=== PATIENT | male | born 1945 | race Caucasian/White ===

== ENCOUNTER → 2017-03-11 | Outpatient (CLI) | payer MEDICARE, OTHER ==
--- NOTE | 2017-03-11 15:39 | WOMENS IMAGING REPORT ---
EXAM DESCRIPTION: BONE DENSITY HIP/SPINE COMPLETED DATE/TIME: 03/11/2017 10:58 am REASON FOR STUDY: M81.0 M81.0 AGE-RELATED OSTEOPOROSIS W/O CURRENT PATHOLOGICAL FRAC COMPARISON: None. TECHNIQUE: Dual-Energy X-ray Absorptiometry (DEXA) of the AP Spine and Hip. LIMITATIONS: None. FINDINGS: LUMBAR SPINE: The bone mineral density (BMD) measured from L1-L4 in the AP projection correlates with a T-score of +1.2, which is normal as defined by the World Health Organization. HIP: The bone mineral density (BMD) measured in the left femoral neck at the hip correlates with a T-score of -1.7, which is osteopenic as defined by the World Health Organization. IMPRESSION: 1. LUMBAR SPINE: Normal 2. HIP: Osteopenic COMMENT: The World Health Organization defines low BMD as follows: T-score: Normal: Greater than -1.0 Osteopenia: Between -1.0 and -2.5 Osteoporosis: Less than -2.5 without fractures Established osteoporosis: Less than -2.5 with fractures In general, you may wish to consider: Diagnosis Treatment Follow-up DEXA Normal BMD Prevention 2-3 years Osteopenia Prevention/Therapy 1-2 years Osteoporosis Therapy Yearly TECHNICAL DOCUMENTATION: JOB ID: [id number] [employer]- All Rights Reserved
== END ==
LOC: WI 10:18
PROVIDERS: ATTEND Specialist
DX: M81.0 Age-related osteoporosis without current pathological fracture (principal)
CPT/HCPCS: 77080

== ENCOUNTER → 2017-03-27 | Outpatient (CLI) | payer MEDICARE, OTHER ==
--- NOTE | 2017-03-27 12:20 | RADIOLOGY REPORT (SQ) ---
EXAM DESCRIPTION: HIP LEFT AP/LATERAL COMPLETED DATE/TIME: 03/27/2017 12:02 pm REASON FOR STUDY: STRAIN OF MUSCLE, FASCIA AND TENDON OF LEFT HIP, SEQUELA,PAIN IN LEFT HIP M25.552 PAIN IN LEFT HIP S76.012S STRAIN OF MUSCLE, FASCIA AND TENDON OF LEFT HIP, SE COMPARISON: None. NUMBER OF VIEWS: Two views. TECHNIQUE: AP pelvis and additional frog-leg view of the left hip. LIMITATIONS: None. FINDINGS: MINERALIZATION: Osteopenia. LEFT HIP: No fracture or dislocation. No worrisome bone lesions. Mild moderate degenerative joint s pace narrowing. RIGHT HIP: No fracture or dislocation. No worrisome bone lesions. Mild moderate degenerate joint sp nikki narrowing. PUBIS AND ISCHIUM: No fracture. PELVIS: No fracture. SACRUM: No fracture or dislocation. No worrisome bone lesions. Mild degenerative changes. LOWER LUMBAR SPINE: No fracture or dislocation. No worrisome bone lesions. No significant disc disea se. SOFT TISSUES: Numerous surgical clips noted in the pelvis projecting over the pubic symphysis. OTHER: No other significant finding. IMPRESSION: No acute fracture or dislocation identified. Mild moderate degenerative joint space lian rowing of both hips. TECHNICAL DOCUMENTATION: JOB ID: [id number] [employer]- All Rights Reserved
== END ==
LOC: OD 11:07
PROVIDERS: ATTEND Obstetrics & Gynecology
DX: M25.552 Pain in left hip (principal); S76.012S Strain of muscle, fascia and tendon of left hip, sequela; X58.XXXS Exposure to other specified factors, sequela

== ENCOUNTER 2017-09-25 00:32 | Inpatient (IN) | payer MEDICARE, OTHER ==
[2017-09-25] MEDS ORDERED: ONDANSETRON HCL INJ/PF 4 MG/2 ML SDV IV ONE (01:48)
[2017-09-25] MEDS ORDERED: NORMAL SALINE 1000 ML 1,000 ML IV ONE (01:48)
[2017-09-25 02:52] LABS: ABSOLUTE LYMPHOCYTES (AUTO) 0.6 10^3/uL (0.5-4.7); ABSOLUTE MONOCYTES (AUTO) 0.4 10^3/uL (0.1-1.4); BASOPHILS % (AUTO) 0.3 % (0-2); EOSINOPHILS % (AUTO) 0.2 % (0-6); HEMATOCRIT 26.5 % (37.9-51.0); HEMOGLOBIN 9.2 g/dL (13.5-17.0); MEAN CORPUSCULAR HEMOGLOBIN 37.7 pg (27.0-33.4); MEAN CORPUSCULAR HGB CONC 34.7 g/dL (32.0-36.0); MEAN CORPUSCULAR VOLUME 109 fl (80-97); MONOCYTES % (AUTO) 10.8 % (3-13); PLATELET COUNT 169 10^3/uL (150-450); RED BLOOD COUNT 2.44 10^6/uL (4.35-5.55); RED CELL DISTRIBUTION WIDTH 15.5 % (11.5-14.0); SEGMENTED NEUTROPHILS % (AUTO) 74.7 % (42-78); TOTAL CELLS COUNTED % (AUTO) 100 %
[2017-09-25 02:59] LABS: ALANINE AMINOTRANSFERASE 46 U/L (21-72); ALBUMIN 3.9 g/dL (3.5-5.0); ALKALINE PHOSPHATASE 71 U/L (38-126); ANION GAP 14 (5-19); ASPARTATE AMINO TRANSFERASE 36 U/L (17-59); BILIRUBIN,DIRECT 0.4 mg/dL (0.0-0.4); BILIRUBIN,TOTAL 0.5 mg/dL (0.2-1.3); BLOOD UREA NITROGEN 25 mg/dL (7-20); CARBON DIOXIDE 17 mmol/L (22-30); CHLORIDE 109 mmol/L (98-107); GLUCOSE 137 mg/dL (75-110); POTASSIUM 3.9 mmol/L (3.6-5.0); SODIUM 139.6 mmol/L (137-145); TOTAL PROTEIN 7.5 g/dL (6.3-8.2)
--- NOTE | 2017-09-25 03:27 | ER Document Report ---
ED General - General Chief Complaint: Diarrhea Stated Complaint: DIARRHEA Time Seen by Provider: 09/25/17 01:48 Notes: Patient is a 72-year-old male who presents with complaint of diarrhea and feeling very weak. He says over last 2-3 days he has felt very weak and started having watery stools. He says he has been drinking liquids but has not been eating food because he has not had much appetite. Blood in the stool. No fevers. No vomiting. No chest pain. No shortness of breath. He says he does have history of ulcerative colitis. He says he was diagnosed just a few years ago at [facility]. Is currently medication for that and says his medications have not recently changed. He takes Entivo for his ulcerative colitis. He denies ever needing any type of surgery for ulcerative colitis. He does have history of prostate cancer. He is not currently in any form of chemotherapy. TRAVEL OUTSIDE OF THE [place] IN LAST 30 DAYS: No - Related Data Allergies/Adverse Reactions: Penicillins Allergy (Severe, Verified 09/25/17 00:33) facial swelling, redness Past Medical History - Social History Smoking Status: Never Smoker Chew tobacco use (# tins/day): No Frequency of alcohol use: Rare Drug Abuse: None Family History: Reviewed & Not Pertinent Patient has suicidal ideation: No Patient has homicidal ideation: No - Past Medical History Cardiac Medical History: Reports: Hx Heart Attack - 2010, Hx Hypercholesterolemia, Hx Hypertension Denies: Hx Coronary Artery Disease Pulmonary Medical History: Denies: Hx Asthma, Hx Bronchitis, Hx COPD, Hx Pneumonia Neurological Medical History: Denies: Hx Cerebrovascular Accident, Hx Seizures Renal/ Medical History: Denies: Hx Peritoneal Dialysis GI Medical History: Reports: Hx Ulcerative Colitis Musculoskeltal Medical History: Denies Hx Arthritis Infectious Medical History: Past Surgical History: Reports: Hx Cardiac Surgery - StentComment Only: Hx Open Heart Surgery - Cath 05/15/22 - 3 stents - Immunizations Hx Diphtheria, Pertussis, Tetanus Vaccination: Yes Hx Pneumococcal Vaccination: 08/26/12 Review of Systems - Review of Systems Notes: My Normal Review Basic REVIEW OF SYSTEMS: CONSTITUTIONAL : Denies fever, chills, or sweats. Is felt weak. EENT: Denies eye, ear, throat, or mouth pain or symptoms. Denies nasal or sinus congestion. RESPIRATORY: Denies cough, cold, or chest congestion. Denies shortness of breath, difficulty breathing, or wheezing. GASTROINTESTINAL: Denies abdominal pain. Diarrhea. No vomiting. MUSCULOSKELETAL: Denies neck or back pain or joint pain or swelling. SKIN: Denies rash or skin lesions. NEUROLOGICAL: Denies altered mental status or loss of consciousness. Denies headache. Denies weakness or paralysis or loss of use of either side. Denies problems with gait or speech. Denies sensory or motor loss.ion. ALL OTHER SYSTEMS REVIEWED AND NEGATIVE. Physical Exam - Vital signs Vitals: Temp Pulse Resp BP Pulse Ox 98.4 F 56 L 23 H 101/83 96 09/25/17 00:45 09/25/17 00:45 09/25/17 00:45 09/25/17 00:45 09/25/17 00:45 - Notes Notes: General Appearance: Well nourished, alert, cooperative, no acute distress, no obvious discomfort. Vitals: reviewed, See vital signs table. Head: no swelling or tenderness to the head Eyes: PERRL, EOMI, Conjuctiva clear Mouth: No decreasd moisture Lungs: No wheezing, No rales, No rhonci, No accessory muscle use, good air exchange bilaterally. Heart: Normal rate, Regular rythm, No murmur, no rub Abdomen: Normal BS, soft, No rigidity, No abdominal tenderness, No guarding, no rebound, no abdominal masses, no organomegaly Extremities: strength 5/5 in all extremities, good pulses in all extremities, no swelling or tenderness in the extremities, no edema. Skin: warm, dry, appropriate color, no rash Neuro: speech clear, oriented x 3, normal affect, responds appropriately to questions. Course - Re-evaluation Re-evalutation: 09/25/17 03:44 She is family care physician is Dr. hendrix. Patient has received some IV fluids. His serum creatinine was 2.98. His last serum creatinine was 1.25. He is in acute renal failure. Is difficult to tell if this is dehydration of this is more medication related. He did start feeling weak just before his diarrhea started and therefore this could potentially be medication related and the weakness was related to the kidney failure. Due to his acute kidney failure we will admit the patient. Said no blood in the stool. He does have anemia which she says is chronic. He otherwise looks well. I did speak with the hospitalist , Dr. Burns, who agrees to admit the patient. Dictation of this chart was performed using voice recognition software; therefore, there may be some unintended grammatical errors. - Vital Signs Vital signs: Temp Pulse Resp BP Pulse Ox 98.4 F 56 L 23 H 101/83 96 09/25/17 00:45 09/25/17 00:45 09/25/17 00:45 09/25/17 00:45 09/25/17 00:45 - Laboratory Result Diagrams: 09/25/17 02:30 09/25/17 02:30 Laboratory results interpreted by me: 09/25/17 09/25/17 02:30 02:30 RBC 2.44 L Hgb 9.2 L Hct 26.5 L MCV 109 H MCH 37.7 H RDW 15.5 H Chloride 109 H Carbon Dioxide 17 L BUN 25 H Creatinine 2.98 H Est GFR ( Amer) 25 L Est GFR (Non-Af Amer) 21 L Glucose 137 H - EKG Interpretation by Me Additional EKG results interpreted by me: 09/25/17 03:27 EKG is reviewed and interpreted by me. EKG shows sinus rhythm with rate of [address] segment elevation. No acute changes comparison to his old EKG from March 27, 2016. UT interval is within normal range. QRS duration and QTc intervals are slightly prolonged. Discharge - Discharge Clinical Impression: Acute renal failure Qualifiers: Acute renal failure type: unspecified Qualified Code(s): N17.9 - Acute kidney failure, unspecified Diarrhea Qualifiers: Diarrhea type: unspecified type Qualified Code(s): R19.7 - Diarrhea, unspecified Condition: Stable Disposition: ADMITTED OBSERVATION Admitting Provider: Hospitalist Unit Admitted: Telemetry Referrals: ALEISHA FONG MD [Primary Care Provider] - Follow up as needed
[2017-09-25] MEDS ORDERED: IPRATROPIUM/ALBUTEROL 0.5-2.5 MG/3 ML AMPUL NEB PRN (03:45)
[2017-09-25] MEDS ORDERED: ACETAMINOPHEN 325 MG TABLET PO PRN (03:45)
[2017-09-25] MEDS ORDERED: MAG HYDROX/AL HYDROX/SIMETH SUSP 30 ML UDCUP PO PRN (03:45)
[2017-09-25] MEDS: NORMAL SALINE 1000 ML 1,000 ML IV SCH ×2 (05:06→07:34)
--- NOTE | 2017-09-25 06:18 | PDOC H&P ---
History of Present Illness Admission Date/PCP: 09/25/17 03:49 ALEISHA FONG MD Patient complains of: Diarrhea and generalized weakness with fatigue History of Present Illness: OSCAR JOHN is a 72 year old male with a past medical history of ulcerative colitis on entivo, prostate cancer status post brachii therapy and radiation 8 months ago, Morbid obesity will evaluate for metabolic cause with evaluation of thyroid function and dietitian consultation and chronic kidney disease. Patient presents after 5 days of diarrhea during which he was without fever but developed symptoms of gout in his foot prompting him to take double colchicine in addition to allopurinol 4 days. Get symptoms resolved but loose stools have persisted prompting him to seek evaluation emergency room. He is found to be without leukocytosis or fever but mild hypotension and acute on chronic renal failure. He started on an IV fluid challenge for the hospitalist for admission. Past Medical History Cardiac Medical History: Reports: Myocardial Infarction - 2010, Hyperlipidema, Hypertension Denies: Coronary Artery Disease Pulmonary Medical History: Denies: Asthma, Bronchitis, Chronic Obstructive Pulmonary Disease (COPD), Pneumonia Neurological Medical History: Denies: Seizures Endocrine Medical History: Reports: Obesity Malignancy Medical History: Reports: Other - Prostate cancer GI Medical History: Reports: Ulcerative Colitis Musculoskeltal Medical History: Denies: Arthritis Hematology: Reports: Anemia Past Surgical History Past Surgical History: Social History Information Source: Patient, [facility] Records Smoking Status: Never Smoker Frequency of Alcohol Use: Occasional Hx Recreational Drug Use: No Hx Prescription Drug Abuse: No - Advance Directive Resuscitation Status: Full Code Family History Family History: DM Parental Family History Reviewed: Yes Children Family History Reviewed: Yes Sibling(s) Family History Reviewed.: Yes Medication/Allergy Home Medications: Rosuvastatin Calcium [Crestor 20 mg Tablet] 20 mg PO QHS 01/18/12 Alfuzosin HCl [Uroxatral SR 10 mg Tablet] 1 tab.sr PO QHS 10/19/13 Finasteride [Proscar 5 mg Tablet] 1 tab PO DAILY 10/19/13 Clopidogrel Bisulfate [Plavix 75 mg Tablet] 75 mg PO DAILY 12/10/13 Esomeprazole Magnesium [Nexium] 40 mg PO DAILY 12/10/13 Allopurinol [Zyloprim 100 mg Tablet] 100 mg PO DAILY 01/18/15 Lisinopril [Prinivil 20 mg Tablet] 10 mg PO QHS 02/21/15 Metoprolol Succinate [Toprol Xl 50 mg Tab.sr] 50 mg PO DAILY 02/21/15 Azathioprine 50 mg PO DAILY 03/26/16 Vedolizumab [Entyvio] 300 mg IV ASDIR PRN 03/26/16 Oxycodone HCl/Acetaminophen [Percocet 5-325 mg Tablet] 1 tab PO ASDIR PRN #15 tablet 04/03/16 Allergies/Adverse Reactions: Penicillins Allergy (Severe, Verified 09/25/17 00:33) facial swelling, redness Review of Systems Constitutional: ABSENT: chills, fever(s), headache(s), weight gain, weight loss Eyes: ABSENT: visual disturbances Ears: ABSENT: hearing changes Cardiovascular: ABSENT: chest pain, dyspnea on exertion, edema, orthropnea, palpitations Respiratory: ABSENT: cough, hemoptysis Gastrointestinal: ABSENT: abdominal pain, constipation, diarrhea, hematemesis, hematochezia, nausea, vomiting Genitourinary: ABSENT: dysuria, hematuria Musculoskeletal: ABSENT: joint swelling Integumentary: ABSENT: rash, wounds Neurological: ABSENT: abnormal gait, abnormal speech, confusion, dizziness, focal weakness, syncope Psychiatric: ABSENT: anxiety, depression, homidical ideation, suicidal ideation Endocrine: ABSENT: cold intolerance, heat intolerance, polydipsia, polyuria Hematologic/Lymphatic: ABSENT: easy bleeding, easy bruising Physical Exam Vital Signs: Temp Pulse Resp BP Pulse Ox 98.4 F 56 L 23 H 101/83 96 09/25/17 00:45 09/25/17 00:45 09/25/17 00:45 09/25/17 00:45 09/25/17 00:45 General appearance: PRESENT: no acute distress, well-developed, well-nourished Head exam: PRESENT: atraumatic, normocephalic Eye exam: PRESENT: conjunctiva pink, EOMI, PERRLA. ABSENT: scleral icterus Ear exam: PRESENT: normal external ear exam Mouth exam: PRESENT: moist, tongue midline Neck exam: ABSENT: carotid bruit, JVD, lymphadenopathy, thyromegaly Respiratory exam: PRESENT: clear to auscultation lasha. ABSENT: rales, rhonchi, wheezes Cardiovascular exam: PRESENT: RRR. ABSENT: diastolic murmur, rubs, systolic murmur Pulses: PRESENT: normal dorsalis pedis pul Vascular exam: PRESENT: normal capillary refill GI/Abdominal exam: PRESENT: normal bowel sounds, soft. ABSENT: distended, guarding, mass, organolmegaly, rebound, tenderness Rectal exam: PRESENT: deferred Extremities exam: PRESENT: full ROM. ABSENT: calf tenderness, clubbing, pedal edema Neurological exam: PRESENT: alert, awake, oriented to person, oriented to place , oriented to time, oriented to situation, CN II-XII grossly intact. ABSENT: motor sensory deficit Psychiatric exam: PRESENT: appropriate affect, normal mood. ABSENT: homicidal ideation, suicidal ideation Skin exam: PRESENT: dry, intact, warm. ABSENT: cyanosis, rash Assessment & Plan - Diagnosis (1) Hypotension Is this a current diagnosis for this admission?: Yes Plan: Likely multifactorial given persistent diarrhea resulting in hypovolemia and metoprolol. IV fluid challenge, hold hypertensive medications reevaluate orthostatics. (2) Acute renal failure Qualifiers: Acute renal failure type: unspecified Qualified Code(s): N17.9 - Acute kidney failure, unspecified Is this a current diagnosis for this admission?: Yes Plan: Multifactorial secondary to diarrhea resulting in hypovolemia with metoprolol and colchicine 4 days. Correct hypotension and hypovolemia, avoid nephrotoxic meds and doses, education (3) Diarrhea Qualifiers: Diarrhea type: unspecified type Qualified Code(s): R19.7 - Diarrhea, unspecified Is this a current diagnosis for this admission?: Yes Plan: Most likely gastroenteritis exacerbated by colchicine. Supportive care (4) Morbid obesity Is this a current diagnosis for this admission?: Yes Plan: Morbid obesity will evaluate for metabolic cause with evaluation of thyroid function and dietitian consultation - Time Time Spent: 50 to 70 Minutes - Inpatient Certification Medical Necessity: Need Close Monitoring Due to Risk of Patient Decompensation
[2017-09-25] MEDS: LANSOPRAZOLE 30 MG TAB.RAP.DR PO SCH (06:34)
[2017-09-25] MEDS: HEPARIN SOD (PORCINE) 5,000 UNIT/ML 1 ML SYRINGE SUBCUT SCH ×3 (06:34→22:42)
[2017-09-25 06:59] LABS: ABSOLUTE LYMPHOCYTES (AUTO) 0.6 10^3/uL (0.5-4.7); ABSOLUTE MONOCYTES (AUTO) 0.4 10^3/uL (0.1-1.4); ABSOLUTE NEUT (AUTO) 2.2 10^3/uL (1.7-8.2); BASOPHILS % (AUTO) 0.3 % (0-2); EOSINOPHILS % (AUTO) 0.3 % (0-6); HEMATOCRIT 23.3 % (37.9-51.0); LYMPHOCYTES % (AUTO) 18.9 % (13-45); MEAN CORPUSCULAR HEMOGLOBIN 37.7 pg (27.0-33.4); MEAN CORPUSCULAR HGB CONC 34.5 g/dL (32.0-36.0); MEAN CORPUSCULAR VOLUME 109 fl (80-97); MONOCYTES % (AUTO) 12.1 % (3-13); PLATELET COUNT 148 10^3/uL (150-450); RED BLOOD COUNT 2.13 10^6/uL (4.35-5.55); RED CELL DISTRIBUTION WIDTH 15.3 % (11.5-14.0); SEGMENTED NEUTROPHILS % (AUTO) 68.4 % (42-78); TOTAL CELLS COUNTED % (AUTO) 100 %; WHITE BLOOD COUNT 3.2 10^3/uL (4.0-10.5)
[2017-09-25 07:12] LABS: ANION GAP 10 (5-19); BLOOD UREA NITROGEN 24 mg/dL (7-20); CALCIUM 8.1 mg/dL (8.4-10.2); CARBON DIOXIDE 19 mmol/L (22-30); CHLORIDE 110 mmol/L (98-107); GLUCOSE 101 mg/dL (75-110); POTASSIUM 3.8 mmol/L (3.6-5.0); SODIUM 139.2 mmol/L (137-145)
--- NOTE | 2017-09-25 08:07 | EKG REPORT ---
SEVERITY:- ABNORMAL ECG - SINUS RHYTHM IVCD, CONSIDER ATYPICAL RBBB : Confirmed by: Petey Petty MD 25-Sep-2017 08:06:47
[2017-09-25] MEDS: DOCUSATE SODIUM 100 MG CAPSULE PO SCH (09:16)
[2017-09-25] MEDS: CLOPIDOGREL BISULFATE 75 MG TABLET PO SCH (09:18)
[2017-09-25] MEDS ORDERED: FINASTERIDE 5 MG TABLET PO SCH (10:00)
--- NOTE | 2017-09-25 15:56 | PDOC PROGRESS REPORT ---
Subjective Progress Note for:: 09/25/17 Subjective:: Patient seen on rounds. He is resting in bed. He denies any breath, dyspnea or chest pain. Denies any dizziness being supine. He states the dizziness has improved since he is coming in while standing. He continues to have frequent diarrhea stools. He denies any abdominal pain or nausea. He denies any fever or chills. He denies any dysuria. He denies any significant arthralgias or myalgias. Remaining review of systems are negative. Reason For Visit: HYPOTENSION, ARF, UC FLAIR Physical Exam Vital Signs: Temp Pulse Resp BP Pulse Ox 97.8 F 66 18 109/50 L 99 09/25/17 11:02 09/25/17 14:46 09/25/17 14:46 09/25/17 11:02 09/25/17 14:46 Intake & Output 09/24/17 09/25/17 09/26/17 06:59 06:59 06:59 Output Total 200 Balance -200 General appearance: PRESENT: no acute distress, morbidly obese, well-developed, well-nourished Head exam: PRESENT: atraumatic, normocephalic Eye exam: PRESENT: conjunctiva pale, EOMI, PERRLA. ABSENT: scleral icterus Ear exam: PRESENT: normal external ear exam Mouth exam: PRESENT: dry mucosa, tongue midline Neck exam: ABSENT: carotid bruit, JVD, lymphadenopathy, thyromegaly Respiratory exam: PRESENT: clear to auscultation lasha. ABSENT: rales, rhonchi, wheezes Cardiovascular exam: PRESENT: RRR. ABSENT: diastolic murmur, rubs, systolic murmur Pulses: PRESENT: normal dorsalis pedis pul Vascular exam: PRESENT: normal capillary refill GI/Abdominal exam: PRESENT: normal bowel sounds, soft. ABSENT: distended, guarding, mass, organolmegaly, rebound, tenderness Rectal exam: PRESENT: deferred Extremities exam: PRESENT: full ROM. ABSENT: calf tenderness, clubbing, pedal edema Neurological exam: PRESENT: alert, awake, oriented to person, oriented to place , oriented to time, oriented to situation, CN II-XII grossly intact. ABSENT: motor sensory deficit Psychiatric exam: PRESENT: appropriate affect, normal mood. ABSENT: homicidal ideation, suicidal ideation Skin exam: PRESENT: abrasion Results Laboratory Results: 09/25/17 06:30 09/25/17 06:30 09/25/17 09/25/17 06:30 06:30 WBC 3.2 L RBC 2.13 L Hgb 8.0 L Hct 23.3 L MCV 109 H MCH 37.7 H MCHC 34.5 RDW 15.3 H Plt Count 148 L Seg Neutrophils % 68.4 Lymphocytes % 18.9 Monocytes % 12.1 Eosinophils % 0.3 Basophils % 0.3 Absolute Neutrophils 2.2 Absolute Lymphocytes 0.6 Absolute Monocytes 0.4 Absolute Eosinophils 0.0 Absolute Basophils 0.0 Sodium 139.2 Potassium 3.8 Chloride 110 H Carbon Dioxide 19 L Anion Gap 10 BUN 24 H Creatinine 2.63 H Est GFR ( Amer) 29 L Est GFR (Non-Af Amer) 24 L Glucose 101 Calcium 8.1 L Assessment & Plan - Diagnosis (1) Acute renal failure Qualifiers: Acute renal failure type: unspecified Qualified Code(s): N17.9 - Acute kidney failure, unspecified Is this a current diagnosis for this admission?: Yes Plan: Baseline creatinine is 1.1-1.5. He is still 2.3. We will continue IV hydration will add sodium bicarbonate and monitor. We will hold his KRISS inhibitor and avoid all nephrotoxic medications and dosage. (2) Metabolic acidosis Is this a current diagnosis for this admission?: Yes Plan: Secondary to acute kidney injury. We will continue to IV hydrate and replete sodium bicarbonate (3) Diarrhea Qualifiers: Diarrhea type: unspecified type Qualified Code(s): R19.7 - Diarrhea, unspecified Is this a current diagnosis for this admission?: Yes Plan: We will send for culture and check for guaiac occult blood (4) Hypotension Qualifiers: Hypotension type: hypotension due to drug Qualified Code(s): I95.2 - Hypotension due to drugs Is this a current diagnosis for this admission?: Yes Plan: Dehydration from diarrhea and KRISS inhibitor (5) Iron deficiency anemia Qualifiers: Iron deficiency anemia type: unspecified iron deficiency Qualified Code(s) : D50.9 - Iron deficiency anemia, unspecified Is this a current diagnosis for this admission?: Yes Plan: We will check stool for occult blood. He has not noted any blood in his diarrhea. He has a history for of iron deficient deficiency anemia. He had hemoglobin checked in hematology on the which was 9.8. He was 9.2 on arrival here and now down to 8 this morning. Some of this may be dilutional andtransfuse if less than 8 will obtain CBC this afternoon (6) Morbid obesity Is this a current diagnosis for this admission?: Yes (7) Ulcerative colitis Qualifiers: Ulcerative colitis location: unspecified ulcerative colitis location Digestive disease complication type: without complication Qualified Code(s): K51.90 - Ulcerative colitis, unspecified, without complications Is this a current diagnosis for this admission?: Yes Plan: On [employer] and [employer] - Time Time Spent with patient: 25-34 minutes Smoking Cessation Education: 3 to 10 minutes Medications reviewed and adjusted accordingly: Yes Anticipated discharge: Home Within: within 24 hours
[2017-09-25] MEDS: TAMSULOSIN HCL 0.4 MG CAP.SR.24H PO SCH (17:58)
[2017-09-25] MEDS: SODIUM BICARBONATE 650 MG TABLET PO SCH ×2 (17:59→23:48)
[2017-09-25 18:04] LABS: ABSOLUTE LYMPHOCYTES (AUTO) 0.6 10^3/uL (0.5-4.7); ABSOLUTE MONOCYTES (AUTO) 0.3 10^3/uL (0.1-1.4); BASOPHILS % (AUTO) 0.4 % (0-2); HEMATOCRIT 23.8 % (37.9-51.0); HEMOGLOBIN 8.1 g/dL (13.5-17.0); LYMPHOCYTES % (AUTO) 19.7 % (13-45); MEAN CORPUSCULAR HEMOGLOBIN 37.5 pg (27.0-33.4); MEAN CORPUSCULAR HGB CONC 34.1 g/dL (32.0-36.0); MEAN CORPUSCULAR VOLUME 110 fl (80-97); MONOCYTES % (AUTO) 11.2 % (3-13); PLATELET COUNT 143 10^3/uL (150-450); RED BLOOD COUNT 2.16 10^6/uL (4.35-5.55); RED CELL DISTRIBUTION WIDTH 15.1 % (11.5-14.0); SEGMENTED NEUTROPHILS % (AUTO) 67.7 % (42-78); TOTAL CELLS COUNTED % (AUTO) 100 %; WHITE BLOOD COUNT 2.9 10^3/uL (4.0-10.5)
[2017-09-25] MEDS: NORMAL SALINE 1000 ML 1,000 ML IV PRN (19:30)
[2017-09-25] MEDS ORDERED: LISINOPRIL 10 MG TABLET PO SCH (22:00)
[2017-09-25] MEDS ORDERED: (PENDING PHARMACY ID) (Rosuvastatin Calcium [Crestor] 20 MG) PO SCH (22:00)
[2017-09-25] MEDS: ATORVASTATIN CALCIUM 40 MG TABLET PO SCH (22:39)
[2017-09-26] MEDS: NORMAL SALINE 1000 ML 1,000 ML IV PRN (05:46)
[2017-09-26] MEDS: LANSOPRAZOLE 30 MG TAB.RAP.DR PO SCH (05:47)
[2017-09-26] MEDS: SODIUM BICARBONATE 650 MG TABLET PO SCH ×3 (05:47→18:48)
[2017-09-26] MEDS: HEPARIN SOD (PORCINE) 5,000 UNIT/ML 1 ML SYRINGE SUBCUT SCH ×3 (05:47→21:48)
[2017-09-26 07:10] LABS: ABSOLUTE LYMPHOCYTES (AUTO) 0.4 10^3/uL (0.5-4.7); ABSOLUTE MONOCYTES (AUTO) 0.3 10^3/uL (0.1-1.4); ABSOLUTE NEUT (AUTO) 1.9 10^3/uL (1.7-8.2); BASOPHILS % (AUTO) 0.4 % (0-2); HEMATOCRIT 22.5 % (37.9-51.0); LYMPHOCYTES % (AUTO) 15.9 % (13-45); MEAN CORPUSCULAR HEMOGLOBIN 37.5 pg (27.0-33.4); MEAN CORPUSCULAR HGB CONC 34.8 g/dL (32.0-36.0); MEAN CORPUSCULAR VOLUME 108 fl (80-97); MONOCYTES % (AUTO) 9.9 % (3-13); PLATELET COUNT 130 10^3/uL (150-450); RED BLOOD COUNT 2.09 10^6/uL (4.35-5.55); RED CELL DISTRIBUTION WIDTH 15.5 % (11.5-14.0); SEGMENTED NEUTROPHILS % (AUTO) 72.8 % (42-78); TOTAL CELLS COUNTED % (AUTO) 100 %; WHITE BLOOD COUNT 2.7 10^3/uL (4.0-10.5)
[2017-09-26 07:14] LABS: HEMOGLOBIN 7.8 g/dL (13.5-17.0)
[2017-09-26 07:30] LABS: ANION GAP 9 (5-19); BLOOD UREA NITROGEN 19 mg/dL (7-20); CALCIUM 8.4 mg/dL (8.4-10.2); CARBON DIOXIDE 19 mmol/L (22-30); CHLORIDE 112 mmol/L (98-107); GLUCOSE 90 mg/dL (75-110)
[2017-09-26] MEDS: AZATHIOPRINE 50 MG TABLET PO SCH (11:26)
[2017-09-26] MEDS: DOCUSATE SODIUM 100 MG CAPSULE PO SCH (11:26)
[2017-09-26] MEDS: CLOPIDOGREL BISULFATE 75 MG TABLET PO SCH (11:26)
[2017-09-26] MEDS: ALLOPURINOL 100 MG TABLET PO SCH (11:26)
[2017-09-26] MEDS ORDERED: FUROSEMIDE INJ/PF 20 MG/2 ML SDV IV PRN (15:07)
[2017-09-26] MEDS ORDERED: NORMAL SALINE 250 ML IV PRN ×2 (15:07)
--- NOTE | 2017-09-26 15:24 | PDOC PROGRESS REPORT ---
Subjective Progress Note for:: 09/26/17 Subjective:: Patient states she is doing extremely well he has not had any further diarrhea No abdominal pain No fever no chills Reason For Visit: JEWEL, METABOLIC ACIDOSIS, ANEMIA Physical Exam Vital Signs: Temp Pulse Resp BP Pulse Ox 99.2 F 78 16 111/61 91 L 09/26/17 03:48 09/26/17 14:00 09/26/17 13:22 09/26/17 03:48 09/26/17 03:48 Intake & Output 09/25/17 09/26/17 09/27/17 00:59 00:59 00:59 Intake Total 5 1692 Output Total 200 200 Balance -195 1492 Weight 129.9 kg 133.8 kg General appearance: PRESENT: no acute distress, morbidly obese, well-developed, well-nourished Head exam: PRESENT: atraumatic, normocephalic Eye exam: PRESENT: conjunctiva pale, EOMI, PERRLA. ABSENT: scleral icterus Ear exam: PRESENT: normal external ear exam Mouth exam: PRESENT: dry mucosa, tongue midline Neck exam: ABSENT: carotid bruit, JVD, lymphadenopathy, thyromegaly Respiratory exam: PRESENT: clear to auscultation lasha. ABSENT: rales, rhonchi, wheezes Cardiovascular exam: PRESENT: RRR. ABSENT: diastolic murmur, rubs, systolic murmur Pulses: PRESENT: normal dorsalis pedis pul Vascular exam: PRESENT: normal capillary refill GI/Abdominal exam: PRESENT: normal bowel sounds, soft. ABSENT: distended, guarding, mass, organolmegaly, rebound, tenderness Rectal exam: PRESENT: deferred Extremities exam: PRESENT: full ROM. ABSENT: calf tenderness, clubbing, pedal edema Results Laboratory Results: 09/26/17 05:30 09/26/17 05:30 09/25/17 09/26/17 09/26/17 17:33 05:30 05:30 WBC 2.9 L 2.7 L RBC 2.16 L 2.09 L Hgb 8.1 L 7.8 L Hct 23.8 L 22.5 L MCV 110 H 108 H MCH 37.5 H 37.5 H MCHC 34.1 34.8 RDW 15.1 H 15.5 H Plt Count 143 L 130 L Seg Neutrophils % 67.7 72.8 Lymphocytes % 19.7 15.9 Monocytes % 11.2 9.9 Eosinophils % 1.0 1.0 Basophils % 0.4 0.4 Absolute Neutrophils 2.0 1.9 Absolute Lymphocytes 0.6 0.4 L Absolute Monocytes 0.3 0.3 Absolute Eosinophils 0.0 0.0 Absolute Basophils 0.0 0.0 Sodium 140.0 Potassium 4.0 Chloride 112 H Carbon Dioxide 19 L Anion Gap 9 BUN 19 Creatinine 1.37 H Est GFR ( Amer) > 60 Est GFR (Non-Af Amer) 51 L Glucose 90 Calcium 8.4 Assessment & Plan - Diagnosis (1) Anemia Qualifiers: Anemia type: unspecified type Qualified Code(s): D64.9 - Anemia, unspecified Is this a current diagnosis for this admission?: Yes Plan: Anemia likely secondary to chronic disease ; patient is on chemotherapeutic agents ; will transfuse 2 units of packed red cells We will review iron B12 studies (2) Acute renal failure Qualifiers: Acute renal failure type: unspecified Qualified Code(s): N17.9 - Acute kidney failure, unspecified Is this a current diagnosis for this admission?: Yes Plan: Resolving (3) Ulcerative colitis Qualifiers: Ulcerative colitis location: unspecified ulcerative colitis location Digestive disease complication type: without complication Qualified Code(s): K51.90 - Ulcerative colitis, unspecified, without complications Is this a current diagnosis for this admission?: Yes - Time Time Spent with patient: Patient may be discharged in a.m. if clinically stable Repeat CBC and BMP in a.m. Time Spent with patient: 25-34 minutes
[2017-09-26 18:11] LABS: FOLATE 6.69 ng/mL (>2.76)
[2017-09-26] MEDS: TAMSULOSIN HCL 0.4 MG CAP.SR.24H PO SCH (18:48)
[2017-09-26] MEDS: ATORVASTATIN CALCIUM 40 MG TABLET PO SCH (21:47)
[2017-09-27] MEDS: SODIUM BICARBONATE 650 MG TABLET PO SCH ×3 (00:31→11:16)
[2017-09-27 03:46] LABS: ANION GAP 14 (5-19); BLOOD UREA NITROGEN 15 mg/dL (7-20); CALCIUM 8.5 mg/dL (8.4-10.2); CARBON DIOXIDE 21 mmol/L (22-30); CHLORIDE 106 mmol/L (98-107); GLUCOSE 103 mg/dL (75-110); POTASSIUM 3.9 mmol/L (3.6-5.0)
[2017-09-27 03:59] LABS: ABSOLUTE LYMPHOCYTES (AUTO) 0.5 10^3/uL (0.5-4.7); ABSOLUTE MONOCYTES (AUTO) 0.3 10^3/uL (0.1-1.4); ABSOLUTE NEUT (AUTO) 1.6 10^3/uL (1.7-8.2); BASOPHILS % (AUTO) 0.3 % (0-2); EOSINOPHILS % (AUTO) 0.9 % (0-6); HEMATOCRIT 28.5 % (37.9-51.0); LYMPHOCYTES % (AUTO) 20.9 % (13-45); MEAN CORPUSCULAR HEMOGLOBIN 35.2 pg (27.0-33.4); MEAN CORPUSCULAR HGB CONC 34.6 g/dL (32.0-36.0); MONOCYTES % (AUTO) 12.1 % (3-13); PLATELET COUNT 139 10^3/uL (150-450); RED CELL DISTRIBUTION WIDTH 21.6 % (11.5-14.0); SEGMENTED NEUTROPHILS % (AUTO) 65.8 % (42-78); TOTAL CELLS COUNTED % (AUTO) 100 %; WHITE BLOOD COUNT 2.4 10^3/uL (4.0-10.5)
[2017-09-27 04:00] LABS: HEMOGLOBIN 9.9 g/dL (13.5-17.0)
[2017-09-27 04:01] LABS: MEAN CORPUSCULAR VOLUME 102 fl (80-97)
[2017-09-27] MEDS: HEPARIN SOD (PORCINE) 5,000 UNIT/ML 1 ML SYRINGE SUBCUT SCH ×2 (06:15→13:11)
[2017-09-27] MEDS: LANSOPRAZOLE 30 MG TAB.RAP.DR PO SCH (06:15)
[2017-09-27 08:30] VITALS: BP 98/55
[2017-09-27] MEDS: DOCUSATE SODIUM 100 MG CAPSULE PO SCH (09:09)
[2017-09-27] MEDS: AZATHIOPRINE 50 MG TABLET PO SCH (11:12)
[2017-09-27] MEDS: CLOPIDOGREL BISULFATE 75 MG TABLET PO SCH (11:14)
[2017-09-27] MEDS: ALLOPURINOL 100 MG TABLET PO SCH (11:14)
[2017-09-27] MEDS ORDERED: FERUMOXYTOL 510 MG in NORMAL SALINE 100 ML IV ONE (12:06)
--- NOTE | 2017-09-27 12:21 | PDOC DISCHARGE SUMMARY ---
General - Admit/Disc Date/PCP Admission Date/Primary Care Provider: 09/25/17 03:49 ALEISHA FONG MD Discharge Date: 09/27/17 - Discharge Diagnosis (1) Anemia Is this a current diagnosis for this admission?: Yes (2) Acute renal failure Is this a current diagnosis for this admission?: Yes (3) Ulcerative colitis Is this a current diagnosis for this admission?: Yes - Additional Information Resuscitation Status: Full Code Discharge Activity: Activity As Tolerated Home Medications: Alfuzosin HCl [Uroxatral] 10 mg PO DAILY 09/25/17 Allopurinol [Zyloprim 100 mg Tablet] 100 mg PO DAILY 09/25/17 Azathioprine [Imuran 50 mg Tablet] 50 mg PO DAILY 09/25/17 Clopidogrel Bisulfate [Plavix 75 mg Tablet] 75 mg PO DAILY 09/25/17 Lisinopril [Prinivil 10 mg Tablet] 10 mg PO DAILY 09/25/17 Metoprolol Succinate [Toprol Xl 50 mg Tab.sr] 50 mg PO DAILY 09/25/17 Pantoprazole Sodium [Protonix] 40 mg PO DAILY 09/25/17 Rosuvastatin Calcium [Crestor] 20 mg PO QHS 09/25/17 History of Present Illness Patient complains of: diarrhea dehydration History of Present Illness: OSCAR JOHN is a 72 year old male with a past medical history of ulcerative colitis on entivo, prostate cancer status post brachii therapy and radiation 8 months ago, Morbid obesity will evaluate for metabolic cause with evaluation of thyroid function and dietitian consultation and chronic kidney disease. Patient presents after 5 days of diarrhea during which he was without fever but developed symptoms of gout in his foot prompting him to take double colchicine in addition to allopurinol 4 days. Get symptoms resolved but loose stools have persisted prompting him to seek evaluation emergency room. He is found to be without leukocytosis or fever but mild hypotension and acute on chronic renal failure. He started on an IV fluid challenge for the hospitalist for admission. Hospital Course Hospital Course: (1) Anemia Iron deficiency anemia and anemia of chronic disease Serum iron was low at 18 vitamin B12 folate were within normal range Patient was transfused 2 units of packed red cells and his H&H is 9 and 28 at discharge Patient did not want to have iron replacement during his hospitalization and wishes to follow-up with Dr. Redmond (2) Acute on chronic renal failure Patient has CKD stage III His creatinine was close to 3 on admission After hydration it is 1.3 close to baseline (3) Ulcerative colitis We were concerned about an exacerbation of ulcerative colitis CRP is elevated Patient does have low-grade fever We discussed discharging the patient on Cipro and Flagyl Patient is reluctant to take antibiotics and states he will follow-up with his own systems administrator Noted that patient does not have any GI diarrhea and abdominal pain at time of discharge Patient is to continue his present medications Physical Exam Vital Signs: Temp Pulse Resp BP Pulse Ox 100.6 F H 89 19 98/55 L 98 09/27/17 08:00 09/27/17 08:00 09/27/17 08:00 09/27/17 08:00 09/27/17 08:00 Intake & Output 09/26/17 09/27/17 09/28/17 00:59 00:59 00:59 Intake Total 5 2042 2450 Output Total 165 087 3387 Balance -195 1842 350 Weight 129.9 kg 133.8 kg 133.8 kg General appearance: PRESENT: no acute distress, morbidly obese, well-developed, well-nourished Head exam: PRESENT: atraumatic, normocephalic Eye exam: PRESENT: conjunctiva pale, EOMI, PERRLA. ABSENT: scleral icterus Ear exam: PRESENT: normal external ear exam Mouth exam: PRESENT: dry mucosa, tongue midline Neck exam: ABSENT: carotid bruit, JVD, lymphadenopathy, thyromegaly Respiratory exam: PRESENT: clear to auscultation lasha. ABSENT: rales, rhonchi, wheezes Cardiovascular exam: PRESENT: RRR. ABSENT: diastolic murmur, rubs, systolic murmur Pulses: PRESENT: normal dorsalis pedis pul Vascular exam: PRESENT: normal capillary refill GI/Abdominal exam: PRESENT: normal bowel sounds, soft. ABSENT: distended, guarding, mass, organolmegaly, rebound, tenderness Rectal exam: PRESENT: deferred Extremities exam: PRESENT: full ROM. ABSENT: calf tenderness, clubbing, pedal edema Results Laboratory Results: 09/27/17 03:15 09/27/17 03:15 09/26/17 09/26/17 09/27/17 05:30 15:30 03:15 WBC 2.4 L RBC 2.80 L Hgb 9.9 L D Hct 28.5 L MCV 102 H D MCH 35.2 H MCHC 34.6 RDW 21.6 H Plt Count 139 L Seg Neutrophils % 65.8 Lymphocytes % 20.9 Monocytes % 12.1 Eosinophils % 0.9 Basophils % 0.3 Absolute Neutrophils 1.6 L Absolute Lymphocytes 0.5 Absolute Monocytes 0.3 Absolute Eosinophils 0.0 Absolute Basophils 0.0 Sodium Potassium Chloride Carbon Dioxide Anion Gap BUN Creatinine Est GFR ( Amer) Est GFR (Non-Af Amer) Glucose Calcium Iron 18.0 L TIBC 307 % Saturation 6 Ferritin 89.70 Vitamin B12 452.0 Folate 6.69 Blood Type O POSITIVE Antibody Screen NEGATIVE 09/27/17 03:15 WBC RBC Hgb Hct MCV MCH MCHC RDW Plt Count Seg Neutrophils % Lymphocytes % Monocytes % Eosinophils % Basophils % Absolute Neutrophils Absolute Lymphocytes Absolute Monocytes Absolute Eosinophils Absolute Basophils Sodium 141.0 Potassium 3.9 Chloride 106 Carbon Dioxide 21 L Anion Gap 14 BUN 15 Creatinine 1.29 H Est GFR ( Amer) > 60 Est GFR (Non-Af Amer) 55 L Glucose 103 Calcium 8.5 Iron TIBC % Saturation Ferritin Vitamin B12 Folate Blood Type Antibody Screen Plan Discharge Plan: Discharge home; follow-up with hematology and GI Time Spent: Greater than 30 Minutes
== END 2017-09-27 13:31 | disposition home or self-care (01) | DRG 683 ==
LOC: ER 00:32 → EH 03:49 → OBSVTOIN 03:49 → EH 08:49 → 4S 16:46
PROVIDERS: ADMIT Internal Medicine; ATTEND Internal Medicine
PROC: 30233N1 Transfusion of Nonautologous Red Blood Cells into Peripheral Vein, Percutaneous Approach (ICD-10-PCS; principal; 2017-09-26)
DX: N17.9 Acute kidney failure, unspecified (principal); K51.90 Ulcerative colitis, unspecified, without complications; Z68.42 Body mass index [BMI] 45.0-49.9, adult; E87.2 Acidosis; E78.00 Pure hypercholesterolemia, unspecified; D63.1 Anemia in chronic kidney disease; I12.9 Hypertensive chronic kidney disease with stage 1 through stage 4 chronic kidney disease, or unspecified chronic kidney disease; N18.3 Chronic kidney disease, stage 3 (moderate); I95.2 Hypotension due to drugs; T50.4X5A Adverse effect of drugs affecting uric acid metabolism, initial encounter; C61 Malignant neoplasm of prostate; E66.01 Morbid (severe) obesity due to excess calories; Y92.9 Unspecified place or not applicable; I25.2 Old myocardial infarction; Z79.01 Long term (current) use of anticoagulants; Z79.899 Other long term (current) drug therapy
CPT/HCPCS: 36415; 36430; 80048; 80053; 82550; 82607; 82728; 82746; 83540; 83550; 84443; 85025; 85652; 86850; 86900; 86901; 86920; 93005; 93010; 96360; 96361; 96372; 99285; G0378; J1644; J1940; J7030; J7500; P9016

== ENCOUNTER 2017-10-07 12:09 | Emergency (ER) | payer MEDICARE, OTHER ==
--- NOTE | 2017-10-07 12:45 | ER Document Report ---
ED Medical Screen (RME) - General Chief Complaint: Chest Pain Stated Complaint: CHEST PAIN Time Seen by Provider: 10/07/17 12:43 Notes: Patient was sent from Dr. Melvin's office. He was sent for severe weakness and some right-sided chest pain. CBC was already performed at the doctor's office this morning. It is included on his chart. TRAVEL OUTSIDE OF THE [place] IN LAST 30 DAYS: No - Related Data Allergies/Adverse Reactions: Penicillins Allergy (Severe, Verified 09/25/17 00:33) facial swelling, redness Past Medical History - Social History Chew tobacco use (# tins/day): No Frequency of alcohol use: Rare Drug Abuse: None - Past Medical History Cardiac Medical History: Reports: Hx Heart Attack - 2010, Hx Hypercholesterolemia, Hx Hypertension Denies: Hx Coronary Artery Disease Pulmonary Medical History: Denies: Hx Asthma, Hx Bronchitis, Hx COPD, Hx Pneumonia Neurological Medical History: Denies: Hx Cerebrovascular Accident, Hx Seizures Renal/ Medical History: Denies: Hx Peritoneal Dialysis GI Medical History: Reports: Hx Ulcerative Colitis Musculoskeltal Medical History: Denies Hx Arthritis Psychiatric Medical History: Reports: Hx Depression Infectious Medical History: Past Surgical History: Reports: Hx Cardiac Surgery - StentComment Only: Hx Open Heart Surgery - Cath 05/15/22 - 3 stents - Immunizations Hx Diphtheria, Pertussis, Tetanus Vaccination: Yes History of Influenza Vaccine for 05/2017 - 10/2017 Season: Yes Influenza Administration Date for 05/2017 - 10/2017 Season: 05/26/17 Physical Exam - Vital signs Vitals: Temp Pulse Resp BP Pulse Ox 98.6 F 86 22 H 101/46 L 95 10/07/17 12:18 10/07/17 12:18 10/07/17 12:18 10/07/17 12:18 10/07/17 12:18 Course - Vital Signs Vital signs: Temp Pulse Resp BP Pulse Ox 98.6 F 86 22 H 101/46 L 95 10/07/17 12:18 10/07/17 12:18 10/07/17 12:18 10/07/17 12:18 10/07/17 12:18
--- NOTE | 2017-10-07 13:53 | RADIOLOGY REPORT (SQ) ---
EXAM DESCRIPTION: CHEST PA/LAT COMPLETED DATE/TIME: 10/07/2017 1:22 pm REASON FOR STUDY: weakness/sob COMPARISON: 04/03/2016 and 03/27/2016 EXAM PARAMETERS: NUMBER OF VIEWS: two views TECHNIQUE: Digital Frontal and Lateral radiographic views of the chest acquired. RADIATION DOSE: NA LIMITATIONS: none FINDINGS: LUNGS AND PLEURA: Patchy atelectatic basilar markings. No consolidation or pleural effusi on. MEDIASTINUM AND HILAR STRUCTURES: Stable appearance. HEART AND VASCULAR STRUCTURES: Cardiomegaly stable. No overt CHF. BONES: No acute findings. HARDWARE: Port on the right. OTHER: No other significant finding. IMPRESSION: Stable cardiomegaly. Patchy atelectatic basilar markings. TECHNICAL DOCUMENTATION: JOB ID: [id number] [employer]- All Rights Reserved
[2017-10-07 14:27] LABS: APPEARANCE,URINE CLOUDY; BILIRUBIN,URINE NEGATIVE (NEGATIVE); COLOR,URINE AMBER; GLUCOSE, URINE NEGATIVE (NEGATIVE); KETONES,URINE NEGATIVE (NEGATIVE); LEUKOCYTE ESTERASE,URINE NEGATIVE (NEGATIVE); NITRITE,URINE NEGATIVE (NEGATIVE); PROTEIN,URINE 100 mg/dL (NEGATIVE); URINE SPECIFIC GRAVITY 1.023
--- NOTE | 2017-10-07 15:14 | EKG REPORT ---
SEVERITY:- ABNORMAL ECG - SINUS RHYTHM MULTIPLE ATRIAL PREMATURE COMPLEXES RIGHT BUNDLE BRANCH BLOCK : Confirmed by: Marina George 07-Oct-2017 15:13:57
[2017-10-07 15:29] LABS: ALANINE AMINOTRANSFERASE 116 U/L (21-72); ALBUMIN 3.3 g/dL (3.5-5.0); ALKALINE PHOSPHATASE 114 U/L (38-126); ANION GAP 11 (5-19); ASPARTATE AMINO TRANSFERASE 144 U/L (17-59); BILIRUBIN,DIRECT 0.5 mg/dL (0.0-0.4); BILIRUBIN,TOTAL 0.6 mg/dL (0.2-1.3); BLOOD UREA NITROGEN 30 mg/dL (7-20); CALCIUM 7.9 mg/dL (8.4-10.2); CARBON DIOXIDE 23 mmol/L (22-30); CHLORIDE 104 mmol/L (98-107); GLUCOSE 112 mg/dL (75-110); POTASSIUM 3.8 mmol/L (3.6-5.0); SODIUM 137.5 mmol/L (137-145); TOTAL PROTEIN 7.1 g/dL (6.3-8.2)
--- NOTE | 2017-10-07 16:38 | ER Document Report ---
ED General - General Chief Complaint: Chest Pain Stated Complaint: CHEST PAIN Time Seen by Provider: 10/07/17 12:43 Notes: Patient is a 72-year-old male, past medical history anemia, ulcerative colitis, CAD with stents placed multiple years ago in [place], CKD, prostate cancer, presents after an episode of right shoulder and upper chest pain that he has had multiple times in the past. He was in the parking lot of his oncologist's office earlier today when the pain started and he was having difficulty getting out of the car. He says the pain feels like spasming and usually it goes away on its own. Patient is currently asymptomatic. Denies shortness of breath, numbness, tingling, leg swelling, abdominal pain, back pain, nausea, vomiting, fevers, cough or injury. TRAVEL OUTSIDE OF THE [place] IN LAST 30 DAYS: No - Related Data Allergies/Adverse Reactions: Penicillins Allergy (Severe, Verified 09/25/17 00:33) facial swelling, redness Past Medical History - General Information source: Patient - Social History Smoking Status: Former Smoker Chew tobacco use (# tins/day): No Frequency of alcohol use: Rare Drug Abuse: None Family History: DM Patient has suicidal ideation: No Patient has homicidal ideation: No - Past Medical History Cardiac Medical History: Reports: Hx Heart Attack - 2010, Hx Hypercholesterolemia, Hx Hypertension Denies: Hx Coronary Artery Disease Pulmonary Medical History: Denies: Hx Asthma, Hx Bronchitis, Hx COPD, Hx Pneumonia Neurological Medical History: Denies: Hx Cerebrovascular Accident, Hx Seizures Renal/ Medical History: Denies: Hx Peritoneal Dialysis GI Medical History: Reports: Hx Ulcerative Colitis Musculoskeltal Medical History: Denies Hx Arthritis Psychiatric Medical History: Reports: Hx Depression Infectious Medical History: Past Surgical History: Reports: Hx Cardiac Surgery - StentComment Only: Hx Open Heart Surgery - Cath 05/15/22 - 3 stents - Immunizations Hx Diphtheria, Pertussis, Tetanus Vaccination: Yes Hx Pneumococcal Vaccination: 08/26/12 Review of Systems - Review of Systems Notes: REVIEW OF SYSTEMS: CONSTITUTIONAL: -fevers, -chills EENT: -eye pain, -difficulty swallowing, -nasal congestion CARDIOVASCULAR: +right upper chest pain, -syncope. RESPIRATORY: -cough, -SOB GASTROINTESTINAL: -abdominal pain, -nausea, -vomiting, -diarrhea GENITOURINARY: -dysuria, -hematuria MUSCULOSKELETAL: -back pain, -neck pain SKIN: -rash or skin lesions. HEMATOLOGIC: -easy bruising or bleeding. LYMPHATIC: -swollen, enlarged glands. NEUROLOGICAL: -altered mental status or loss of consciousness, -headache, - neurologic symptoms PSYCHIATRIC: -anxiety, -depression. ALL OTHER SYSTEMS REVIEWED AND NEGATIVE. Physical Exam - Vital signs Vitals: Temp Pulse Resp BP Pulse Ox 98.6 F 86 22 H 101/46 L 95 10/07/17 12:18 10/07/17 12:18 10/07/17 12:18 10/07/17 12:18 10/07/17 12:18 - Notes Notes: PHYSICAL EXAMINATION: GENERAL: Well-appearing, well-nourished and in no acute distress. HEAD: Atraumatic, normocephalic. EYES: Pupils equal round and reactive to light, extraocular movements intact, sclera anicteric, conjunctiva are normal. ENT: nares patent, oropharynx clear without exudates. Moist mucous membranes. NECK: Normal range of motion, supple without lymphadenopathy LUNGS: Breath sounds clear to auscultation bilaterally and equal. No wheezes rales or rhonchi. HEART: Regular rate and rhythm without murmurs. Tenderness over right upper chest wall. ABDOMEN: Soft, nontender, normoactive bowel sounds. No guarding, no rebound. No masses appreciated. EXTREMITIES: Normal range of motion, no pitting or edema. No cyanosis. NEUROLOGICAL: Cranial nerves grossly intact. Normal speech, normal gait. Normal sensory and motor exams. PSYCH: Normal mood, normal affect. SKIN: Warm, Dry, normal turgor, no rashes or lesions noted. Course - Re-evaluation Re-evalutation: Pt appears well and is in no distress. He is completely asymptomatic upon my evaluation. EKG does not show any acute abnormalities. 2 sets of troponins remain unchanged. Pt's chest pain is atypical in nature. His HEART score is 3. Chest x-ray does not show any abnormalities. Labs are unremarkable, other than some elevation of his LFTs. An ultrasound was performed and it showed evidence of fatty liver disease, but no other acute abnormalities. Patient symptoms are atypical for aortic dissection or PE at this time. Offered patient admission for further evaluation of this chest pain, but since he feels much better, he would like to follow-up as an outpatient with his PMD and [employer]. Given very strict return precautions and he understands. - Vital Signs Vital signs: Temp Pulse Resp BP Pulse Ox 98.6 F 86 14 106/45 L 97 10/07/17 12:18 10/07/17 12:18 10/07/17 18:01 10/07/17 18:01 10/07/17 18:01 - Laboratory Result Diagrams: 10/07/17 14:45 Laboratory results interpreted by me: 10/07/17 10/07/17 13:40 14:45 BUN 30 H Creatinine 2.01 H Est GFR ( Amer) 40 L Est GFR (Non-Af Amer) 33 L Glucose 112 H Calcium 7.9 L Direct Bilirubin 0.5 H AST 144 H ALT 116 H Albumin 3.3 L Urine Protein 100 H Urine Blood SMALL H Urine Urobilinogen 2.0 H - Diagnostic Test Radiology reviewed: Image reviewed, Reports reviewed Radiology results interpreted by me: CXR: Stable cardiomegaly. Patchy atelectatic basilar markings. RUQ US: fatty liver disease - EKG Interpretation by Me EKG shows normal: Sinus rhythm, [place], Intervals, QRS Complexes, ST-T Waves Discharge - Discharge Clinical Impression: Atypical chest pain, Elevated LFTs, Non-alcoholic fatty liver disease Condition: Stable Disposition: HOME, SELF-CARE Additional Instructions: Follow-up with your GI doctor to have your liver enzymes rechecked as they were elevated today. Follow-up with your primary care physician and pbx mechanic for further evaluation of your chest pain. Return to the ER if you have any worsening symptoms or any other concerns. CHEST PAIN OF UNCLEAR CAUSE: The exact cause of your chest pain isn't clear. Fortunately, there is no evidence of a dangerous medical condition. Further testing may be required to find the source of the pain. Most often, we find that this pain is coming from the chest wall -- the muscles or rib joints in the chest. But chest pain can come from the lung and lung lining, the esophagus, the heart valves or heart lining, and even the stomach or gallbladder. Rest. Eat lightly until the pain is gone. We may prescribe medicine for pain and inflammation. You should call the physician immediately if the pain radiates to the shoulder, jaw or arms; if you start to run a fever or develop a cough; or if you develop shortness of breath, or other new or alarming symptoms. NORMAL EXAM AND WORKUP: At this time, your examination and workup show no significant abnormality. No significant abnormal physical findings were noted. All laboratory, EKG, and imaging (x-ray, CT scans, ultrasound) studies that were ordered show no significant abnormality. Although your examination and all studies that were ordered showed no significant abnormal finding, there are no examinations and no studies that are 100% accurate. There is always the possibility that some abnormality could exist and not be detected with physical examination or within the limits and capabilities of laboratory and other studies. You should return or follow up as you were instructed on your visit today for further evaluation if your symptoms do not resolve. CHEST WALL PAIN: Your chest pain may be coming from the chest wall. This is often caused by straining the muscles or joints in the chest during physical activity, direct trauma, coughing, or vigorous vomiting. Persons with arthritis are especially prone to this type of pain, due to inflammation of the cartilage joints near the breast bone. Occasionally, no cause can be found. Rest from strenuous physical activity. This kind of chest pain is usually made worse by movement of the chest. Depending on the symptoms, we may prescribe medicine for pain, muscle relaxation, and antiinflammatory effects. If the pain is new, and seems to be due to muscle strain, cold packs can help. Otherwise, apply gentle warmth to the painful area for 15 minutes every hour or two. You should call contact the doctor immediately if things change. Further evaluation is needed if you develop a fever or cough, if the nature of the pain changes, or if you become short of breath. ACID REFLUX DISEASE (GERD): Gastro-Esophageal Reflux Disease (GERD) is caused by stomach acid refluxing back up into the esophagus. The valve at the end of the esophagus may be weak. This is common in persons with a hiatal hernia. GERD symptoms can include indigestion, chest pain, heartburn, or food "sticking." Certain foods, alcohol, and aspirin can make GERD worse. Treatment depends on the severity. Usually, antacids or acid-suppressing medicines are used. When the esophagus is acutely inflamed, the physician will often prescribe membrane-protective drugs such as Carafate. Some patients benefit from medication such as Reglan that tightens the valve at the top of the stomach. Avoid those foods that bring on your symptoms. For many people, these foods are coffee, chocolate, onions, garlic, and carbonated drinks. Don't use alcohol, aspirin, caffeine, or tobacco. Don't eat late at night -- within 4 hours of bedtime. Don't over-eat. If necessary, elevate the head of your bed about 4 inches so that stomach acid will not roll up into your esophagus. Call the doctor if you develop severe chest pain, inability to swallow fluids, fever, or worsening symptoms. FOLLOW-UP CARE: If you have been referred to a physician for follow-up care, call the physician s office for an appointment as you were instructed or within the next two days. If you experience worsening or a significant change in your symptoms, notify the physician immediately or return to the Emergency Department at any time for re-evaluation. Referrals: ALEISHA FONG MD [Primary Care Provider] - Follow up as needed MINNIE SEGUNDO MD [ACTIVE STAFF] - Follow up as needed
--- NOTE | 2017-10-07 18:20 | RADIOLOGY REPORT (SQ) ---
EXAM DESCRIPTION: U/S ABDOMEN LIMITED W/O DOP COMPLETED DATE/TIME: 10/07/2017 6:03 pm REASON FOR STUDY: elevated LFTs, RUQ tenderness COMPARISON: None. TECHNIQUE: Dynamic and static grayscale images acquired of the right upper quadrant and recorded on PACS. Additional selected color Doppler and spectral images recorded. LIMITATIONS: Study severely limited due to acoustical interference from fat or from air in the bowel . FINDINGS: PANCREAS: Not visualized. LIVER: Echotexture is coarse with increased echogenicity consistent with fatty infiltration. No mass es. LIVER VASCULATURE: Normal directional flow of the main portal vein and hepatic veins. GALLBLADDER: No stones. Normal wall thickness. No pericholecystic fluid. ULTRASOUND-DETECTED GARCIA'S SIGN: Negative. INTRAHEPATIC DUCTS AND COMMON DUCT: CBD and intrahepatic ducts normal caliber. No filling defects. INFERIOR VENA CAVA: Normal flow. AORTA: No aneurysm. RIGHT KIDNEY: Normal size. Normal echogenicity. No solid or suspicious masses. No hydronephrosis. No calcifications. PERITONEAL CAVITY AND RIGHT PLEURAL SPACE: No ascites or effusions. OTHER: No other significant finding. IMPRESSION: FATTY LIVER. PANCREAS COMPLETELY OBSCURED. OTHERWISE NORMAL RIGHT UPPER QUADRANT ULTRASO UND. TECHNICAL DOCUMENTATION: JOB ID: [id number] [employer]- All Rights Reserved
[2017-10-07 20:10] VITALS: BP 120/40
== END 2017-10-07 20:10 | disposition home or self-care (01) ==
LOC: ER 12:09
DX: R07.9 Chest pain, unspecified (principal); R79.89 Other specified abnormal findings of blood chemistry; K76.0 Fatty (change of) liver, not elsewhere classified; D64.9 Anemia, unspecified; I25.10 Atherosclerotic heart disease of native coronary artery without angina pectoris; M25.511 Pain in right shoulder; Z87.891 Personal history of nicotine dependence
CPT/HCPCS: 36415; 36591; 71046; 76705; 80053; 81001; 84484; 93005; 93010; 99285

== ENCOUNTER 2017-12-17 07:59 | Outpatient (CLI) | payer MEDICARE, OTHER ==
[~2017-12-17 07:59] MED LIST: ACETAMINOPHEN 325 MG TABLET PO PRN; DIPHENHYDRAMINE HCL 25 MG CAPSULE PO PRN; FUROSEMIDE INJ/PF 20 MG/2 ML SDV IV PRN
[2017-12-17 08:29] LABS: HEMATOCRIT 26.1 % (37.9-51.0); HEMOGLOBIN 8.9 g/dL (13.5-17.0); MEAN CORPUSCULAR HEMOGLOBIN 35.8 pg (27.0-33.4); MEAN CORPUSCULAR HGB CONC 34.1 g/dL (32.0-36.0); MEAN CORPUSCULAR VOLUME 105 fl (80-97); PLATELET COUNT 180 10^3/uL (150-450); RED BLOOD COUNT 2.48 10^6/uL (4.35-5.55); RED CELL DISTRIBUTION WIDTH 20.2 % (11.5-14.0); WHITE BLOOD COUNT 5.1 10^3/uL (4.0-10.5)
[2017-12-17] MEDS ORDERED: NORMAL SALINE 250 ML IV PRN (08:59)
[2017-12-17 15:43] VITALS: BP 112/59
== END 2017-12-17 15:15 | disposition home or self-care (01) ==
LOC: II 07:59 → 5TH 08:05 → II 15:15
PROVIDERS: ATTEND Internal Medicine Hematology & Oncology
PROC: 30233N1 Transfusion of Nonautologous Red Blood Cells into Peripheral Vein, Percutaneous Approach (ICD-10-PCS; principal; 2017-12-17)
DX: D50.0 Iron deficiency anemia secondary to blood loss (chronic) (principal)
CPT/HCPCS: 86900; 86901; 36415; 36430; 86850; 86920; P9016; A9270 ×2

== ENCOUNTER 2017-12-23 16:07 | Emergency (ER) | payer MEDICARE, OTHER ==
[2017-12-23] MEDS ORDERED: NORMAL SALINE 1000 ML 1,000 ML IV ONE (17:16)
--- NOTE | 2017-12-23 17:18 | ER Document Report ---
ED Medical Screen (RME) - General Chief Complaint: Low Blood Pressure Stated Complaint: BLOOD PRESSURE ISSUE Time Seen by Provider: 12/23/17 17:15 Notes: Patient states that his home health nurse came out today and his blood pressure is low. He states he went to his doctor's office and was 72 systolic. He was feeling lightheaded and dizzy. He states he does take a blood pressure medication and there has been no recent changes of this. He states he is also been anemic and recently required 2 transfusions. He states currently still feels slightly lightheaded. No pain. TRAVEL OUTSIDE OF THE [place] IN LAST 30 DAYS: No - Related Data Allergies/Adverse Reactions: No Known Allergies Allergy (Unverified 12/23/17 16:42) Past Medical History - Social History Chew tobacco use (# tins/day): No Frequency of alcohol use: None Drug Abuse: None - Past Medical History Cardiac Medical History: Reports: Hx Heart Attack - 2010, Hx Hypercholesterolemia, Hx Hypertension Denies: Hx Coronary Artery Disease Pulmonary Medical History: Denies: Hx Asthma, Hx Bronchitis, Hx COPD, Hx Pneumonia Neurological Medical History: Denies: Hx Cerebrovascular Accident, Hx Seizures Renal/ Medical History: Denies: Hx Peritoneal Dialysis GI Medical History: Reports: Hx Ulcerative Colitis Musculoskeltal Medical History: Denies Hx Arthritis Psychiatric Medical History: Reports: Hx Depression Infectious Medical History: Past Surgical History: Reports: Hx Cardiac Surgery - StentComment Only: Hx Open Heart Surgery - Cath 05/15/22 - 3 stents - Immunizations Hx Diphtheria, Pertussis, Tetanus Vaccination: Yes History of Influenza Vaccine for 05/2017 - 10/2017 Season: Yes Influenza Administration Date for 05/2017 - 10/2017 Season: 05/26/17 Physical Exam - Vital signs Vitals: Temp Pulse Resp BP Pulse Ox 97.7 F 60 24 H 102/74 100 12/23/17 16:15 12/23/17 16:15 12/23/17 16:15 12/23/17 16:15 12/23/17 16:15 Course - Vital Signs Vital signs: Temp Pulse Resp BP Pulse Ox 97.7 F 60 24 H 102/74 100 12/23/17 16:15 12/23/17 16:15 12/23/17 16:15 12/23/17 16:15 12/23/17 16:15 Doctor's Discharge - Discharge Referrals: ALEISHA FONG MD [Primary Care Provider] - Follow up as needed
[2017-12-23 18:11] LABS: ABSOLUTE EOSINOPHILS # (AUTO) 0.1 10^3/uL (0.0-0.6); ABSOLUTE LYMPHOCYTES (AUTO) 1.7 10^3/uL (0.5-4.7); ABSOLUTE MONOCYTES (AUTO) 0.3 10^3/uL (0.1-1.4); ABSOLUTE NEUT (AUTO) 4.8 10^3/uL (1.7-8.2); BASOPHILS % (AUTO) 0.6 % (0-2); EOSINOPHILS % (AUTO) 1.9 % (0-6); HEMATOCRIT 32.1 % (37.9-51.0); HEMOGLOBIN 10.8 g/dL (13.5-17.0); LYMPHOCYTES % (AUTO) 24.6 % (13-45); MEAN CORPUSCULAR HEMOGLOBIN 34.6 pg (27.0-33.4); MEAN CORPUSCULAR HGB CONC 33.7 g/dL (32.0-36.0); MEAN CORPUSCULAR VOLUME 103 fl (80-97); MONOCYTES % (AUTO) 4.8 % (3-13); PLATELET COUNT 189 10^3/uL (150-450); RED BLOOD COUNT 3.13 10^6/uL (4.35-5.55); RED CELL DISTRIBUTION WIDTH 21.2 % (11.5-14.0); SEGMENTED NEUTROPHILS % (AUTO) 68.1 % (42-78); TOTAL CELLS COUNTED % (AUTO) 100 %; WHITE BLOOD COUNT 7.1 10^3/uL (4.0-10.5)
[2017-12-23 18:35] LABS: ALANINE AMINOTRANSFERASE 28 U/L (21-72); ALBUMIN 4.4 g/dL (3.5-5.0); ALKALINE PHOSPHATASE 63 U/L (38-126); ANION GAP 14 (5-19); ASPARTATE AMINO TRANSFERASE 38 U/L (17-59); BILIRUBIN,DIRECT 0.4 mg/dL (0.0-0.4); BILIRUBIN,TOTAL 0.5 mg/dL (0.2-1.3); BLOOD UREA NITROGEN 45 mg/dL (7-20); CALCIUM 10.1 mg/dL (8.4-10.2); CARBON DIOXIDE 24 mmol/L (22-30); CHLORIDE 105 mmol/L (98-107); GLUCOSE 96 mg/dL (75-110); SODIUM 143.4 mmol/L (137-145); TOTAL PROTEIN 8.6 g/dL (6.3-8.2)
--- NOTE | 2017-12-23 20:03 | ER Document Report ---
ED General - General Chief Complaint: Low Blood Pressure Stated Complaint: BLOOD PRESSURE ISSUE Time Seen by Provider: 12/23/17 17:15 TRAVEL OUTSIDE OF THE [place] IN LAST 30 DAYS: No - HPI Patient complains to provider of: Low blood pressure Notes: Patient coming in for evaluation of low blood pressure. 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 Patient states otherwise feeling fine 2 readings in the PCPs office with first 1 showing systolic of 90 seconds showing systolic of 70 therefore patient was urged to come into the ER. Patient states slight lightheaded dizziness however does not have any other complaints. Denies fevers chills nausea vomiting diarrhea denies any chest pain abdominal pain. Patient resting comfortably upon my evaluation. Patient states that he thinks he is drinking plenty of fluids continues to be on 2 blood pressure medications Cardura and lisinopril despite losing 70 pounds since having his surgery. - Related Data Allergies/Adverse Reactions: No Known Allergies Allergy (Unverified 12/23/17 16:42) Past Medical History - Social History Smoking Status: Never Smoker Chew tobacco use (# tins/day): No Frequency of alcohol use: None Drug Abuse: None Family History: DM Patient has suicidal ideation: No Patient has homicidal ideation: No - Past Medical History Cardiac Medical History: Reports: Hx Heart Attack - 2010, Hx Hypercholesterolemia, Hx Hypertension Denies: Hx Coronary Artery Disease Pulmonary Medical History: Denies: Hx Asthma, Hx Bronchitis, Hx COPD, Hx Pneumonia Neurological Medical History: Denies: Hx Cerebrovascular Accident, Hx Seizures Renal/ Medical History: Denies: Hx Peritoneal Dialysis GI Medical History: Reports: Hx Ulcerative Colitis Musculoskeltal Medical History: Denies Hx Arthritis Psychiatric Medical History: Reports: Hx Depression Infectious Medical History: Past Surgical History: Reports: Hx Cardiac Surgery - StentComment Only: Hx Open Heart Surgery - Cath 05/15/22 - 3 stents - Immunizations Hx Diphtheria, Pertussis, Tetanus Vaccination: Yes Hx Pneumococcal Vaccination: 08/26/12 Review of Systems - Review of Systems Constitutional: Other - Low blood pressure EENT: No symptoms reported Cardiovascular: No symptoms reported Respiratory: No symptoms reported Gastrointestinal: No symptoms reported Genitourinary: No symptoms reported Male Genitourinary: No symptoms reported Musculoskeletal: No symptoms reported Skin: No symptoms reported Hematologic/Lymphatic: No symptoms reported Neurological/Psychological: No symptoms reported -: Yes All other systems reviewed and negative Physical Exam - Vital signs Vitals: Temp Pulse Resp BP Pulse Ox 97.7 F 60 24 H 102/74 100 12/23/17 16:15 12/23/17 16:15 12/23/17 16:15 12/23/17 16:15 12/23/17 16:15 Interpretation: Normal - General General appearance: Appears well, Alert - HEENT Head: Normocephalic, Atraumatic Eyes: Normal Pupils: PERRL - Respiratory Respiratory status: No respiratory distress Chest status: Nontender Breath sounds: Normal Chest palpation: Normal - Cardiovascular Rhythm: Regular Heart sounds: Normal auscultation Murmur: No - Abdominal Inspection: Normal Distension: No distension Bowel sounds: Normal Tenderness: Nontender Organomegaly: No organomegaly - Back Back: Normal, Nontender - Extremities General upper extremity: Normal inspection, Nontender, Normal color, Normal ROM , Normal temperature General lower extremity: Normal inspection, Nontender, Normal color, Normal ROM , Normal temperature, Normal weight bearing. No: Shawnee's sign - Neurological Neuro grossly intact: Yes Cognition: Normal Orientation: AAOx4 Terrance Coma Scale Eye Opening: Spontaneous Terrance Coma Scale Verbal: Oriented Alb[place] Coma Scale Motor: Obeys Commands Alb[place] Coma Scale Total: 15 Speech: Normal Motor strength normal: LUE, RUE, LLE, RLE Sensory: Normal - Psychological Associated symptoms: Normal affect, Normal mood - Skin Skin Temperature: Warm Skin Moisture: Dry Skin Color: Normal Course - Re-evaluation Re-evalutation: 12/23/17 23:05 Patient's blood pressure remained with systolic over 100 during his visit here in the ER. Improved after IV fluids. Possible dehydration. The reviewed patient's laboratory studies showed improvement of his anemia and more likely baseline of his creatinine. Patient states understanding drink more water did splinted patient that I would hold off on his lisinopril dose tonight and discuss with his PCP about possibly changing his hypertensive medications. Patient states understanding - Vital Signs Vital signs: Temp Pulse Resp BP Pulse Ox 97.8 F 60 19 113/72 95 12/23/17 20:46 12/23/17 16:15 12/23/17 20:40 12/23/17 20:40 12/23/17 20:40 - Laboratory Result Diagrams: 12/23/17 17:55 12/23/17 17:55 Laboratory results interpreted by me: 12/23/17 12/23/17 17:55 17:55 RBC 3.13 L Hgb 10.8 L Hct 32.1 L MCV 103 H MCH 34.6 H RDW 21.2 H BUN 45 H Creatinine 1.87 H Est GFR ( Amer) 43 L Est GFR (Non-Af Amer) 36 L Total Protein 8.6 H Discharge - Discharge Clinical Impression: Transient hypotension, Dehydration Condition: Good Disposition: HOME, SELF-CARE Instructions: Dehydration (OM) Additional Instructions: Your blood pressure has been normal while here in ER. I do not have exact reason for having low readings in your primary care physician's office. With her recent surgery and weight loss I would recommend discussing with your primary care physician about discontinuing or changing some of your blood pressure medications. Would also recommend to make sure that you drink plenty of fluids to stay hydrated return to the ER for any concerns Referrals: ALEISHA FONG MD [Primary Care Provider] - Follow up as needed
[2017-12-23 20:46] VITALS: BP 113/72
--- NOTE | 2017-12-23 22:26 | EKG REPORT ---
SEVERITY:- ABNORMAL ECG - A SENSED VENTRICULAR-PACED RHYTHM : Confirmed by: Marina George 23-Dec-2017 22:25:01
== END 2017-12-23 20:47 | disposition home or self-care (01) ==
LOC: ER 16:07
DX: I95.9 Hypotension, unspecified (principal); E86.0 Dehydration; E78.00 Pure hypercholesterolemia, unspecified; Z95.2 Presence of prosthetic heart valve; I10 Essential (primary) hypertension; I25.2 Old myocardial infarction
CPT/HCPCS: 36415; 80053; 84484; 85025; 93005; 93010; 99285

== ENCOUNTER 2018-01-26 11:28 | Emergency (ER) | payer MEDICARE, OTHER ==
[2018-01-26 12:00] LABS: ABSOLUTE EOSINOPHILS # (AUTO) 0.1 10^3/uL (0.0-0.6); ABSOLUTE LYMPHOCYTES (AUTO) 1.6 10^3/uL (0.5-4.7); ABSOLUTE MONOCYTES (AUTO) 0.6 10^3/uL (0.1-1.4); ABSOLUTE NEUT (AUTO) 7.4 10^3/uL (1.7-8.2); BASOPHILS % (AUTO) 0.4 % (0-2); HEMATOCRIT 22.4 % (37.9-51.0); LYMPHOCYTES % (AUTO) 16.2 % (13-45); MEAN CORPUSCULAR HGB CONC 34.1 g/dL (32.0-36.0); MEAN CORPUSCULAR VOLUME 97 fl (80-97); MONOCYTES % (AUTO) 5.9 % (3-13); PLATELET COUNT 262 10^3/uL (150-450); RED BLOOD COUNT 2.31 10^6/uL (4.35-5.55); RED CELL DISTRIBUTION WIDTH 20.4 % (11.5-14.0); SEGMENTED NEUTROPHILS % (AUTO) 76.5 % (42-78); TOTAL CELLS COUNTED % (AUTO) 100 %; WHITE BLOOD COUNT 9.7 10^3/uL (4.0-10.5)
[2018-01-26] MEDS: NORMAL SALINE 1000 ML 1,000 ML IV PRN ×2 (12:05→12:57)
[2018-01-26 12:06] LABS: HEMOGLOBIN 7.6 g/dL (13.5-17.0); INTERNATIONAL RATION (INR) 1.45; PROTHROMBIN TIME 18.4 SEC (11.4-15.4)
[2018-01-26 12:07] LABS: VENOUS BLOOD BASE EXCESS -2.7 mmol/L; VENOUS BLOOD HCO3 21.7 mmol/L (20-32); VENOUS BLOOD PCO2 35.3 mmHg (35-63); VENOUS BLOOD PH 7.41 (7.30-7.42)
[2018-01-26 12:18] LABS: ALANINE AMINOTRANSFERASE 27 U/L (21-72); ALBUMIN 3.6 g/dL (3.5-5.0); ALKALINE PHOSPHATASE 61 U/L (38-126); ANION GAP 15 (5-19); ASPARTATE AMINO TRANSFERASE 19 U/L (17-59); BILIRUBIN,DIRECT 0.2 mg/dL (0.0-0.4); BILIRUBIN,TOTAL 0.3 mg/dL (0.2-1.3); BLOOD UREA NITROGEN 67 mg/dL (7-20); CALCIUM 9.7 mg/dL (8.4-10.2); CARBON DIOXIDE 22 mmol/L (22-30); CHLORIDE 104 mmol/L (98-107); GLUCOSE 107 mg/dL (75-110); LIPASE 142.9 U/L (23-300); POTASSIUM 5.1 mmol/L (3.6-5.0); SODIUM 140.9 mmol/L (137-145); TOTAL PROTEIN 6.7 g/dL (6.3-8.2)
[2018-01-26] MEDS ORDERED: NORMAL SALINE 250 ML IV PRN ×2 (12:19)
[2018-01-26] MEDS ORDERED: DEXTROSE 5%-WATER 250 ML with NOREPINEPHRINE BITARTRATE 4 MG IV PRN ×2 (12:57)
[2018-01-26] MEDS ORDERED: NOREPINEPHRINE BITARTRATE INJ/PF 4 MG/4 ML SDV IV ONE (13:00)
--- NOTE | 2018-01-26 13:14 | RADIOLOGY REPORT (SQ) ---
EXAM DESCRIPTION: CHEST SINGLE VIEW COMPLETED DATE/TIME: 01/26/2018 1:05 pm REASON FOR STUDY: hypotension recent coloectomy, CL placement COMPARISON: 11/04/2017 EXAM PARAMETERS: NUMBER OF VIEWS: One view. TECHNIQUE: Single frontal radiographic view of the chest acquired. RADIATION DOSE: NA LIMITATIONS: None. FINDINGS: LUNGS AND PLEURA: No new opacities, masses or pneumothorax. No pleural effusion. MEDIASTINUM AND HILAR STRUCTURES: No masses. Contour normal. HEART AND VASCULAR STRUCTURES: Heart stable in size. Normal vasculature. BONES: No acute findings. HARDWARE: Right IJ venous catheter terminates within the lower SVC. Right-sided cardiac pacer. Pace r leads left chest. OTHER: No other significant finding. IMPRESSION: NO ACUTE RADIOGRAPHIC FINDING IN THE CHEST. SATISFACTORY PLACEMENT IJ VENOUS CATHETER W ITHOUT COMPLICATION. TECHNICAL DOCUMENTATION: JOB ID: [id number] [employer]- All Rights Reserved Reading location - IP/workstation name: [email or web address]
--- NOTE | 2018-01-26 13:37 | ER Document Report ---
ED General - General TRAVEL OUTSIDE OF THE [place].S. IN LAST 30 DAYS: No - HPI Patient complains to provider of: Low blood pressure lightheaded dizziness <CHANDA SAUCEDA - Last Filed: 01/26/18 15:17> <MANJINDER APPLE - Last Filed: 01/26/18 16:48> - General Chief Complaint: Low Blood Pressure Stated Complaint: BLOOD PRESSURE ISSUE Time Seen by Provider: 01/26/18 11:43 - HPI Notes: Patient coming in for low blood pressure lightheaded dizziness. Patient had a recent colectomy at [facility] patient now has a ileostomy in the right lower quadrant states output is increased along with changing color to black. Family at bedside states that he may have seen some blood upon changing the ileostomy the other day. Patient also has a history of coronary artery disease with a pacemaker and coronary artery stents placed in. Patient is also has a history of hypertension. Patient states he was compliant with his medications this morning taking his Cardura and also his metoprolol. Patient denies any fevers chills nausea or vomiting. Upon my evaluation patient was ashen and forrester with a blood pressure of systolic 60s-70s. Patient states he feels lightheaded and dizzy whenever he sits up or stands no trauma no abdominal pain (CHANDA SAUCEDA) - Related Data Allergies/Adverse Reactions: No Known Allergies Allergy (Verified 01/26/18 11:48) Past Medical History - Social History Smoking Status: Former Smoker Frequency of alcohol use: None Drug Abuse: None Family History: DM Patient has suicidal ideation: No Patient has homicidal ideation: No - Past Medical History Cardiac Medical History: Reports: Hx Heart Attack - 2010, Hx Hypercholesterolemia, Hx Hypertension Denies: Hx Coronary Artery Disease Pulmonary Medical History: Denies: Hx Asthma, Hx Bronchitis, Hx COPD, Hx Pneumonia Neurological Medical History: Denies: Hx Cerebrovascular Accident, Hx Seizures Renal/ Medical History: Denies: Hx Peritoneal Dialysis GI Medical History: Reports: Hx Ulcerative Colitis Musculoskeltal Medical History: Denies Hx Arthritis Psychiatric Medical History: Reports: Hx Depression Infectious Medical History: Past Surgical History: Reports: Hx Abdominal Surgery - colostomy placed, Hx Appendectomy, Hx Cardiac Surgery - pacemaker, Hx Open Heart Surgery - Cath - 3 stents - Immunizations Hx Diphtheria, Pertussis, Tetanus Vaccination: Yes Hx Pneumococcal Vaccination: 08/26/12 <CHANDA SAUCEDA - Last Filed: 01/26/18 15:17> Review of Systems - Review of Systems Constitutional: Malaise, Weakness, Other - [id number] EENT: No symptoms reported Cardiovascular: No symptoms reported Respiratory: No symptoms reported Gastrointestinal: No symptoms reported Genitourinary: No symptoms reported Male Genitourinary: No symptoms reported Musculoskeletal: No symptoms reported Skin: No symptoms reported Hematologic/Lymphatic: No symptoms reported -: Yes All other systems reviewed and negative <CHANDA SAUCEDA - Last Filed: 01/26/18 15:17> Physical Exam - Vital signs Interpretation: Hypotensive - General General appearance: Appears well, Alert - HEENT Head: Normocephalic, Atraumatic Eyes: Normal Pupils: PERRL - Respiratory Respiratory status: No respiratory distress Chest status: Nontender Breath sounds: Normal Chest palpation: Normal - Cardiovascular Rhythm: Regular Heart sounds: Normal auscultation Murmur: No - Abdominal Inspection: No: Normal - Ileostomy to the right lower quadrant with black fluid within the ileostomy. Midline nagi with surgical wound well-healed minimal bruising across the abdominal wall more likely from recent surgery Distension: No distension Bowel sounds: Normal Tenderness: Nontender Organomegaly: No organomegaly - Back Back: Normal, Nontender - Extremities General upper extremity: Normal inspection, Nontender, Normal color, Normal ROM , Normal temperature General lower extremity: Normal inspection, Nontender, Normal color, Normal ROM , Normal temperature, Normal weight bearing. No: Shawnee's sign - Neurological Neuro grossly intact: Yes Cognition: Normal Orientation: AAOx4 Sullivan Coma Scale Eye Opening: Spontaneous Terrance Coma Scale Verbal: Oriented Sullivan Coma Scale Motor: Obeys Commands Sullivan Coma Scale Total: 15 Speech: Normal Motor strength normal: LUE, RUE, LLE, RLE Sensory: Normal - Psychological Associated symptoms: Normal affect, Normal mood - Skin Skin Temperature: Warm Skin Moisture: Dry Skin Color: Normal <CHANDA SAUCEDA - Last Filed: 01/26/18 15:17> - Vital signs Vitals: Temp Pulse Resp BP 97.7 F 75 25 H 78/51 L 01/26/18 11:37 01/26/18 11:37 01/26/18 11:37 01/26/18 11:37 Course - Laboratory Result Diagrams: 01/26/18 11:38 01/26/18 11:38 <CHANDA SAUCEDA - Last Filed: 01/26/18 15:17> - Laboratory Result Diagrams: 01/26/18 11:38 01/26/18 11:38 <MANJINDER APPLE - Last Filed: 01/26/18 16:48> - Re-evaluation Re-evalutation: 01/26/18 13:37 Patient with a recent total colectomy had [facility] coming in today for generalized weakness and dizziness found to be significantly hypotensive. Blood pressures in the 60s and 70s upon his arrival here. 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 Patient is symptomatic heart rate remained stable after 2 L IV fluids minimal improvement of his blood pressure patient is difficult stick therefore decision was made to place a central line into the patient. Patient has had some black ostomy output which is changed from his recent discharge from [facility]. Patient hemoglobin is now 7.6 patient states that his hemoglobin was above 9 upon his discharge from [facility]. The black contents within the ostomy bag does return positive on Hemoccult card. We will get a CT scan of the abdomen and forth because the patient's BUN/ creatinine unable to provide any IV contrast. 2 units of blood of her been ordered for the patient. Patient also will likely need to be transferred to tertiary care facility is that we like GI especially here. 01/26/18 15:07 Updated patient that he will more likely be airlifted to [facility]. Patient is very excited about flying in a helicopter 01/26/18 15:18 (CHANDA SAUCEDA) 01/26/18 16:48 Patient reevaluated prior to transfer. Vital signs stable. Patient alert awake and in no acute distress. Patient stable for transfer. (MANJINDER APPLE) - Vital Signs Vital signs: Temp Pulse Resp BP Pulse Ox 98.1 F 75 17 105/58 L 96 01/26/18 15:41 01/26/18 11:37 01/26/18 15:41 01/26/18 15:41 01/26/18 15:41 - Laboratory Laboratory results interpreted by me: 01/26/18 01/26/18 01/26/18 11:38 11:38 11:38 RBC 2.31 L Hgb 7.6 L Hct 22.4 L RDW 20.4 H Retic Count (auto) PT 18.4 H Potassium 5.1 H BUN 67 H Creatinine 2.33 H Est GFR ( Amer) 34 L Est GFR (Non-Af Amer) 28 L Lactic Acid Urine Blood Crossmatch 01/26/18 01/26/18 01/26/18 11:38 11:38 11:38 RBC Hgb Hct RDW Retic Count (auto) 3.86 H PT Potassium BUN Creatinine Est GFR ( Amer) Est GFR (Non-Af Amer) Lactic Acid 2.3 H Urine Blood Crossmatch See Detail 01/26/18 14:44 RBC Hgb Hct RDW Retic Count (auto) PT Potassium BUN Creatinine Est GFR ( Amer) Est GFR (Non-Af Amer) Lactic Acid Urine Blood SMALL H Crossmatch Procedures - Central Line Right Internal jugular Consent obtained: Yes Central line pre-insertion: Sterile PPE donned, Chloraprep applied Central line lumen type: Triple Anesthetic type: 1% Lidocaine mL's of anesthesia: 3 Ultrasound guided: Yes CM at insertion site: 20 Line secured with sutures: Yes Central line post-insertion: Blood return from lumens, Biopatch applied, Sutured , Sterile dressing applied, Position confirmed w/ CXR Number of attempts: 1 Complications: No <CHANDA SAUCEDA - Last Filed: 01/26/18 15:17> Critical Care Note - Critical Care Note Total time excluding time spent on procedures (mins): 60 <CHANDA SAUCEDA - Last Filed: 01/26/18 15:17> <MANJINDER APPLE E - Last Filed: 01/26/18 16:48> - Critical Care Note Comments: Multiple evaluations due to the patient be hypotensive GI bleed requiring central line placement pressor therapy. Time excludes all procedures performed (CHANDA SAUCEDA) Discharge <CHANDA SAUCEDA - Last Filed: 01/26/18 15:17> <MANJINDER APPLE E - Last Filed: 01/26/18 16:48> - Discharge Clinical Impression: Anemia requiring transfusions, History of recent total colectomy Acute renal failure Qualifiers: Acute renal failure type: unspecified Qualified Code(s): N17.9 - Acute kidney failure, unspecified GI bleed Qualifiers: GI bleed type/associated pathology: unspecified gastrointestinal hemorrhage type Qualified Code(s): K92.2 - Gastrointestinal hemorrhage, unspecified Condition: Good Disposition: [place] Referrals: ALEISHA FONG MD [Primary Care Provider] - Follow up as needed
--- NOTE | 2018-01-26 13:57 | RADIOLOGY REPORT (SQ) ---
EXAM DESCRIPTION: CT ABD/PELVIS NO ORAL OR IV COMPLETED DATE/TIME: 01/26/2018 1:44 pm REASON FOR STUDY: hypotension recent colectomy COMPARISON: 02/20/2015 TECHNIQUE: CT scan of the abdomen and pelvis performed without intravenous or oral contrast. Images reviewed with lung, soft tissue, and bone windows. Reconstructed coronal and sagittal MPR images revi ewed. All images stored on PACS. All CT scanners at this facility use dose modulation, iterative reconstruction, and/or weight based d osing when appropriate to reduce radiation dose to as low as reasonably achievable (ALARA). [facility]: Dose Right [facility]: CareDose [facility]: Dose Right [facility]: Teradose 4D [facility]: Smart Technologies RADIATION DOSE: CT Rad equipment meets quality standard of care and radiation dose reduction techniq ues were employed. CTDIvol: 20.5 mGy. DLP: 1122 mGy-cm.mGy. LIMITATIONS: None. FINDINGS: LOWER CHEST: No significant findings. No nodules or infiltrates. NON-CONTRASTED LIVER, SPLEEN, ADRENALS: Evaluation limited by lack of IV contrast. No identified sign ificant masses. PANCREAS: No masses. No peripancreatic inflammatory changes. GALLBLADDER: No identified stones by CT criteria. No inflammatory changes to suggest cholecystitis. RIGHT KIDNEY AND URETER: Stable cyst lower pole. No suspicious masses. Assessment limited by lack of IV contrast. No significant calcifications. No hydronephrosis or hydroureter. LEFT KIDNEY AND URETER: Stable cysts. No suspicious masses. Assessment limited by lack of IV contras t. No significant calcifications. No hydronephrosis or hydroureter. AORTA AND RETROPERITONEUM: Atherosclerotic calcifications. No aneurysm. No retroperitoneal masses or adenopathy. BOWEL AND PERITONEAL CAVITY: Postoperative change related to subtotal colectomy with Obdulia's pouch and diverting ileostomy right upper quadrant. APPENDIX: Surgically absent. PELVIS, BLADDER, AND ABDOMINAL WALL:No abnormal masses. No free fluid. Bladder normal. BONES: Degenerative change without fracture or suspicious osseous lesion. OTHER: No other significant finding. IMPRESSION: INTERVAL POSTSURGICAL CHANGE RELATED TO SUBTOTAL COLECTOMY WITH DIVERTING OSTOMY. NO GR OSS POSTSURGICAL COMPLICATION IDENTIFIED. ADDITIONAL CHRONIC CHANGES ABOVE. COMMENT: Quality ID # [id number]: Final reports with documentation of one or more dose reduction techniques (e.g., Automated exposure control, adjustment of the mA and/or kV according to patient size, use of iterative reconstruction technique) TECHNICAL DOCUMENTATION: JOB ID: [id number] [employer]- All Rights Reserved Reading location - IP/workstation name: [email or web address]
[2018-01-26 14:19] LABS: IRON(TIBC) 121.6 ug/dL (49-181)
[2018-01-26 14:21] LABS: ABSOLUTE RETICS # 0.088 10^6/uL (0.028-0.122); RETICULOCYTE COUNT (AUTO) 3.86 % (0.66-2.85)
[2018-01-26 14:52] LABS: APPEARANCE,URINE SLIGHTLY-CLOUDY; BILIRUBIN,URINE NEGATIVE (NEGATIVE); COLOR,URINE YELLOW; GLUCOSE, URINE NEGATIVE (NEGATIVE); KETONES,URINE NEGATIVE (NEGATIVE); LEUKOCYTE ESTERASE,URINE NEGATIVE (NEGATIVE); NITRITE,URINE NEGATIVE (NEGATIVE); PROTEIN,URINE NEGATIVE (NEGATIVE); URINE SPECIFIC GRAVITY 1.012; UROBILINOGEN,URINE NEGATIVE mg/dL (<2.0)
[2018-01-26 15:26] LABS: FOLATE > 20.00 ng/mL (>2.76)
[2018-01-26 15:47] VITALS: BP 105/58
--- NOTE | 2018-01-26 23:07 | EKG REPORT ---
SEVERITY:- ABNORMAL ECG - ATRIAL-SENSED VENTRICULAR-PACED RHYTHM : Confirmed by: Marina George 26-Jan-2018 23:07:00
== END 2018-01-26 16:18 | disposition short-term general hospital (02) ==
LOC: ER 11:28
PROC: 05HM33Z Insertion of Infusion Device into Right Internal Jugular Vein, Percutaneous Approach (ICD-10-PCS; principal; 2018-01-26)
DX: N17.9 Acute kidney failure, unspecified (principal); K92.2 Gastrointestinal hemorrhage, unspecified; D64.9 Anemia, unspecified; I95.9 Hypotension, unspecified; R42 Dizziness and giddiness; I10 Essential (primary) hypertension; E78.00 Pure hypercholesterolemia, unspecified; Z95.0 Presence of cardiac pacemaker; Z98.890 Other specified postprocedural states; I25.2 Old myocardial infarction; Z93.3 Colostomy status
CPT/HCPCS: 93005; 99291; 96361; 96365; 96366; 86900; 86901; 36415; 87040; 87086; 36430; 86850; 82607; 82728; 82746; 83540; 83550; 83690; 85025; 85610; 82272; 85045; 80053; 81001; 84484; 86920; 82803; 83605; 71045; 74176; 93010; 36556; C1751; P9016; J3490; J7060; J7030

== ENCOUNTER 2018-06-22 13:21 | Emergency (ER) | payer MEDICARE, OTHER ==
[2018-06-22 14:23] VITALS: BP 100/58
--- NOTE | 2018-06-22 14:27 | ER Document Report ---
ED General - General Chief Complaint: Abdominal Problem Stated Complaint: ABDOMINAL PAIN Time Seen by Provider: 06/22/18 13:39 TRAVEL OUTSIDE OF THE [place] IN LAST 30 DAYS: No - HPI Notes: Patient is a 73-year-old male that presents to the emergency department for chief complaint of colostomy pain. Patient had a colostomy placed in December at [facility] after having surgery for his ulcerative colitis and colon cancer. Patient states today when he woke up he had a sharp pain at his ostomy site. He states it appears the skin is tearing. The pain is worse with palpitation. He denies any over-the- counter medication or relieving factors to his pain. He states the pain is minimal but uncomfortable. He denies any issue with the ostomy itself. Past Medical History: Ulcerative colitis, colon cancer Past Surgical History: Colectomy Social History: Denies tobacco. Occasional alcohol. Denies drugs. Family History: Reviewed and noncontributory for presenting illness Allergies: Reviewed, see documented allergy list. REVIEW OF SYSTEMS: CONSTITUTIONAL : No fever No chills No diaphoresis No recent illness EENT: No vision changes No congestion No sore throat CARDIOVASCULAR: No chest pain No palpitations RESPIRATORY: No shortness of breath No cough No difficulty breathing GASTROINTESTINAL: No abdominal pain No nausea No vomiting No diarrhea GENITOURINARY: No dysuria No hematuria No difficulty urinating MUSCULOSKELETAL: No back pain No leg pain No arm pain SKIN: No rashes Abdominal ostomy tear LYMPHATIC: No swollen, enlarged glands. NEUROLOGICAL: No lightheadedness No headache No weakness No paresthesias PSYCHIATRIC: No anxiety No depression PHYSICAL EXAMINATION: Vital signs reviewed, nursing noted reviewed. GENERAL: Well-appearing, well-nourished and in no acute distress. HEAD: Atraumatic, normocephalic. EYES: Eyes appear normal, extraocular movements intact, sclera anicteric, conjunctiva are normal. ENT: nares patent, oropharynx clear without exudates. Moist mucous membranes. NECK: Normal range of motion, supple without lymphadenopathy LUNGS: Breath sounds clear to auscultation bilaterally and equal. No wheezes rales or rhonchi. HEART: Regular rate and rhythm without murmurs ABDOMEN: Soft, nontender, normoactive bowel sounds. No rebound, guarding, or rigidity. No masses appreciated. right lateral abdominal colostomy appears pink and intact. There is a small tear with excoriation on the lateral aspect of the ostomy, no active bleeding, no surrounding erythema or induration EXTREMITIES: Nontender, good range of motion, no pitting or edema. NEUROLOGICAL: No focal neurological deficits. Moves all extremities spontaneously Motor and sensory grossly intact on exam. PSYCH: Normal mood, normal affect. SKIN: Warm, Dry, normal turgor. - Related Data Allergies/Adverse Reactions: No Known Allergies Allergy (Verified 01/26/18 11:48) Past Medical History - Social History Smoking Status: Never Smoker Chew tobacco use (# tins/day): No Frequency of alcohol use: None Drug Abuse: None Family History: DM Patient has suicidal ideation: No Patient has homicidal ideation: No - Past Medical History Cardiac Medical History: Reports: Hx Heart Attack - 2010, Hx Hypercholesterolemia, Hx Hypertension Denies: Hx Coronary Artery Disease Pulmonary Medical History: Denies: Hx Asthma, Hx Bronchitis, Hx COPD, Hx Pneumonia Neurological Medical History: Denies: Hx Cerebrovascular Accident, Hx Seizures Renal/ Medical History: Denies: Hx Peritoneal Dialysis GI Medical History: Reports: Hx Ulcerative Colitis Musculoskeletal Medical History: Denies Hx Arthritis Psychiatric Medical History: Reports: Hx Depression Infectious Medical History: Past Surgical History: Reports: Hx Abdominal Surgery - colostomy placed, Hx Appendectomy, Hx Cardiac Surgery - pacemaker, Hx Open Heart Surgery - Cath - 3 stents - Immunizations Hx Diphtheria, Pertussis, Tetanus Vaccination: Yes Hx Pneumococcal Vaccination: 08/26/12 Review of Systems - Review of Systems Notes: Dictated Physical Exam - Vital signs Vitals: Temp Pulse Resp BP Pulse Ox 97.6 F 90 18 88/48 L 90 L 06/22/18 13:25 06/22/18 13:25 06/22/18 13:25 06/22/18 13:25 06/22/18 13:25 - Notes Notes: Dictated Course - Re-evaluation Re-evalutation: 06/22/18 14:24 Vitals reviewed. Nursing notes reviewed. Patient's ostomy is functioning appropriately. He has a small area of excoriation with skin tearing laterally to the ostomy. The tear is partial-thickness and not requiring any surgical intervention. There is no active bleeding. A small piece of Tegaderm was placed over the affected area for protection from feculent material in the tape of the ostomy bag. Patient has an appointment at [facility] with his surgeon on that he is told to keep. He was told if he continues to have issues with the ostomy to call them and attempt to get an appointment earlier. Patient will return to the emergency room if he has further issues with the ostomy or needs replacement of the dressing. He was shown how to clean and dress the area. He was discharged home in stable condition. - Vital Signs Vital signs: Temp Pulse Resp BP Pulse Ox 97.6 F 90 18 88/48 L 90 L 06/22/18 13:25 06/22/18 13:25 06/22/18 13:25 06/22/18 13:25 06/22/18 13:25 Discharge - Discharge Clinical Impression: Colostomy care Condition: Stable Disposition: HOME, SELF-CARE Additional Instructions: Please return to the emergency department if you have any worsening, or concern of your symptoms. Please return to the emergency department if you develop chest pain, difficulty breathing, severe abdominal pain, or ongoing vomiting. Please follow-up with your primary care physician in 2-3 days and any other recommended physicians. If prescribed, take all medications as directed. If you have any questions or concerns do not hesitate to return the emergency department for evaluation. A small piece of Tegaderm was placed over your lateral ostomy excoriation to protect it from the ostomy bag adhesive and feculent material Referrals: DEJON DIXON MD [Primary Care Provider] - Follow up as needed
== END 2018-06-22 14:59 | disposition home or self-care (01) ==
LOC: ER 13:21
DX: Z43.3 Encounter for attention to colostomy (principal); S31.119A Laceration without foreign body of abdominal wall, unspecified quadrant without penetration into peritoneal cavity, initial encounter; X58.XXXA Exposure to other specified factors, initial encounter; I10 Essential (primary) hypertension; Z85.038 Personal history of other malignant neoplasm of large intestine; Z87.19 Personal history of other diseases of the digestive system; Z90.49 Acquired absence of other specified parts of digestive tract
CPT/HCPCS: 99284

== ENCOUNTER → 2019-03-13 | Outpatient (CLI) | payer MEDICARE, OTHER ==
--- NOTE | 2019-03-13 08:58 | WOMENS IMAGING REPORT ---
EXAM DESCRIPTION: BONE DENSITY HIP/SPINE COMPLETED DATE/TIME: 03/13/2019 8:46 am REASON FOR STUDY: M89.9 DISORDER OF BONE, UNSPECIFIED M89.9 DISORDER OF BONE, UNSPECIFIED COMPARISON: 03/11/2017 TECHNIQUE: Dual-Energy X-ray Absorptiometry (DEXA) of the AP Spine and Hip. LIMITATIONS: None. FINDINGS: LUMBAR SPINE: The bone mineral density (BMD) measured from L1-L4 in the AP projection correlates with a T-score of 0.7, which is normal as defined by the World Health Organization. BMD Change vs Baseline: -4.2% HIP: The bone mineral density (BMD) measured in the left hip correlates with a T-score of -0.9 in the femo ral neck, which is normal as defined by the World Health Organization. BMD Change vs Baseline: 16.2% 10 year Fracture Risk Assessment: Major Osteoporotic Fracture: Not available. Hip Fracture: Not available. IMPRESSION: 1. LUMBAR SPINE WHO CLASSIFICATION: NORMAL. 2. HIP WHO CLASSIFICATION: NORMAL. OVERALL ASSESSMENT: WHO CLASSIFICATION: NORMAL. COMMENT: The World Health Organization defines low BMD as follows: T-score: Normal: Greater than -1.0 Osteopenia: Between -1.0 and -2.5 Osteoporosis: Less than -2.5 without fractures Established osteoporosis: Less than -2.5 with fractures In general, you may wish to consider: Diagnosis Treatment Follow-up DEXA Normal BMD Prevention 2-3 years Osteopenia Prevention/Therapy 1-2 years Osteoporosis Therapy Yearly TECHNICAL DOCUMENTATION: JOB ID: [id number] [employer]- All Rights Reserved Reading location - IP/workstation name: [email or web address]
== END ==
LOC: WI 08:20
PROVIDERS: ATTEND Internal Medicine
DX: M89.9 Disorder of bone, unspecified (principal)
CPT/HCPCS: 77080

== ENCOUNTER 2019-07-06 20:43 | Emergency (ER) | payer MEDICARE, OTHER ==
--- NOTE | 2019-07-06 21:15 | ER Document Report ---
ED Medical Screen (RME) - General Chief Complaint: Nose Bleed Stated Complaint: NOSE BLEED/ON BLOOD THINNERS Time Seen by Provider: 07/06/19 21:01 Primary Care Provider: MELITA MYERS MD [Primary Care Provider] - Follow up as needed Mode of Arrival: Wheelchair Information source: Patient Notes: Patient is a 74-year-old male presenting to the emergency department chief complaint of nosebleed. Patient reports he had a nosebleed earlier today and was seen by his regular doctor. He states he is concerned because his blood pressure has also been running low lately and he is on blood pressure medication. Patient currently denies any active nosebleed, he has a tissue packed into the left nare. I have greeted and performed a rapid initial assessment of this patient. A comprehensive ED assessment and evaluation of the patient, analysis of test results and completion of the medical decision making process will be conducted by additional ED providers. I have specifically instructed the patient or family members with the patient to immediately return to any nursing staff should anything change in the patient's condition or with their chief complaint. This medical record was dictated with voice recognizing software. There may be grammatical, syntax errors that are unintended. TRAVEL OUTSIDE OF THE [place] IN LAST 30 DAYS: No - Related Data Allergies/Adverse Reactions: No Known Allergies Allergy (Verified 01/26/18 11:48) Past Medical History - Past Medical History Cardiac Medical History: Reports: Hx Heart Attack - 2010, Hx Hypercholesterolemia, Hx Hypertension Denies: Hx Coronary Artery Disease Pulmonary Medical History: Denies: Hx Asthma, Hx Bronchitis, Hx COPD, Hx Pneumonia Neurological Medical History: Denies: Hx Cerebrovascular Accident, Hx Seizures Renal/ Medical History: Denies: Hx Peritoneal Dialysis GI Medical History: Reports: Hx Ulcerative Colitis Musculoskeltal Medical History: Denies Hx Arthritis Psychiatric Medical History: Reports: Hx Depression Infectious Medical History: Past Surgical History: Reports: Hx Abdominal Surgery - colostomy placed, Hx Appendectomy, Hx Cardiac Surgery - pacemaker, Hx Open Heart Surgery - Cath 05/15/22 - 3 stents - Immunizations Hx Diphtheria, Pertussis, Tetanus Vaccination: Yes Doctor's Discharge - Discharge Referrals: MELITA MYERS MD [Primary Care Provider] - Follow up as needed
[2019-07-07] MEDS ORDERED: TRANEXAMIC ACID INJ/PF 1,000 MG/10 ML SDV IV ONE (00:35)
--- NOTE | 2019-07-07 00:40 | ER Document Report ---
ED ENT - General Chief Complaint: Nose Bleed Stated Complaint: NOSE BLEED/ON BLOOD THINNERS Time Seen by Provider: 07/06/19 21:01 Primary Care Provider: MELITA LUJAN MD [ACTIVE STAFF] - Follow up in 3-5 days Mode of Arrival: Wheelchair Notes: Patient is a 74-year-old male that comes emergency department for chief complaint of nosebleed. He states it started bleeding this morning from the right side, stopped when he went to see his primary care, but then started bleeding from the left side more than the previous 1. He states it did stop but he is still coughing up some clots. He is only on aspirin 81 mg, no other blood thinners. He states he has had a cold for about 3 weeks, he has been taking [id number] medications including decongestants and antihistamines. He also states that he has been struggling with anemia ever since he had a colectomy last year, he has been seeing Dr. Lujan hematology and was placed on Aranesp, he also had 2 units of blood transfused on Saturday of last week, his recheck hemoglobin earlier today was 8.9. 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 TRAVEL OUTSIDE OF THE [place] IN LAST 30 DAYS: No - Related Data Allergies/Adverse Reactions: No Known Allergies Allergy (Verified 01/26/18 11:48) Past Medical History - General Information source: Patient - Social History Smoking Status: Former Smoker Frequency of alcohol use: None Drug Abuse: None Lives with: Family Family History: DM Patient has suicidal ideation: No Patient has homicidal ideation: No - Past Medical History Cardiac Medical History: Reports: Hx Heart Attack - 2010, Hx Hypercholesterolemia, Hx Hypertension Denies: Hx Coronary Artery Disease Pulmonary Medical History: Denies: Hx Asthma, Hx Bronchitis, Hx COPD, Hx Pneumonia Neurological Medical History: Denies: Hx Cerebrovascular Accident, Hx Seizures Renal/ Medical History: Denies: Hx Peritoneal Dialysis GI Medical History: Reports: Hx Ulcerative Colitis Musculoskeletal Medical History: Denies Hx Arthritis Psychiatric Medical History: Reports: Hx Depression Infectious Medical History: Past Surgical History: Reports: Hx Abdominal Surgery - colostomy placed, Hx Appendectomy, Hx Cardiac Surgery - pacemaker, Hx Open Heart Surgery - Cath 05/15/22 - 3 stents - Immunizations Hx Diphtheria, Pertussis, Tetanus Vaccination: Yes Hx Pneumococcal Vaccination: 08/26/12 Review of Systems - Review of Systems Constitutional: See HPI EENT: See HPI Cardiovascular: No symptoms reported Respiratory: No symptoms reported Gastrointestinal: No symptoms reported Genitourinary: No symptoms reported Male Genitourinary: No symptoms reported Musculoskeletal: No symptoms reported Skin: No symptoms reported Hematologic/Lymphatic: No symptoms reported Neurological/Psychological: No symptoms reported Physical Exam - Vital signs Vitals: Pulse BP Pulse Ox 85 94/47 L 91 L 07/06/19 23:35 07/06/19 23:35 07/06/19 23:35 - Notes Notes: GENERAL: Alert, interacts well. No acute distress. Well-appearing. HEAD: Normocephalic, atraumatic. EYES: Pupils equal, round, and reactive to light. Extraocular movements intact. ENT: Oral mucosa moist, tongue midline. Oropharynx unremarkable. Airway patent. There is dried epistaxis in the left nare, no clear bleeding but there does appear to be some blood dripping down the posterior pharynx. Patient occasionally coughed out a blood clot. Oral pharyngeal exam and ENT exam g enerally unremarkable otherwise. LUNGS: Clear to auscultation bilaterally, no wheezes, rales, or rhonchi. No respiratory distress. HEART: Regular rate and rhythm. No murmur ABDOMEN: Soft, non-tender. Non-distended. EXTREMITIES: Moves all 4 extremities spontaneously. No edema, normal radial and dorsalis pedis pulses bilaterally. No cyanosis. BACK: no cervical, thoracic, lumbar midline tenderness. No saddle anesthesia, normal distal neurovascular exam. Moves all extremities in full range of motion. NEUROLOGICAL: Alert and oriented x3. Normal speech. Cranial nerves II through XII grossly intact. PSYCH: Normal affect, normal mood. SKIN: Warm, dry, normal turgor. No rashes or lesions noted. Course - Re-evaluation Re-evalutation: 07/07/19 02:18 On my evaluation patient is in the 100s diastolic, patient is very pleased, this is good for him. His hemoglobin is 8.1, not significantly changed from prior. He did have initial bleeding from the left nare and down the posterior pharynx, however this resolved after he was given TXA. He has been rechecked and has had no additional symptoms. Patient did have a cough for over a week, requested a chest x-ray, this was unremarkable. He had a little bit of wheezing initially but this cleared, suspect upper respiratory congestion that is resolving from his cold. Because of symptoms are almost gone I recommended he not use the decongestants and antihistamines because this most likely caused the epistaxis. Discussed close follow-up and return precautions with patient and significant other, they state appreciation and agreement. Stable at time of discharge. - Vital Signs Vital signs: Temp Pulse Resp BP Pulse Ox 85 18 107/73 97 07/06/19 23:35 07/07/19 02:21 07/07/19 02:21 07/07/19 02:21 - Laboratory Result Diagrams: 07/07/19 00:50 Laboratory results interpreted by me: 07/07/19 00:50 RBC 2.47 L Hgb 8.1 L Hct 24.6 L MCV 100 H RDW 24.5 H Plt Count 135 L Discharge - Discharge Clinical Impression: Epistaxis Upper respiratory infection Qualifiers: URI type: unspecified URI Qualified Code(s): J06.9 - Acute upper respiratory infection, unspecified Condition: Stable Disposition: HOME, SELF-CARE Additional Instructions: There is a significant chance of re-bleeding following a nosebleed. Proper care makes this less likely. Do not touch the nose for 24 hours. Do not blow the nose forcefully for one week. After 24 hours, gently apply Vaseline or Bacitracin ointment to both nostrils with the tip of a finger or carefully with a Q tip, three times a day, for one week. Avoid the antihistamines and decongestants you have been using because these will likely make your symptoms worse. It's normal to have a bloody mucous discharge for a few days. If active bleeding recurs, blow all the blood from the nose, then sit quietly and pinch the nose as firmly as possible for 10 minutes. If this does not stop the bleeding, return for further care. Return for any other concerning symptoms. Referrals: MELITA LUJAN MD [ACTIVE STAFF] - Follow up in 3-5 days
[2019-07-07 01:07] LABS: ABSOLUTE BASOPHILS # (AUTO) 0.1 10^3/uL (0.0-0.2); ABSOLUTE EOSINOPHILS # (AUTO) 0.2 10^3/uL (0.0-0.6); ABSOLUTE LYMPHOCYTES (AUTO) 1.6 10^3/uL (0.5-4.7); ABSOLUTE MONOCYTES (AUTO) 0.6 10^3/uL (0.1-1.4); ABSOLUTE NEUT (AUTO) 6.6 10^3/uL (1.7-8.2); BASOPHILS % (AUTO) 0.7 % (0-2); EOSINOPHILS % (AUTO) 1.8 % (0-6); HEMATOCRIT 24.6 % (37.9-51.0); HEMOGLOBIN 8.1 g/dL (13.5-17.0); LYMPHOCYTES % (AUTO) 17.5 % (13-45); MEAN CORPUSCULAR HEMOGLOBIN 32.8 pg (27.0-33.4); MEAN CORPUSCULAR HGB CONC 32.9 g/dL (32.0-36.0); MEAN CORPUSCULAR VOLUME 100 fl (80-97); MONOCYTES % (AUTO) 6.2 % (3-13); PLATELET COUNT 135 10^3/uL (150-450); RED BLOOD COUNT 2.47 10^6/uL (4.35-5.55); RED CELL DISTRIBUTION WIDTH 24.5 % (11.5-14.0); SEGMENTED NEUTROPHILS % (AUTO) 73.8 % (42-78); TOTAL CELLS COUNTED % (AUTO) 100 %; WHITE BLOOD COUNT 8.9 10^3/uL (4.0-10.5)
[2019-07-07 01:27] LABS: ANISOCYTOSIS 3+; BURR CELLS 1+; OVALOCYTES 2+; POIKILOCYTOSIS 3+; TOXIC GRANULATION 1+
[2019-07-07 01:28] LABS: PLATELET COMMENT ADEQUATE; TEAR DROP CELLS 2+
--- NOTE | 2019-07-07 01:37 | RADIOLOGY REPORT (SQ) ---
EXAM DESCRIPTION: [facility]: XR CHEST 1 VIEW CLINICAL HISTORY: 74 years Male, cough, wheezing COMPARISON: 01/26/2018 FINDINGS: Lungs are clear, with no focal infiltrate, pneumothorax, or pleural effusion. Sternal wires are again noted. Heart is enlarged. Pacemaker remains in place with intact leads. Bony structures are unremarkable. IMPRESSION: 1. Cardiomegaly. Status post sternotomy. 2. Pacemaker. 3. No acute pulmonary infiltrates.
[2019-07-07 01:43] LABS: PROTHROMBIN TIME 13.2 SEC (11.4-15.4)
[2019-07-07 01:44] LABS: PARTIAL THROMBOPLASTIN TIME 24.4 SEC (23.5-35.8)
[2019-07-07 02:39] VITALS: BP 107/73
== END 2019-07-07 02:53 | disposition home or self-care (01) ==
LOC: ER 20:43
DX: R04.0 Epistaxis (principal); J06.9 Acute upper respiratory infection, unspecified; R04.2 Hemoptysis; R06.2 Wheezing; D64.9 Anemia, unspecified; I25.2 Old myocardial infarction; I10 Essential (primary) hypertension; Z79.82 Long term (current) use of aspirin; Z79.899 Other long term (current) drug therapy; Z87.891 Personal history of nicotine dependence; Z95.0 Presence of cardiac pacemaker; Z95.5 Presence of coronary angioplasty implant and graft
CPT/HCPCS: 86900; 86901; 36415; 86850; 85025; 85610; 85730; 71045; J3490; 96374; 99283

== ENCOUNTER 2019-07-27 12:47 | Emergency (ER) | payer MEDICARE, OTHER ==
--- NOTE | 2019-07-27 12:56 | ER Document Report ---
ED Cardiac - General Chief Complaint: Chest Pain Stated Complaint: CHEST PAIN Time Seen by Provider: 07/27/19 12:54 Primary Care Provider: MELITA MYERS MD [ACTIVE STAFF] - Follow up as needed Mode of Arrival: Medic Information source: Patient TRAVEL OUTSIDE OF THE [place] IN LAST 30 DAYS: No - HPI Notes: 74 year old male with a history of Ulcerative Colitis s/p Colostomy, Prostate Cancer, CKD, Chronic Anemia, Prior OH, HTN, HLD, Pacemaker, Cardiac Stents, Prior Cardiac Valve Replacement here for 1 hour of chest pain and shortness of breath along with several days of generalized weakness. Of note ,the patient apparently just had a blood transfusion 2 weeks ago. The patient says he has had endoscopies/colonoscopies in the past but no source of bleeding has been found. The patient has been having blood colored colostomy output over the last few days however. - Related Data Allergies/Adverse Reactions: No Known Allergies Allergy (Verified 01/26/18 11:48) Past Medical History - Social History Smoking Status: Never Smoker Frequency of alcohol use: Occasional Family History: DM - Past Medical History Cardiac Medical History: Reports: Hx Heart Attack - 2010, Hx Hypercholesterolemia, Hx Hypertension Denies: Hx Coronary Artery Disease Pulmonary Medical History: Denies: Hx Asthma, Hx Bronchitis, Hx COPD, Hx Pneumonia Neurological Medical History: Denies: Hx Cerebrovascular Accident, Hx Seizures Renal/ Medical History: Denies: Hx Peritoneal Dialysis GI Medical History: Reports: Hx Ulcerative Colitis Musculoskeletal Medical History: Denies Hx Arthritis Psychiatric Medical History: Reports: Hx Depression Infectious Medical History: Past Surgical History: Reports: Hx Abdominal Surgery - colostomy placed, Hx Appendectomy, Hx Cardiac Surgery - pacemaker, Hx Open Heart Surgery - Cath 05/15/22 - 3 stents - Immunizations Hx Diphtheria, Pertussis, Tetanus Vaccination: Yes Hx Pneumococcal Vaccination: 08/26/12 Review of Systems - Review of Systems Notes: Constitutional: Negative for fever. Weakness HENT: Negative for sore throat. Eyes: Negative for visual changes. Cardiovascular: Chest Pain Respiratory: Shortness of breath. Gastrointestinal: Negative for abdominal pain, vomiting or diarrhea. Bloody stool from colostomy. Genitourinary: Negative for dysuria. Musculoskeletal: Negative for back pain. Skin: Negative for rash. Neurological: Negative for headaches, weakness or numbness. 10 point ROS negative except as marked above and in HPI. Physical Exam - Vital signs Vitals: Temp 97.4 F 07/27/19 12:50 - Notes Notes: GENERAL: Pale and ill appearing. Moderate acute distress. Anxious HEAD: Atraumatic, normocephalic. EYES: Pupils equal round and reactive to light, extraocular movements intact, sclera anicteric, conjunctiva pale. ENT: Nares patent, oropharynx clear without exudates. Moist mucous membranes. NECK: Normal range of motion, supple without lymphadenopathy or JVD. LUNGS: Breath sounds clear to auscultation bilaterally and equal. No wheezes rales or rhonchi. HEART: Tachycardic. Normal rhythm without murmurs, rubs or gallops. ABDOMEN: Soft, nontender, normoactive bowel sounds. No guarding, no rebound. No masses appreciated. Colostomy has melena in it. EXTREMITIES: Normal range of motion, no pitting or edema. No clubbing or cyanosis. NEUROLOGICAL: Cranial nerves II through XII grossly intact. Normal speech. PSYCH: Normal mood, normal affect. SKIN: Pale Skin, Warm, Dry, normal turgor, no rashes or lesions noted. Course - Re-evaluation Re-evalutation: 07/27/19 14:15 The patient arrived complaining of chest pain and shortness of breath and he was found to be tachycardic, hypoxic, and hypotensive. His hemoglobin came back at 6.0 so emergency release blood (2units) was ordered given his active chest pain and an elevated Troponin (all thought to be due to demand ischmemia at this time). The patient felt better after fluids and once his blood transfusion started. The patient's chest pain improved while in the ER. The patient will need both GI and Cardiac care and there is no GI specialist hall monitor here at [place] today. Patient requested to be transferred to [facility] since he gets his GI Care there. 07/27/19 14:55 Dr. Domínguez of GI Surgery at [facility] will accept the patient to a Step Down Bed. The patient was re-evaluated by me at this time and told of his impending transfer to [facility]. He feels much better then when he arrived to the ER and his color is much better after the blood transfusions. The patient is still tachycardic but he is no longer hypotensive. 07/27/19 19:51 The patient was re-evaluated prior to being transferred to [facility]. The patient is hemodynamically stable and he continues to feel well. The patient was told [facility] requested an NG tube prior to transport but the patient refused an NG tube here at [place]. - Vital Signs Vital signs: Temp Pulse Resp BP Pulse Ox 99.4 F 79 20 106/58 L 99 07/27/19 19:35 07/27/19 15:42 07/27/19 19:35 07/27/19 19:35 07/27/19 19:35 - Laboratory Result Diagrams: 07/27/19 16:20 07/27/19 12:55 Laboratory results interpreted by me: 07/27/19 07/27/19 07/27/19 12:55 12:55 12:55 WBC 13.1 H RBC 1.90 L Hgb 6.0 L Hct 19.0 L MCV 100 H MCHC 31.5 L RDW 23.8 H Plt Count Band Neutrophils % 1 L Promyelocytes % Abs Neuts (Manual) 9.8 H Carbon Dioxide 21 L BUN 47 H Creatinine 2.01 H Est GFR ( Amer) 40 L Est GFR (MDRD) Non-Af 33 L Glucose 152 H Creatine Kinase 34 L NT-Pro-B Natriuret Pep 2590 H Total Protein 6.2 L Albumin 3.2 L Crossmatch 07/27/19 07/27/19 12:55 16:20 WBC RBC 2.41 L Hgb 7.6 L Hct 22.8 L MCV MCHC RDW 18.2 H Plt Count 146 L Band Neutrophils % 2 L Promyelocytes % 2 H Abs Neuts (Manual) Carbon Dioxide BUN Creatinine Est GFR ( Amer) Est GFR (MDRD) Non-Af Glucose Creatine Kinase NT-Pro-B Natriuret Pep Total Protein Albumin Crossmatch See Detail - EKG Interpretation by Me EKG shows normal: Sinus rhythm, [place] - normal axis, ST-T Waves - T wave inversions in III, V1,V2, V3 Rate: Tachycardia [place]/QRS: RBBB Additional EKG results interpreted by me: 07/27/19 14:23 wide complex Critical Care Note - Critical Care Note Total time excluding time spent on procedures (mins): 45 - Multiple patient reassessments made by me given his unstable vital signs on ER arrival. Discharge - Discharge Clinical Impression: GI bleed, NSTEMI (non-ST elevated myocardial infarction) Condition: Serious Disposition: [place] Referrals: MELITA MYERS MD [ACTIVE STAFF] - Follow up as needed
[2019-07-27 13:14] LABS: MEAN CORPUSCULAR HEMOGLOBIN 31.5 pg (27.0-33.4); MEAN CORPUSCULAR HGB CONC 31.5 g/dL (32.0-36.0); MEAN CORPUSCULAR VOLUME 100 fl (80-97); RED CELL DISTRIBUTION WIDTH 23.8 % (11.5-14.0); WHITE BLOOD COUNT 13.1 10^3/uL (4.0-10.5)
[2019-07-27 13:24] LABS: PROTHROMBIN TIME 13.2 SEC (11.4-15.4)
[2019-07-27 13:33] LABS: ALBUMIN 3.2 g/dL (3.5-5.0); ALKALINE PHOSPHATASE 42 U/L (38-126); ANION GAP 16 (5-19); ASPARTATE AMINO TRANSFERASE 22 U/L (17-59); BILIRUBIN,DIRECT 0.1 mg/dL (0.0-0.4); BILIRUBIN,TOTAL 0.7 mg/dL (0.2-1.3); BLOOD UREA NITROGEN 47 mg/dL (7-20); CALCIUM 8.6 mg/dL (8.4-10.2); CARBON DIOXIDE 21 mmol/L (22-30); CHLORIDE 100 mmol/L (98-107); CREATINE KINASE 34 U/L (55-170); GLUCOSE 152 mg/dL (75-110); POTASSIUM 4.2 mmol/L (3.6-5.0); TOTAL PROTEIN 6.2 g/dL (6.3-8.2)
[2019-07-27 13:37] LABS: ABSOLUTE LYMPHOCYTES# (MANUAL) 2.5 10^3/uL (0.5-4.7); ABSOLUTE MONOCYTES # (MANUAL) 0.8 10^3/uL (0.1-1.4); BAND NEUTROPHILS % (MANUAL) 1 % (3-5); BASOPHILS % (MANUAL) 0 % (0-2); EOSINOPHILS % (MANUAL) 0 % (0-6); LYMPHOCYTES % (MANUAL) 19 % (13-45); MONOCYTES % (MANUAL) 6 % (3-13); NUCLEATED RED BLOOD CELLS 2 /100 WBC (0); SEGMENTED NEUTROPHILS % (MAN) 74 % (42-78); TOTAL CELLS COUNTED 100
[2019-07-27 13:38] LABS: ANISOCYTOSIS 3+; OVALOCYTES 1+; PLATELET CLUMPS PRESENT; PLATELET COUNT 225 10^3/uL (150-450); POIKILOCYTOSIS 2+; POLYCHROMASIA SLIGHT; TEAR DROP CELLS 1+
[2019-07-27 13:44] LABS: CREATINE KINASE MB 2.18 ng/mL (<4.55)
[2019-07-27] MEDS ORDERED: NORMAL SALINE 1000 ML 1,000 ML IV ONE (13:56)
[2019-07-27 13:59] LABS: TROPONIN I 0.527 ng/mL
--- NOTE | 2019-07-27 14:03 | RADIOLOGY REPORT (SQ) ---
EXAM DESCRIPTION: CHEST SINGLE VIEW COMPLETED DATE/TIME: 07/27/2019 1:51 pm REASON FOR STUDY: chest pain and SOB COMPARISON: 07/07/2019 EXAM PARAMETERS: NUMBER OF VIEWS: One view. TECHNIQUE: Single frontal radiographic view of the chest acquired. RADIATION DOSE: NA LIMITATIONS: None. FINDINGS: LUNGS AND PLEURA: Mild basilar interstitial prominence. No focal consolidation. Possible trace right effusion. No pneumothorax. MEDIASTINUM AND HILAR STRUCTURES: No masses. Contour normal. HEART AND VASCULAR STRUCTURES: Enlarged cardiac silhouette, stable. Aortic atherosclerosis. BONES: Sternotomy changes. HARDWARE: Right-sided cardiac pacer with leads overlying right atrium and right ventricle. Sacrifice d left-sided pacer leads. OTHER: No other significant finding. IMPRESSION: Enlarged cardiac silhouette with questionable mild interstitial edema. No significant e ffusion. TECHNICAL DOCUMENTATION: JOB ID: [id number] [employer] All Rights Reserved Reading location - IP/workstation name: [email or web address]
[2019-07-27] MEDS: NORMAL SALINE 250 ML IV PRN ×2 (14:44→15:45)
--- NOTE | 2019-07-27 15:06 | EKG REPORT ---
SEVERITY:- ABNORMAL ECG - WIDE COMPLEX TACHYCARDIA ( MOST LIKELY ATRIAL FIBRILLATION WITH RBBB). RIGHT BUNDLE BRANCH BLOCK : Confirmed by: Marian Delcid MD 27-Jul-2019 15:06:00
[2019-07-27 16:34] LABS: HEMATOCRIT 22.8 % (37.9-51.0); MEAN CORPUSCULAR HEMOGLOBIN 31.7 pg (27.0-33.4); MEAN CORPUSCULAR HGB CONC 33.6 g/dL (32.0-36.0); PLATELET COUNT 146 10^3/uL (150-450); RED BLOOD COUNT 2.41 10^6/uL (4.35-5.55); RED CELL DISTRIBUTION WIDTH 18.2 % (11.5-14.0); WHITE BLOOD COUNT 8.3 10^3/uL (4.0-10.5)
[2019-07-27 16:38] LABS: HEMOGLOBIN 7.6 g/dL (13.5-17.0)
[2019-07-27 16:41] LABS: MEAN CORPUSCULAR VOLUME 95 fl (80-97)
[2019-07-27 16:56] LABS: ABSOLUTE LYMPHOCYTES# (MANUAL) 1.1 10^3/uL (0.5-4.7); BAND NEUTROPHILS % (MANUAL) 2 % (3-5); BASOPHILS % (MANUAL) 0 % (0-2); EOSINOPHILS % (MANUAL) 0 % (0-6); LYMPHOCYTES % (MANUAL) 13 % (13-45); MONOCYTES % (MANUAL) 12 % (3-13); PROMYELOCYTES % (MANUAL) 2 % (0); SEGMENTED NEUTROPHILS % (MAN) 71 % (42-78); TOTAL CELLS COUNTED 100
[2019-07-27 16:57] LABS: ANISOCYTOSIS 2+
[2019-07-27 16:58] LABS: POLYCHROMASIA SLIGHT; TEAR DROP CELLS SLIGHT
[2019-07-27 16:59] LABS: PLATELET COMMENT DECREASED
[2019-07-27 19:41] VITALS: BP 106/58
== END 2019-07-27 20:00 | disposition short-term general hospital (02) ==
LOC: ER 12:47
DX: K92.2 Gastrointestinal hemorrhage, unspecified (principal); I21.4 Non-ST elevation (NSTEMI) myocardial infarction; N18.9 Chronic kidney disease, unspecified; I13.10 Hypertensive heart and chronic kidney disease without heart failure, with stage 1 through stage 4 chronic kidney disease, or unspecified chronic kidney disease; R07.9 Chest pain, unspecified; R06.02 Shortness of breath; Z93.3 Colostomy status; Z85.46 Personal history of malignant neoplasm of prostate; I25.2 Old myocardial infarction; E78.5 Hyperlipidemia, unspecified; Z95.0 Presence of cardiac pacemaker; Z95.4 Presence of other heart-valve replacement; R00.0 Tachycardia, unspecified; R09.02 Hypoxemia; I95.9 Hypotension, unspecified
CPT/HCPCS: 93005; 99291; 96360; 96361; 86900; 86901; 36415; 82553; 36430; 86850; 82550; 85025; 85610; 80053; 84484; 86920; 83880; 71045; 93010; P9016; J7030; J7050

== ENCOUNTER 2019-08-20 08:57 | Emergency (ER) | payer MEDICARE, OTHER ==
--- NOTE | 2019-08-20 09:38 | ER Document Report ---
ED Medical Screen (RME) - General Chief Complaint: General Weakness Stated Complaint: WEAKNESS Time Seen by Provider: 08/20/19 09:18 Primary Care Provider: MELITA MYERS MD [Primary Care Provider] - Follow up as needed Mode of Arrival: Wheelchair Information source: Patient Notes: 74-year-old male patient presenting to the emergency department chief complaint of generalized weakness. He states he has been battling anemia for the last year, states he has had multiple surgeries done at [facility], he is requesting lab recheck and transfer back to [facility]. He believes his hemoglobin is probably low. Heart sounds S1-S2 present with no ectopy noted. Lung sounds clear and equal bilaterally. Patient alert, answering all questions appropriately. I have greeted and performed a rapid initial assessment of this patient. A comprehensive ED assessment and evaluation of the patient, analysis of test results and completion of the medical decision making process will be conducted by additional ED providers. I have specifically instructed the patient or family members with the patient to immediately return to any nursing staff should anything change in the patient's condition or with their chief complaint. TRAVEL OUTSIDE OF THE [place] IN LAST 30 DAYS: No - Related Data Allergies/Adverse Reactions: No Known Allergies Allergy (Verified 08/20/19 09:14) Past Medical History - Past Medical History Cardiac Medical History: Reports: Hx Heart Attack - 2010, Hx Hypercholesterolemia, Hx Hypertension Denies: Hx Coronary Artery Disease Pulmonary Medical History: Denies: Hx Asthma, Hx Bronchitis, Hx COPD, Hx Pneumonia Neurological Medical History: Denies: Hx Cerebrovascular Accident, Hx Seizures Renal/ Medical History: Denies: Hx Peritoneal Dialysis GI Medical History: Reports: Hx Ulcerative Colitis Musculoskeltal Medical History: Denies Hx Arthritis Psychiatric Medical History: Reports: Hx Depression Infectious Medical History: Past Surgical History: Reports: Hx Abdominal Surgery - colostomy placed, Hx Appendectomy, Hx Cardiac Surgery - pacemaker, Hx Open Heart Surgery - Cath 05/15/22 - 3 stents - Immunizations Hx Diphtheria, Pertussis, Tetanus Vaccination: Yes Doctor's Discharge - Discharge Referrals: MELITA MYERS MD [Primary Care Provider] - Follow up as needed
[2019-08-20 11:00] LABS: APPEARANCE,URINE CLEAR; BILIRUBIN,URINE NEGATIVE (NEGATIVE); COLOR,URINE YELLOW; GLUCOSE, URINE NEGATIVE (NEGATIVE); KETONES,URINE NEGATIVE (NEGATIVE); LEUKOCYTE ESTERASE,URINE NEGATIVE (NEGATIVE); NITRITE,URINE NEGATIVE (NEGATIVE); PROTEIN,URINE NEGATIVE (NEGATIVE); URINE SPECIFIC GRAVITY 1.009; UROBILINOGEN,URINE NEGATIVE mg/dL (<2.0)
--- NOTE | 2019-08-20 11:26 | ER Document Report ---
Entered by BERTIN HUBER SCRIBE 08/20/19 1039 Acting as scribe for:ZAIDA FRANKLIN MD ED Dizziness/Weakness - General Chief Complaint: General Weakness Stated Complaint: WEAKNESS Time Seen by Provider: 08/20/19 09:18 Primary Care Provider: DEJON REDMOND MD [ACTIVE STAFF] - Follow up tomorrow Mode of Arrival: Wheelchair Information source: Patient Notes: This 74 year old male patient presents to the ED today with complaints of gener alized weakness that has been ongoing for about a x1 year. Patient states that has had multiple major surgeries in the past at [facility] including an aortic valve replacement in September 2017 and a total colectomy with an ileostomy in December 2017. Patient reports that he is anemic and that he received his last blood transfusion x1 week ago for a bleed in his abdomen. Patient states that the source of the bleed is unknown. Patient denies being on blood thinners. TRAVEL OUTSIDE OF THE [place] IN LAST 30 DAYS: No - Related Data Allergies/Adverse Reactions: No Known Allergies Allergy (Verified 08/20/19 09:14) Past Medical History - General Information source: Patient - Social History Smoking Status: Former Smoker - Quit in 2010 Cigarette use (# per day): No Chew tobacco use (# tins/day): No Smoking Education Provided: No Frequency of alcohol use: None Drug Abuse: None Lives with: Alone Family History: DM Patient has suicidal ideation: No Patient has homicidal ideation: No - Past Medical History Cardiac Medical History: Reports: Hx Coronary Artery Disease, Hx Heart Attack - 2010, Hx Hypercholesterolemia, Hx Hypertension Malignancy Medical History: Reports Hx Prostate Cancer - Treated with radiation seed implantation, and external beam radiation GI Medical History: Reports: Hx Ulcerative Colitis Psychiatric Medical History: Reports: Hx Depression Infectious Medical History: Past Surgical History: Reports: Hx Abdominal Surgery - Total colectomy with i leostomy in December 2017, Hx Appendectomy, Hx Cardiac Surgery - pacemaker, Hx Colostomy, Hx Coronary Stent - X3, Hx Open Heart Surgery - run blood gas aortic valve replacement September 2017 - Immunizations Hx Diphtheria, Pertussis, Tetanus Vaccination: Yes Hx Pneumococcal Vaccination: 08/26/12 Review of Systems - Review of Systems Constitutional: See HPI, Weakness EENT: No symptoms reported Cardiovascular: No symptoms reported Respiratory: No symptoms reported Gastrointestinal: No symptoms reported Genitourinary: No symptoms reported Male Genitourinary: No symptoms reported Musculoskeletal: No symptoms reported Skin: No symptoms reported Hematologic/Lymphatic: See HPI, Anemia Neurological/Psychological: No symptoms reported -: Yes All other systems reviewed and negative Physical Exam - Vital signs Vitals: Temp Pulse Resp BP Pulse Ox 98.2 F 84 18 137/54 H 92 08/20/19 09:46 08/20/19 09:46 08/20/19 09:46 08/20/19 09:46 08/20/19 09:46 - General General appearance: Alert In distress: None - HEENT Head: Normocephalic, Atraumatic Eyes: Normal Pupils: PERRL - Respiratory Respiratory status: No respiratory distress Chest status: Nontender Breath sounds: Normal Chest palpation: Normal - Cardiovascular Rhythm: Regular Heart sounds: Normal auscultation Murmur: No - Abdominal Inspection: Obese Distension: No distension Bowel sounds: Normal Tenderness: Nontender Organomegaly: No organomegaly - Back Back: Normal, Nontender - Extremities General upper extremity: Normal inspection General lower extremity: Edema - trace pitting edema in LE - Neurological Neuro grossly intact: Yes - Psychological Associated symptoms: Normal affect, Normal mood - Skin Skin Temperature: Warm Skin Moisture: Dry Skin Color: Pale Course - Re-evaluation Re-evalutation: 08/20/19 18:57 Patient's case was discussed with Dr. Garcia at [facility]. 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 He did have some endoscopic fulgurations. He was transfused just 7 days ago. [facility] is very tight on beds. He does not feel the patient would benefit from transfer at this time, as they have nothing acutely to offer him other than transfusions that we are doing here. I discussed the case with Dr. Redmond, he knows the patient well. He will see patient in the office tomorrow to arrange more frequent checks of his hemoglobin level. - Vital Signs Vital signs: Temp Pulse Resp BP Pulse Ox 98.9 F 87 20 148/50 H 97 08/20/19 19:07 08/20/19 19:07 08/20/19 19:07 08/20/19 19:07 08/20/19 19:07 - Laboratory Result Diagrams: 08/20/19 11:15 08/20/19 11:15 Laboratory results interpreted by me: 08/20/19 08/20/19 08/20/19 11:15 11:15 11:15 RBC 2.28 L Hgb 6.8 L Hct 20.7 L RDW 19.2 H Monocytes % (Manual) 1 L Eosinophils % (Manual) 8 H Abs Monocytes (Manual) 0.0 L BUN 21 H Creatinine 1.74 H Est GFR ( Amer) 47 L Est GFR (MDRD) Non-Af 39 L Glucose 111 H Creatine Kinase < 20 L Albumin 3.3 L Crossmatch See Detail - EKG Interpretation by Me EKG shows normal: Sinus rhythm, [place], Intervals, QRS Complexes, ST-T Waves Rate: Normal - 86 Rhythm: NSR, PVC's [place]/QRS: RBBB Discharge - Discharge Clinical Impression: Anemia Qualifiers: Anemia type: iron deficiency Iron deficiency anemia type: chronic blood loss Qualified Code(s): D50.0 - Iron deficiency anemia secondary to blood loss (chronic) Condition: Stable Disposition: HOME, SELF-CARE Additional Instructions: Follow-up with Dr. Gino benjamin tomorrow morning about 10 AM to recheck your blood levels. Be sure to keep your appointment at [facility] on 08/25/2019. RETURN TO THE EMERGENCY ROOM IF ANY NEW OR WORSENING SYMPTOMS. Referrals: DEJON REDMOND MD [ACTIVE STAFF] - Follow up tomorrow Scribe Attestation: 08/20/19 19:07 I personally performed the services described in the documentation, reviewed and edited the documentation which was dictated to the scribe in my presence, and it accurately records my words and actions. I personally performed the services described in the documentation, reviewed and edited the documentation which was dictated to the scribe in my presence, and it accurately records my words and actions.
[2019-08-20 11:36] LABS: HEMATOCRIT 20.7 % (37.9-51.0); MEAN CORPUSCULAR HEMOGLOBIN 29.6 pg (27.0-33.4); MEAN CORPUSCULAR HGB CONC 32.6 g/dL (32.0-36.0); MEAN CORPUSCULAR VOLUME 91 fl (80-97); PLATELET COUNT 186 10^3/uL (150-450); RED BLOOD COUNT 2.28 10^6/uL (4.35-5.55); RED CELL DISTRIBUTION WIDTH 19.2 % (11.5-14.0); WHITE BLOOD COUNT 4.8 10^3/uL (4.0-10.5)
[2019-08-20 11:43] LABS: HEMOGLOBIN 6.8 g/dL (13.5-17.0)
[2019-08-20] MEDS ORDERED: NORMAL SALINE 250 ML IV PRN (11:48)
[2019-08-20 11:53] LABS: ALBUMIN 3.3 g/dL (3.5-5.0); ANION GAP 8 (5-19); ASPARTATE AMINO TRANSFERASE 24 U/L (17-59); BILIRUBIN,DIRECT 0.2 mg/dL (0.0-0.4); BILIRUBIN,TOTAL 0.9 mg/dL (0.2-1.3); BLOOD UREA NITROGEN 21 mg/dL (7-20); CARBON DIOXIDE 30 mmol/L (22-30); CHLORIDE 102 mmol/L (98-107); GLUCOSE 111 mg/dL (75-110); POTASSIUM 3.9 mmol/L (3.6-5.0); TOTAL PROTEIN 6.6 g/dL (6.3-8.2)
[2019-08-20 11:58] LABS: ALKALINE PHOSPHATASE 65 U/L (38-126)
[2019-08-20 12:00] LABS: CALCIUM 8.4 mg/dL (8.4-10.2)
[2019-08-20 12:03] LABS: CREATINE KINASE < 20 U/L (55-170)
[2019-08-20 12:11] LABS: ABSOLUTE LYMPHOCYTES# (MANUAL) 1.1 10^3/uL (0.5-4.7); BAND NEUTROPHILS % (MANUAL) 4 % (3-5); BASOPHILS % (MANUAL) 0 % (0-2); EOSINOPHILS % (MANUAL) 8 % (0-6); LYMPHOCYTES % (MANUAL) 22 % (13-45); MONOCYTES % (MANUAL) 1 % (3-13); NUCLEATED RED BLOOD CELLS 4 /100 WBC (0); SEGMENTED NEUTROPHILS % (MAN) 65 % (42-78); TOTAL CELLS COUNTED 100
[2019-08-20 12:13] LABS: ANISOCYTOSIS 2+; OVALOCYTES SLIGHT; PLATELET COMMENT ADEQUATE; POLYCHROMASIA SLIGHT
--- NOTE | 2019-08-20 16:23 | EKG REPORT ---
SEVERITY:- ABNORMAL ECG - SINUS RHYTHM VENTRICULAR PREMATURE COMPLEX RIGHT BUNDLE BRANCH BLOCK : Confirmed by: Marian Delcid MD 20-Aug-2019 16:22:05
[2019-08-20 19:34] VITALS: BP 142/62
== END 2019-08-20 19:32 | disposition home or self-care (01) ==
LOC: ER 08:57
DX: D50.0 Iron deficiency anemia secondary to blood loss (chronic) (principal); R53.1 Weakness; I25.10 Atherosclerotic heart disease of native coronary artery without angina pectoris; E78.00 Pure hypercholesterolemia, unspecified; I10 Essential (primary) hypertension; E66.9 Obesity, unspecified; Z85.46 Personal history of malignant neoplasm of prostate; Z95.0 Presence of cardiac pacemaker; Z93.2 Ileostomy status; I25.2 Old myocardial infarction
CPT/HCPCS: 93005; 99285; 86900; 86901; 36415; 36430; 86850; 82550; 83735; 85025; 80053; 81001; 84484; 86920; 93010; P9016

== ENCOUNTER 2019-09-01 13:34 | Emergency (ER) | payer MEDICARE, OTHER ==
--- NOTE | 2019-09-01 14:02 | ER Document Report ---
ED General - General Chief Complaint: Breathing Difficulty Stated Complaint: DIFFICULTY BREATHING Time Seen by Provider: 09/01/19 13:47 Primary Care Provider: ALEISHA FONG MD [Primary Care Provider] - Follow up as needed TRAVEL OUTSIDE OF THE [place] IN LAST 30 DAYS: No - Related Data Allergies/Adverse Reactions: No Known Allergies Allergy (Verified 08/20/19 09:14) Past Medical History - Social History Smoking Status: Former Smoker Family History: DM - Past Medical History Cardiac Medical History: Reports: Hx Coronary Artery Disease, Hx Heart Attack - 2010, Hx Hypercholesterolemia, Hx Hypertension Pulmonary Medical History: Denies: Hx Asthma, Hx Bronchitis, Hx COPD, Hx Pneumonia Neurological Medical History: Denies: Hx Cerebrovascular Accident, Hx Seizures Renal/ Medical History: Denies: Hx Peritoneal Dialysis Malignancy Medical History: Reports Hx Prostate Cancer - Treated with radiation seed implantation, and external beam radiation GI Medical History: Reports: Hx Ulcerative Colitis Musculoskeletal Medical History: Denies Hx Arthritis Psychiatric Medical History: Reports: Hx Depression Infectious Medical History: Past Surgical History: Reports: Hx Abdominal Surgery - Total colectomy with ileostomy in December 2017, Hx Appendectomy, Hx Cardiac Surgery - pacemaker, Hx Colostomy, Hx Coronary Stent - X3, Hx Open Heart Surgery - run blood gas aortic valve replacement September 2017 - Immunizations Hx Diphtheria, Pertussis, Tetanus Vaccination: Yes Hx Pneumococcal Vaccination: 08/26/12 Physical Exam - Vital signs Vitals: Temp Pulse Resp Pulse Ox 97.6 F 51 L 34 H 76 L 09/01/19 13:55 09/01/19 13:55 09/01/19 13:55 09/01/19 13:55 - Notes Notes: Patient was brought in by paramedics with complaint of shortness of breath that started today. He is any chest pain fevers cough nausea vomiting or abdominal pain. Was is been feeling lightheaded for couple days. Says he gets this way when his hemoglobin drops. He has a history of chronic anemia is got transfused multiple times recently. Transfusion was on 1231. The timing of 2 units and took his blood count up to about 8.4. Patient said he was hospitalized at [facility] early July and had endoscopy and was scoped through his colostomy site. He is found to have multiple AVMs that were cauterized. Similar when he was here they did consult [facility] and only recommendation at that time was to transfuse patient was reports his appetite is been decreased for several days He was reports he had a brief episode of chest tightness earlier today that lasted about 15 [address] he has had some palpitations Past medical history is a 71 for a non-STEMI aortic valve replacement your blood pressure was elevated today needs to be rechecked again in 1 to 2 weeks to determine if you need to be on medication/have your medication adjusted. Untreated high blood pressure can cause heart attack stroke and kidney failure GI bleed ulcerative colitis with colostomy Social history does not smoke or drink at all. Review of systems pertinent positives and negatives in HPI otherwise all the systems were reviewed and acutely negative does report that he had dark stools and blood in his colostomy bag for a while PHYSICIAN EXAM -vital signs are noted triage note and note from triage reviewed GENERAL: Well-appearing, well-nourished and in __no acute distress____ HEAD: Atraumatic, normocephalic. EYES: Pupils equal round and reactive to light, extraocular movements intact, sclera anicteric, conjunctiva are normal. ENT: nares patent, oropharynx clear without exudates. Slightly dry mucous membranes. NECK: supple without lymphadenopathy LUNGS: Breath sounds clear to auscultation bilaterally and equal. No wheezes rales or rhonchi. HEART: Rapid rate and regular rhythm ABDOMEN: Soft, nontender, normoactive bowel sounds. [address] around the knee visible blood EXTREMITIES: No deformity, he has +3 edema to the knees is no palpable cords NEUROLOGICAL: No focal neurological deficits. Moves all extremities spontaneously and on command. PSYCH: Normal mood, normal affect. SKIN: Warm, Dry, normal turgor, no rashes or lesions noted. BACK-nontender in the midline Differential diagnosis dehydration abnormal electrolytes anemia Course - Re-evaluation Re-evalutation: 09/01/19 17:30 Addendum I did discuss the case with his cash applications clerk. They have been in contact with [facility] and they were supposed to contact the patient regarding follow- up for a balloon endoscopic mentation was to see about transferring the patient back to [facility] was the recommendation since patient was transfused about a week ago ED patient is remained stable was given a 5 and cc bolus of normal saline s ignificant change in his heart rate. Repeat EKG again suggest this could be atrial flutter with 2-1 block no additional episodes of chest pain 09/01/19 20:13 Patient was given 1 dose of adenosine and so that is her normal sinus rhythm confirmed by EKG however shortly after she went back into an SVT. She was given Cardizem bolus and drip and went back into a sinus rhythm Consult I discussed case with the hospitalist that [facility] indicated that because patient on Cardizem drip will go to cardiology. Have discussed case with driver/refuse collector. They both indicate that no beds right now correction be placed on the list. Recommended that we place the patient on oral Cardizem and try to wean him off the Cardizem and reconsult. By that point he will have a second liter of blood and may be able to go to a floor bed or just a monitored bed Plan at this point will start the oral shows high diltiazem and will DR SLAUGHTER F/U ON PT - Vital Signs Vital signs: Temp Pulse Resp BP Pulse Ox 100.3 F 142 H 15 122/49 L 96 09/01/19 19:06 09/01/19 18:10 09/01/19 19:06 09/01/19 19:06 09/01/19 19:06 - Laboratory Result Diagrams: 09/01/19 14:44 09/01/19 14:44 Laboratory results interpreted by me: 09/01/19 09/01/19 09/01/19 14:44 14:44 15:34 RBC 2.17 L Hgb 6.0 L Hct 18.3 L RDW 18.8 H Band Neutrophils % 8 H Sodium 135.8 L Chloride 96 L BUN 31 H Creatinine 1.88 H Est GFR ( Amer) 43 L Est GFR (MDRD) Non-Af 35 L Glucose 123 H Creatine Kinase < 20 L Albumin 3.4 L Crossmatch See Detail - Diagnostic Test Radiology reviewed: Reports reviewed - EKG Interpretation by Me Additional EKG results interpreted by me: 09/01/19 16:25 2 EKG shows a SVT versus atrial flutter with 2-1 block with a right bundle br anch block and some nonspecific ST wave changes repeat EKG was done by increasing the speed and height hopefully visualize P waves. And there is no obvious P waves present this and that this may be atrial flutter with 2-1 block Critical Care Note - Critical Care Note Total time excluding time spent on procedures (mins): 75 Discharge - Discharge Clinical Impression: GI bleed Qualifiers: GI bleed type/associated pathology: unspecified gastrointestinal hemorrhage type Qualified Code(s): K92.2 - Gastrointestinal hemorrhage, unspecified Atrial flutter Qualifiers: Atrial flutter type: unspecified Qualified Code(s): I48.92 - Unspecified atrial flutter Condition: Stable Disposition: [place] Referrals: ALEISHA FONG MD [Primary Care Provider] - Follow up as needed
[2019-09-01] MEDS ORDERED: NORMAL SALINE 500 ML IV ONE (14:08)
[2019-09-01] MEDS ORDERED: NORMAL SALINE 1000 ML 1,000 ML IV ONE (14:08)
--- NOTE | 2019-09-01 14:20 | RADIOLOGY REPORT (SQ) ---
EXAM DESCRIPTION: CHEST SINGLE VIEW COMPLETED DATE/TIME: 09/01/2019 2:08 pm REASON FOR STUDY: t2 db COMPARISON: 07/27/2019. NUMBER OF VIEWS: One view. TECHNIQUE: Single frontal radiographic view of the chest acquired. LIMITATIONS: None. FINDINGS: LUNGS AND PLEURA: No opacities, masses or pneumothorax. No pleural effusion. MEDIASTINUM AND HILAR STRUCTURES: No masses. Contour normal. HEART AND VASCULAR STRUCTURES: Heart enlarged without failure. Normal vasculature. BONES: No acute findings. HARDWARE: Transvenous pacemaker and abandoned epicardial pacer leads. Sternotomy wires. OTHER: No other significant finding. IMPRESSION: HEART ENLARGED WITHOUT FAILURE. NO OTHER SIGNIFICANT RADIOGRAPHIC FINDING IN THE CHEST. TECHNICAL DOCUMENTATION: JOB ID: [id number] [employer]- All Rights Reserved Reading location - IP/workstation name: [email or web address]
[2019-09-01 15:13] LABS: HEMATOCRIT 18.3 % (37.9-51.0); INTERNATIONAL RATION (INR) 1.03; MEAN CORPUSCULAR HEMOGLOBIN 27.8 pg (27.0-33.4); PLATELET COUNT 218 10^3/uL (150-450); PROTHROMBIN TIME 13.5 SEC (11.4-15.4); RED BLOOD COUNT 2.17 10^6/uL (4.35-5.55); RED CELL DISTRIBUTION WIDTH 18.8 % (11.5-14.0); WHITE BLOOD COUNT 5.5 10^3/uL (4.0-10.5)
[2019-09-01 15:23] LABS: ALBUMIN 3.4 g/dL (3.5-5.0); ALKALINE PHOSPHATASE 59 U/L (38-126); ANION GAP 12 (5-19); ASPARTATE AMINO TRANSFERASE 22 U/L (17-59); BILIRUBIN,DIRECT 0.2 mg/dL (0.0-0.4); BILIRUBIN,TOTAL 1.1 mg/dL (0.2-1.3); BLOOD UREA NITROGEN 31 mg/dL (7-20); CALCIUM 8.5 mg/dL (8.4-10.2); CARBON DIOXIDE 28 mmol/L (22-30); CHLORIDE 96 mmol/L (98-107); GLUCOSE 123 mg/dL (75-110); POTASSIUM 3.6 mmol/L (3.6-5.0); TOTAL PROTEIN 6.9 g/dL (6.3-8.2)
[2019-09-01 15:24] LABS: CREATINE KINASE < 20 U/L (55-170)
[2019-09-01 15:28] LABS: MEAN CORPUSCULAR VOLUME 84 fl (80-97)
[2019-09-01] MEDS ORDERED: NORMAL SALINE 250 ML IV PRN ×2 (15:34)
[2019-09-01] MEDS ORDERED: ACETAMINOPHEN 325 MG TABLET PO PRN (15:34)
[2019-09-01] MEDS ORDERED: DIPHENHYDRAMINE HCL 25 MG CAPSULE PO PRN (15:34)
[2019-09-01] MEDS ORDERED: POTASSIUM CHLORIDE 10 MEQ TABLET.ER PO ONE (15:37)
[2019-09-01 15:39] LABS: TROPONIN I 0.075 ng/mL
[2019-09-01 15:42] LABS: ABSOLUTE LYMPHOCYTES# (MANUAL) 1.3 10^3/uL (0.5-4.7); ABSOLUTE MONOCYTES # (MANUAL) 0.2 10^3/uL (0.1-1.4); ANISOCYTOSIS 2+; BAND NEUTROPHILS % (MANUAL) 8 % (3-5); BASOPHILS % (MANUAL) 0 % (0-2); EOSINOPHILS % (MANUAL) 2 % (0-6); HYPOCHROMASIA 1+; LYMPHOCYTES % (MANUAL) 24 % (13-45); MONOCYTES % (MANUAL) 3 % (3-13); SEGMENTED NEUTROPHILS % (MAN) 63 % (42-78); TOTAL CELLS COUNTED 100
[2019-09-01 15:43] LABS: POLYCHROMASIA 1+
[2019-09-01 15:44] LABS: PLATELET COMMENT ADEQUATE; SCHISTOCYTES SLIGHT
[2019-09-01 15:45] LABS: CREATINE KINASE MB 0.7 ng/mL (<4.55)
[2019-09-01] MEDS ORDERED: ADENOSINE INJ/PF 6 MG/2 ML SDV IV ONE (16:30)
[2019-09-01] MEDS ORDERED: DILTIAZEM HCL INJ 25 MG/5 ML VIAL IV ONE (18:30)
[2019-09-01] MEDS ORDERED: DILTIAZEM HCL/D5W 125 MG/125 ML RTUINJ IV PRN (18:31)
[2019-09-01] MEDS ORDERED: DILTIAZEM HCL 60 MG TABLET PO ONE (20:25)
--- NOTE | 2019-09-01 22:31 | EKG REPORT ---
SEVERITY:- ABNORMAL ECG - SINUS RHYTHM WITH PACING ARTIFACTS MULTIPLE VENTRICULAR PREMATURE COMPLEXES RIGHT BUNDLE BRANCH BLOCK : Confirmed by: Marina George 01-Sep-2019 22:30:56
--- NOTE | 2019-09-01 22:32 | EKG REPORT ---
SEVERITY:- ABNORMAL ECG - WIDE COMPLEX TACHYCARDIA VS SVT WITH RBBB RIGHT BUNDLE BRANCH BLOCK : Confirmed by: Marina George 01-Sep-2019 22:31:58
--- NOTE | 2019-09-01 22:34 | EKG REPORT ---
SEVERITY:- ABNORMAL ECG - SINUS TACHYCARDIA VS SVT, CONSIDER A FLUTTER WITH 2:1 BLOCK AT THIS HEART RATE RIGHT BUNDLE BRANCH BLOCK : Confirmed by: Marina George 01-Sep-2019 22:34:08
[2019-09-02 05:27] LABS: HEMATOCRIT 22.4 % (37.9-51.0); MEAN CORPUSCULAR HEMOGLOBIN 27.1 pg (27.0-33.4); MEAN CORPUSCULAR HGB CONC 33.2 g/dL (32.0-36.0); MEAN CORPUSCULAR VOLUME 82 fl (80-97); PLATELET COUNT 200 10^3/uL (150-450); RED BLOOD COUNT 2.75 10^6/uL (4.35-5.55); RED CELL DISTRIBUTION WIDTH 19.1 % (11.5-14.0); WHITE BLOOD COUNT 5.6 10^3/uL (4.0-10.5)
[2019-09-02 06:01] LABS: HEMOGLOBIN 7.4 g/dL (13.5-17.0)
[2019-09-02 06:16] LABS: ABSOLUTE LYMPHOCYTES# (MANUAL) 1.1 10^3/uL (0.5-4.7); BAND NEUTROPHILS % (MANUAL) 2 % (3-5); BASOPHILS % (MANUAL) 0 % (0-2); EOSINOPHILS % (MANUAL) 3 % (0-6); LYMPHOCYTES % (MANUAL) 19 % (13-45); MONOCYTES % (MANUAL) 0 % (3-13); SEGMENTED NEUTROPHILS % (MAN) 72 % (42-78); TOTAL CELLS COUNTED 100
[2019-09-02 06:17] LABS: ANISOCYTOSIS 2+; HYPOCHROMASIA SLIGHT
[2019-09-02 06:19] LABS: PLATELET COMMENT ADEQUATE
[2019-09-02 06:20] LABS: IMMATURE MONONUCLEAR% (MANUAL) 2 % (0); MYELOCYTES % (MANUAL) 2 % (0)
[2019-09-02 06:22] LABS: OVALOCYTES 1+; TEAR DROP CELLS 1+
[2019-09-02 08:31] LABS: NUCLEATED RED BLOOD CELLS 11 /100 WBC (0)
[2019-09-02 09:30] LABS: PATH REVIEW PATHOLOGIST REVIEWED
[2019-09-02 09:32] LABS: PATH REVIEW PATHOLOGIST REVIEWED
--- NOTE | 2019-09-02 15:10 | ER Document Report ---
Doctor's Note Notes: 09/02/19 15:04 Patient is still waiting for transfer to [facility]. Patient denies any chest pain. Patient has received blood. There is still currently no bed at [facility]. Patient did cardiovert with a Cardizem drip. They wanted the patient transferred to p.o. medications. I spoke to the pharmacist. I have updated the patient's medications including the metoprolol at night and the fludrocortisone and doxazosin in the morning. Patient is not tachycardic and denies any chest pain. Pharmacist recommends the diltiazem tablet 30 mg 4 times a day. Blood pressures currently elevated at this time. Patient has not received any blood pressure lowering medication since last evening.
[2019-09-02] MEDS: DILTIAZEM HCL 30 MG TABLET PO SCH ×3 (15:43→22:18)
[2019-09-02] MEDS: FLUDROCORTISONE ACETATE 0.1 MG TABLET PO SCH (15:43)
[2019-09-02 18:22] LABS: HEMATOCRIT 21.8 % (37.9-51.0); MEAN CORPUSCULAR HEMOGLOBIN 27.3 pg (27.0-33.4); MEAN CORPUSCULAR HGB CONC 33.9 g/dL (32.0-36.0); MEAN CORPUSCULAR VOLUME 81 fl (80-97); PLATELET COUNT 212 10^3/uL (150-450); RED BLOOD COUNT 2.71 10^6/uL (4.35-5.55); RED CELL DISTRIBUTION WIDTH 19.9 % (11.5-14.0)
[2019-09-02 18:31] LABS: HEMOGLOBIN 7.4 g/dL (13.5-17.0)
[2019-09-02] MEDS ORDERED: NORMAL SALINE 250 ML IV PRN (18:43)
[2019-09-02] MEDS: METOPROLOL SUCCINATE 25 MG TAB.SR.24H PO SCH (22:18)
[2019-09-03 06:49] LABS: HEMATOCRIT 24.5 % (37.9-51.0); HEMOGLOBIN 8.2 g/dL (13.5-17.0); MEAN CORPUSCULAR HEMOGLOBIN 27.1 pg (27.0-33.4); MEAN CORPUSCULAR HGB CONC 33.5 g/dL (32.0-36.0); MEAN CORPUSCULAR VOLUME 81 fl (80-97); PLATELET COUNT 189 10^3/uL (150-450); RED BLOOD COUNT 3.03 10^6/uL (4.35-5.55); RED CELL DISTRIBUTION WIDTH 19.1 % (11.5-14.0); WHITE BLOOD COUNT 4.8 10^3/uL (4.0-10.5)
[2019-09-03 07:11] LABS: ANION GAP 8 (5-19); BLOOD UREA NITROGEN 29 mg/dL (7-20); CALCIUM 8.2 mg/dL (8.4-10.2); CARBON DIOXIDE 29 mmol/L (22-30); CHLORIDE 101 mmol/L (98-107); GLUCOSE 103 mg/dL (75-110); POTASSIUM 3.7 mmol/L (3.6-5.0)
[2019-09-03] MEDS: ALLOPURINOL 100 MG TABLET PO SCH (08:19)
[2019-09-03 08:36] LABS: APPEARANCE,URINE CLEAR; BILIRUBIN,URINE NEGATIVE (NEGATIVE); COLOR,URINE YELLOW; GLUCOSE, URINE NEGATIVE (NEGATIVE); KETONES,URINE NEGATIVE (NEGATIVE); LEUKOCYTE ESTERASE,URINE NEGATIVE (NEGATIVE); NITRITE,URINE NEGATIVE (NEGATIVE); PROTEIN,URINE NEGATIVE (NEGATIVE); URINE SPECIFIC GRAVITY 1.017; UROBILINOGEN,URINE NEGATIVE mg/dL (<2.0)
[2019-09-03] MEDS: FUROSEMIDE 40 MG TABLET PO SCH (10:20)
[2019-09-03] MEDS: FLUDROCORTISONE ACETATE 0.1 MG TABLET PO SCH (10:20)
[2019-09-03] MEDS: DOXAZOSIN MESYLATE 1 MG TABLET PO SCH (10:20)
[2019-09-03] MEDS: DILTIAZEM HCL 30 MG TABLET PO SCH ×4 (10:20→23:02)
[2019-09-03] MEDS: PANTOPRAZOLE SODIUM 40 MG TABLET.DR PO SCH ×2 (10:50→17:08)
[2019-09-03] MEDS: METOPROLOL SUCCINATE 25 MG TAB.SR.24H PO SCH (23:02)
--- NOTE | 2019-09-03 23:24 | ER Document Report ---
Doctor's Note Notes: 09/03/19 @20:00 Interval history: he's been accepted by [facility] medicine service w/ expectation he will ultimately be scoped by GI, but currently still waiting for bed to open up there. He was a few days ago, on Saturday, essentially stabilized here in the ED, and he remains stable as of now 50hr s/p being accepted as trn. And as of right now at midnight [facility] does still not expect to have a bed of any level of care for remainder of this shift till 7AM. he presented to us on follow-up and then hip surgery Saturday needing stabilization. given 1u PRBC & required initially diltiazem gtt for rapid A flutter w/ 2:1 block. He received 2 more units PRBC, been and transitioned to po diltiazem. Advising may call over 24 hours and has been stable. Last CBC/lab >12 h/a @6 AM this a.m. Staff is working on drawing labs to repeat his CBC, BMP. Since He presented on Saturday with a fresh ostomy bag to our ED and over the course of 47 hours at this point, has emptied his bag 2x of melanotic stool. Spoke with the GI doctor at [facility] Dr. Alexandra about logistics of this pt. he reviewed his chart: h/o UC s/p colectomy 12/2017 and of Colon Ca (follows with Dr. Lujan, oncology here at [facility]) but over last 1.5 yrs has undergone 10 endoscopic procedures. During most recent [facility] admission (07/27/19 -> 08/07/19) had upper endoscopy (-) bleeding, but 07/29/19 needed ileoscopy (-) active bleed...then capsule endoscopy 07/29 showing duodenal AVMs + small bowel abnormalities likely 2/2 NSAID. Then 07/31 small bowel enteroscopy showing small gastric ulcer w/o active bleeding, rec could possibly rx w/ APC. Pt was obs'd 72 hrs s/p these multiple endoscopies and transfusions and d/c'd 08/07. Followed up 08/10, Hgb had dropped to ~7: given 2u PRBC, 08/13 dropped again and required transfusion, and again 08/20 & 08/25 transfused each time. Exam: has good understanding of his disease processes and limitations within the system of being able to get [facility] and onto a GI schedule when he is not needing emergent intervention. His ostomy bag is full black stool. Abdomen soft sitting up right in chair watching TV. HR 80 still AF, SBP 120. Review of his vital signs show that he is been stable for 48 hrs or so. Assessment/Plan: ~1AM have tried to switch him to ED / ED transfer, since that would be one way he would get on the GI schedule likely in the upcoming week. In the meantime, Dr. Alexandra suggested we try other [facility] since he does need scope. If none of these--[place], [facility] or [place]-- have capacity to accept either direct admission or ED the ED transfer then will continue to wait for [facility] bed and remain on that list. Dr. diana and I have discussed : -Will get him on the list or try for QUAN ED transfer at [facility], then wayne D[facility] and remain on [facility] list -Give him 1 more unit prbc now since his Cr up to 2.3 from 1.3 and Htc downtrending. Therefore unless he bleeds more--set repeating q12 hr cbc & bmp draws over the next 72 hours unless that needs to be more or less frequently checked based on amount of bleeding and continued stability versus instability also the charge nurse is working on seeing if it is possible to get him report more definitive access site in the morning by consulting surgery just since he has been poked so many times for each lab draw. Dr. diana will put in a surgical consult that he can be evaluated in the morning for this. willa perez md [facility]
[2019-09-04 00:42] LABS: HEMATOCRIT 23.5 % (37.9-51.0); MEAN CORPUSCULAR HEMOGLOBIN 27.1 pg (27.0-33.4); MEAN CORPUSCULAR HGB CONC 33.3 g/dL (32.0-36.0); MEAN CORPUSCULAR VOLUME 81 fl (80-97); PLATELET COUNT 188 10^3/uL (150-450); RED BLOOD COUNT 2.89 10^6/uL (4.35-5.55); RED CELL DISTRIBUTION WIDTH 19.2 % (11.5-14.0); WHITE BLOOD COUNT 4.8 10^3/uL (4.0-10.5)
[2019-09-04 01:00] LABS: ANION GAP 7 (5-19); BLOOD UREA NITROGEN 30 mg/dL (7-20); CARBON DIOXIDE 29 mmol/L (22-30); CHLORIDE 103 mmol/L (98-107); GLUCOSE 107 mg/dL (75-110); POTASSIUM 3.8 mmol/L (3.6-5.0)
[2019-09-04 01:02] LABS: HEMOGLOBIN 7.8 g/dL (13.5-17.0)
--- NOTE | 2019-09-04 01:10 | ER Document Report ---
Doctor's Note Notes: 09/04/19 01:09 This case was discussed with [facility] Dr. Scott and she advises he will be put on the waiting list but there are no beds at this time. This was through the transfer center. Patient's hemoglobin was 7.8 and therefore 1 unit of packed RBCs was ordered UN and creatinine were up as well.
[2019-09-04] MEDS ORDERED: NORMAL SALINE 250 ML IV PRN ×2 (06:09)
[2019-09-04 06:32] LABS: HEMATOCRIT 22.9 % (37.9-51.0); MEAN CORPUSCULAR HEMOGLOBIN 27.1 pg (27.0-33.4); MEAN CORPUSCULAR HGB CONC 33.3 g/dL (32.0-36.0); MEAN CORPUSCULAR VOLUME 82 fl (80-97); PLATELET COUNT 193 10^3/uL (150-450); RED BLOOD COUNT 2.81 10^6/uL (4.35-5.55); RED CELL DISTRIBUTION WIDTH 19.2 % (11.5-14.0); WHITE BLOOD COUNT 5.2 10^3/uL (4.0-10.5)
[2019-09-04 06:40] LABS: HEMOGLOBIN 7.6 g/dL (13.5-17.0)
[2019-09-04 06:50] LABS: ANION GAP 8 (5-19); BLOOD UREA NITROGEN 29 mg/dL (7-20); CALCIUM 8.4 mg/dL (8.4-10.2); CARBON DIOXIDE 30 mmol/L (22-30); CHLORIDE 101 mmol/L (98-107); GLUCOSE 100 mg/dL (75-110)
[2019-09-04] MEDS: DOXAZOSIN MESYLATE 1 MG TABLET PO SCH (09:34)
[2019-09-04] MEDS: DILTIAZEM HCL 30 MG TABLET PO SCH ×4 (09:34→23:59)
[2019-09-04] MEDS: PANTOPRAZOLE SODIUM 40 MG TABLET.DR PO SCH ×2 (09:34→18:56)
[2019-09-04] MEDS: FUROSEMIDE 40 MG TABLET PO SCH (09:34)
[2019-09-04] MEDS: ALLOPURINOL 100 MG TABLET PO SCH (09:35)
[2019-09-04] MEDS: FLUDROCORTISONE ACETATE 0.1 MG TABLET PO SCH (09:35)
[2019-09-04 13:44] LABS: HEMATOCRIT 28.8 % (37.9-51.0); HEMOGLOBIN 9.6 g/dL (13.5-17.0); MEAN CORPUSCULAR HEMOGLOBIN 27.4 pg (27.0-33.4); MEAN CORPUSCULAR HGB CONC 33.1 g/dL (32.0-36.0); MEAN CORPUSCULAR VOLUME 83 fl (80-97); PLATELET COUNT 213 10^3/uL (150-450); RED BLOOD COUNT 3.49 10^6/uL (4.35-5.55); RED CELL DISTRIBUTION WIDTH 18.8 % (11.5-14.0); WHITE BLOOD COUNT 5.3 10^3/uL (4.0-10.5)
[2019-09-04 13:50] LABS: ABSOLUTE LYMPHOCYTES# (MANUAL) 1.5 10^3/uL (0.5-4.7); ABSOLUTE MONOCYTES # (MANUAL) 0.4 10^3/uL (0.1-1.4); BAND NEUTROPHILS % (MANUAL) 2 % (3-5); BASOPHILS % (MANUAL) 1 % (0-2); EOSINOPHILS % (MANUAL) 7 % (0-6); IMMATURE MONONUCLEAR% (MANUAL) 1 % (0); LYMPHOCYTES % (MANUAL) 28 % (13-45); MONOCYTES % (MANUAL) 7 % (3-13); MYELOCYTES % (MANUAL) 1 % (0); NUCLEATED RED BLOOD CELLS 3 /100 WBC (0); SEGMENTED NEUTROPHILS % (MAN) 53 % (42-78); TOTAL CELLS COUNTED 100
[2019-09-04 13:53] LABS: ANISOCYTOSIS 1+; OVALOCYTES SLIGHT; POLYCHROMASIA SLIGHT; SCHISTOCYTES 1+; TEAR DROP CELLS SLIGHT
[2019-09-04 13:54] LABS: PLATELET COMMENT ADEQUATE
--- NOTE | 2019-09-04 17:55 | PDOC CONSULTATION ---
Consultation Consult Date: 09/04/19 Attending physician:: JOHN GUZMAN Provider Consulted: ZAIDA FRANKLIN Consult reason:: Medical management History of Present Illness Admission Date/PCP: ALEISHA FONG MD History of Present Illness: OSCAR JOHN is a 74 year old male past medical history of CAD status post CABG and stent placement, hyperlipidemia, hypertension, prostate cancer status post seed implantation and external beam radiation, ulcerative colitis post total col ectomy with ileostomy 2017, intestinal AVM with multiple cauterization in the past and depression. Patient was brought into ED by EMS complaining of shortness of breath, lightheadedness for the last couple of days. He was noted to be severely anemic, started on PRBC transfusion and arrangements has been made for him to be transferred to [facility]. While waiting to be transferred to [facility] hospitalist co nsulted for medical management. Past Medical History Cardiac Medical History: Reports: Coronary Artery Disease, Myocardial Infarction - 2011, Hyperlipidema, Hypertension Pulmonary Medical History: Denies: Asthma, Bronchitis, Chronic Obstructive Pulmonary Disease (COPD), Pneumonia Neurological Medical History: Denies: Seizures GI Medical History: Reports: Ulcerative Colitis Musculoskeltal Medical History: Denies: Arthritis Psychiatric Medical History: Reports: Depression Hematology: Reports: Anemia Past Surgical History Past Surgical History: Reports: Appendectomy, Colostomy, Coronary Stent - X3 Social History Smoking Status: Former Smoker Frequency of Alcohol Use: None Hx Recreational Drug Use: No Drugs: None Hx Prescription Drug Abuse: No Family History Family History: DM Medication/Allergy Home Medications: Allopurinol [Zyloprim 100 mg Tablet] 100 mg PO DAILY 09/25/17 Metoprolol Succinate [Toprol Xl 50 mg Tab.sr] 12.5 mg PO BID 09/25/17 Doxazosin Mesylate [Cardura 1 Mg Tablet] 1 mg PO DAILY 01/26/18 Folic Acid 1 mg PO DAILY 01/26/18 Rivaroxaban [Xarelto 15 mg Tablet] 1 tab PO DAILY 01/26/18 Rosuvastatin Calcium [Crestor 20 mg Tablet] 20 mg PO DAILY 01/26/18 Pantoprazole Sodium [Protonix] 40 mg PO BID 08/20/19 Aspirin [Ecotrin] 81 mg PO DAILY PRN 09/03/19 Allergies/Adverse Reactions: No Known Allergies Allergy (Verified 08/20/19 09:14) Physical Exam Vital Signs: Temp Pulse Resp BP Pulse Ox 98.5 F 71 19 137/63 H 96 09/04/19 10:26 09/04/19 04:53 09/04/19 10:26 09/04/19 10:26 09/04/19 10:26 Intake & Output 09/03/19 09/04/19 09/05/19 06:59 06:59 06:59 Intake Total 1067 300 Balance 1067 300 Results Laboratory Results: 09/04/19 13:00 09/04/19 06:10 09/01/19 09/04/19 09/04/19 15:34 00:21 00:21 WBC 4.8 RBC 2.89 L Hgb 7.8 L Hct 23.5 L MCV 81 MCH 27.1 MCHC 33.3 RDW 19.2 H Plt Count 188 Seg Neutrophils % Sodium 138.6 Potassium 3.8 Chloride 103 Carbon Dioxide 29 Anion Gap 7 BUN 30 H Creatinine 2.10 H Est GFR ( Amer) 38 L Glucose 107 Calcium 8.0 L Triglycerides Cholesterol LDL Cholesterol Direct VLDL Cholesterol HDL Cholesterol Blood Type O POSITIVE Antibody Screen NEGATIVE 09/04/19 09/04/19 09/04/19 06:10 06:10 10:15 WBC 5.2 RBC 2.81 L Hgb 7.6 L Hct 22.9 L MCV 82 MCH 27.1 MCHC 33.3 RDW 19.2 H Plt Count 193 Seg Neutrophils % Sodium 138.9 Potassium 4.0 Chloride 101 Carbon Dioxide 30 Anion Gap 8 BUN 29 H Creatinine 1.91 H Est GFR ( Amer) 42 L Glucose 100 Calcium 8.4 Triglycerides Cancelled Cholesterol Cancelled LDL Cholesterol Direct Cancelled VLDL Cholesterol Cancelled HDL Cholesterol Cancelled Blood Type Antibody Screen 09/04/19 13:00 WBC 5.3 RBC 3.49 L Hgb 9.6 L Hct 28.8 L MCV 83 MCH 27.4 MCHC 33.1 RDW 18.8 H Plt Count 213 Seg Neutrophils % Not Reportable Sodium Potassium Chloride Carbon Dioxide Anion Gap BUN Creatinine Est GFR ( Amer) Glucose Calcium Triglycerides Cholesterol LDL Cholesterol Direct VLDL Cholesterol HDL Cholesterol Blood Type Antibody Screen 09/01/19 09/01/19 09/01/19 14:44 14:44 18:06 Creatine Kinase < 20 L CK-MB (CK-2) 0.70 Troponin I 0.075 0.129 09/02/19 03:08 Creatine Kinase CK-MB (CK-2) Troponin I 0.219 Impressions: Chest X-Ray 09/01/19 13:39 IMPRESSION: HEART ENLARGED WITHOUT FAILURE. NO OTHER SIGNIFICANT RADIOGRAPHIC FINDING IN THE CHEST. Assessment and Plan - Diagnosis (1) Acute blood loss anemia Is this a current diagnosis for this admission?: Yes Plan: Most likely due to multiple intestinal AVM. Hold antiplatelets, hold anticoagulants. Monitor H&H. Supportive transfusion. Goal of hemoglobin 9 to 10 A/dL given history of CAD. (2) CKD (chronic kidney disease) Qualifiers: Chronic kidney disease stage: stage 3 (moderate) Qualified Code(s): N18.3 - Chronic kidney disease, stage 3 (moderate) Is this a current diagnosis for this admission?: Yes Plan: Creatinine on admission 1.88. Baseline creatinine 1-2. Monitor volume status and electrolytes replace as needed. Daily BMP. Avoid nephrotoxic meds. (3) Acquired arteriovenous malformation of small intestine Is this a current diagnosis for this admission?: Yes Plan: History of multiple AVMs status post multiple endoscopies and cauterization. Patient is pending transfer to [facility]. Plan as above. (4) CAD (coronary artery disease) Qualifiers: Coronary Disease-Associated Artery/Lesion type: bypass graft, autologous artery Is this a current diagnosis for this admission?: Yes Plan: Status post multiple stent placement in 2010. Has not had any recent stress test. Denies any anginal system however patient was noted to have elevated troponins on 09/01/2019 at 0.075, 0.129, 0.219 which as per patient was attributed to one episode of atrial flutter. Trend troponins, PRN nitroglycerin, PRN morphine, beta-blockers, statins. Hold antiplatelets due to acute GI bleed. (5) H/O aortic valve replacement Is this a current diagnosis for this admission?: Yes Plan: History of bioprosthetic aortic valve replacement in 2018. (6) Atrial flutter Qualifiers: Atrial flutter type: unspecified Qualified Code(s): I48.92 - Unspecified atrial flutter Is this a current diagnosis for this admission?: Yes Plan: Patient had one episode of atrial flutter while in ED. Was a started on Cardizem drip. Currently in this rhythm. Continue beta-blockers. Continue telemetry. PRN metoprolol. (7) Elevated troponin Is this a current diagnosis for this admission?: Yes Plan: History of CAD. Status post multiple stent placement 2010. Not sure if elevated troponins are due to acute coronary syndrome or due to atrial flutter complicated by underlying severe anemia. Patient is denying any chest pain and EKG has no acute changes. Troponins on 09/01/2019 at 0.075, 0.129, 0.219 which as per patient was attributed to one episode of atrial flutter. Trend troponins, PRN nitroglycerin, PRN morphine, beta-blockers, statins. Hold antiplatelets due to acute GI bleed. If troponin still elevated will consult cardiology.
[2019-09-04] MEDS ORDERED: HYDRALAZINE HCL INJ/PF 20 MG/1 ML SDV IV PRN (17:57)
[2019-09-04] MEDS ORDERED: METOPROLOL TARTRATE PF/INJ 5 MG/5 ML SDV IV PRN (17:58)
[2019-09-04] MEDS ORDERED: OXYCODONE-ACETAMINOPHEN 5-325 MG TABLET PO PRN (17:59)
[2019-09-04] MEDS ORDERED: ACETAMINOPHEN 325 MG TABLET PO PRN (17:59)
[2019-09-04] MEDS ORDERED: ONDANSETRON HCL INJ/PF 4 MG/2 ML SDV IV PRN (17:59)
[2019-09-04] MEDS ORDERED: MORPHINE SULFATE 10 MG/ML INJ IV PRN (18:00)
[2019-09-04] MEDS ORDERED: NITROGLYCERIN 0.4 MG/TAB 25 TAB/BOTTLE SL PRN (18:00)
[2019-09-04 19:31] LABS: ANION GAP 10 (5-19); BLOOD UREA NITROGEN 25 mg/dL (7-20); CALCIUM 8.3 mg/dL (8.4-10.2); CARBON DIOXIDE 28 mmol/L (22-30); CHLORIDE 100 mmol/L (98-107); GLUCOSE 121 mg/dL (75-110); POTASSIUM 3.6 mmol/L (3.6-5.0)
[2019-09-04 19:46] LABS: HEMATOCRIT 25.7 % (37.9-51.0); HEMOGLOBIN 8.7 g/dL (13.5-17.0); MEAN CORPUSCULAR HEMOGLOBIN 27.7 pg (27.0-33.4); MEAN CORPUSCULAR VOLUME 82 fl (80-97); PLATELET COUNT 181 10^3/uL (150-450); RED BLOOD COUNT 3.15 10^6/uL (4.35-5.55); RED CELL DISTRIBUTION WIDTH 18.4 % (11.5-14.0); WHITE BLOOD COUNT 4.7 10^3/uL (4.0-10.5)
[2019-09-04 20:08] LABS: ABSOLUTE LYMPHOCYTES# (MANUAL) 1.1 10^3/uL (0.5-4.7); ABSOLUTE MONOCYTES # (MANUAL) 0.1 10^3/uL (0.1-1.4); BAND NEUTROPHILS % (MANUAL) 3 % (3-5); BASOPHILS % (MANUAL) 0 % (0-2); EOSINOPHILS % (MANUAL) 7 % (0-6); LYMPHOCYTES % (MANUAL) 23 % (13-45); MONOCYTES % (MANUAL) 2 % (3-13); NUCLEATED RED BLOOD CELLS 2 /100 WBC (0); SEGMENTED NEUTROPHILS % (MAN) 65 % (42-78); TOTAL CELLS COUNTED 100
[2019-09-04 20:09] LABS: ANISOCYTOSIS 2+; HYPOCHROMASIA 1+; PLATELET COMMENT ADEQUATE
[2019-09-04] MEDS ORDERED: CALCIUM GLUCONATE 1000 MG/10 ML INJ IV ONE (21:24)
--- NOTE | 2019-09-04 21:34 | ER Document Report ---
Doctor's Note Notes: 09/04/19 21:31 The patient has been visited a few times today and his case was discussed at length with him. He had requested I check with [facility] to find out if a lower level of bed would be available since he may no longer require a higher level of care due to the cardiac problem he had when he first came in. I did call [facility], he is on a wait list with about 20 people in front of him at this time, and there are no lower level beds available either. They also felt that if he was changed to a lower level bed, he may get pushed to the back of the line and never get a bed, so keeping him assigned to a higher level of bed may actually facilitate him coming up sooner. The patient has had a total of 4 units of packed cells now since his arrival here on the afternoon of 09/01/2019. He did have a hemoglobin of 7.6 about 6 AM this morning, got 1 unit of blood. 5 hours later CBC showed hemoglobin is 9.6 which is likely an error. The hemoglobin was repeated at 7:30 PM this evening and it is 8.7 which is more likely accurate. The hospitalist service was consulted earlier today to take over his medical management while he remains in the hospital.
[2019-09-04] MEDS ORDERED: ATORVASTATIN CALCIUM 40 MG TABLET PO SCH (22:00)
[2019-09-04] MEDS: METOPROLOL SUCCINATE 25 MG TAB.SR.24H PO SCH (23:59)
[2019-09-05] MEDS ORDERED: CALCIUM GLUCONATE 1000 MG/10 ML INJ IV ONE ×2 (00:06→00:25)
[2019-09-05] MEDS ORDERED: DIPHENHYDRAMINE HCL 25 MG CAPSULE PO ONE (01:37)
[2019-09-05 04:07] LABS: HEMATOCRIT 26.6 % (37.9-51.0); HEMOGLOBIN 8.9 g/dL (13.5-17.0); MEAN CORPUSCULAR HEMOGLOBIN 27.7 pg (27.0-33.4); MEAN CORPUSCULAR HGB CONC 33.6 g/dL (32.0-36.0); MEAN CORPUSCULAR VOLUME 82 fl (80-97); PLATELET COUNT 185 10^3/uL (150-450); RED BLOOD COUNT 3.23 10^6/uL (4.35-5.55); RED CELL DISTRIBUTION WIDTH 18.5 % (11.5-14.0)
[2019-09-05 04:32] LABS: ANION GAP 8 (5-19); BLOOD UREA NITROGEN 27 mg/dL (7-20); CALCIUM 8.8 mg/dL (8.4-10.2); CARBON DIOXIDE 28 mmol/L (22-30); CHLORIDE 102 mmol/L (98-107); CREATINE KINASE 23 U/L (55-170); GLUCOSE 100 mg/dL (75-110); POTASSIUM 4.1 mmol/L (3.6-5.0)
[2019-09-05] MEDS: ALLOPURINOL 100 MG TABLET PO SCH (09:47)
[2019-09-05] MEDS: FUROSEMIDE 40 MG TABLET PO SCH (09:47)
[2019-09-05] MEDS: DILTIAZEM HCL 30 MG TABLET PO SCH ×3 (09:48→19:06)
[2019-09-05] MEDS: PANTOPRAZOLE SODIUM 40 MG TABLET.DR PO SCH ×2 (09:48→19:06)
[2019-09-05] MEDS: FLUDROCORTISONE ACETATE 0.1 MG TABLET PO SCH (09:49)
[2019-09-05] MEDS: DOXAZOSIN MESYLATE 1 MG TABLET PO SCH (09:49)
--- NOTE | 2019-09-05 14:48 | PDOC PROGRESS REPORT ---
Subjective Progress Note for:: 09/05/19 Subjective:: OSCAR JOHN is a 74 year old male past medical history of CAD status post CABG and stent placement, hyperlipidemia, hypertension, prostate cancer status post seed implantation and external beam radiation, ulcerative colitis post total colectomy with ileostomy 2017, intestinal AVM with multiple cauterization in the past and depression. Patient was brought into ED by EMS complaining of shortness of breath, lightheadedness for the last couple of days. He was noted to be severely anemic, started on PRBC transfusion and arrangements has been made for him to be transferred to [facility]. While waiting to be transferred to [facility] hospitalist consulted for medical management. 09/05/2019. No acute events overnight. Comfortably resting in bed in no apparent distress, denying any chest pain, nausea, vomiting, shortness of breath. Denies having any recurrence of bleeding. Patient is stating that he was told that he might get transferred to [place] today. Reason For Visit: DIFFICULTY BREATHING Physical Exam Vital Signs: Temp Pulse Resp BP Pulse Ox 97.8 F 71 16 129/67 H 96 09/05/19 09:51 09/05/19 09:51 09/05/19 09:51 09/05/19 09:51 09/05/19 09:51 Intake & Output 09/04/19 09/05/19 09/06/19 06:59 06:59 06:59 Intake Total 300 Balance 300 General appearance: PRESENT: morbidly obese Head exam: PRESENT: atraumatic, normocephalic Respiratory exam: PRESENT: clear to auscultation lasha. ABSENT: rales, rhonchi, wheezes Cardiovascular exam: PRESENT: irregular rhythm. ABSENT: diastolic murmur, rubs, systolic murmur GI/Abdominal exam: PRESENT: normal bowel sounds, soft. ABSENT: distended, guarding, mass, organolmegaly, rebound, tenderness Neurological exam: PRESENT: alert, awake, oriented to person, oriented to place, oriented to time, oriented to situation, CN II-XII grossly intact. ABSENT: motor sensory deficit Results Laboratory Results: 09/05/19 03:45 09/05/19 03:45 09/04/19 09/04/19 09/05/19 18:39 19:30 03:45 WBC 4.7 6.0 RBC 3.15 L 3.23 L Hgb 8.7 L 8.9 L Hct 25.7 L 26.6 L MCV 82 82 MCH 27.7 27.7 MCHC 34.0 33.6 RDW 18.4 H 18.5 H Plt Count 181 185 Seg Neutrophils % Not Reportable Sodium 138.2 Potassium 3.6 Chloride 100 Carbon Dioxide 28 Anion Gap 10 BUN 25 H Creatinine 1.65 H Est GFR ( Amer) 50 L Glucose 121 H Calcium 8.3 L 09/05/19 03:45 WBC RBC Hgb Hct MCV MCH MCHC RDW Plt Count Seg Neutrophils % Sodium 138.3 Potassium 4.1 Chloride 102 Carbon Dioxide 28 Anion Gap 8 BUN 27 H Creatinine 1.61 H Est GFR ( Amer) 51 L Glucose 100 Calcium 8.8 09/01/19 09/01/19 09/01/19 14:44 14:44 18:06 Creatine Kinase < 20 L CK-MB (CK-2) 0.70 Troponin I 0.075 0.129 09/02/19 09/04/19 09/04/19 03:08 19:30 19:30 Creatine Kinase 28 L CK-MB (CK-2) Troponin I 0.219 0.077 09/05/19 09/05/19 03:45 03:45 Creatine Kinase 23 L CK-MB (CK-2) Troponin I 0.092 Impressions: Chest X-Ray 09/01/19 13:39 IMPRESSION: HEART ENLARGED WITHOUT FAILURE. NO OTHER SIGNIFICANT RADIOGRAPHIC FINDING IN THE CHEST. Assessment and Plan - Diagnosis (1) Acute blood loss anemia Is this a current diagnosis for this admission?: Yes Plan: H&H is stable. Most likely due to multiple intestinal AVM. Hold antiplatelets, hold anticoagulants. Monitor H&H. Supportive transfusion. Goal of hemoglobin 9 to 10 A/dL given history of CAD. (2) CKD (chronic kidney disease) Qualifiers: Chronic kidney disease stage: stage 3 (moderate) Qualified Code(s): N18.3 - Chronic kidney disease, stage 3 (moderate) Is this a current diagnosis for this admission?: Yes Plan: Creatinine trending down. Creatinine stable. Creatinine on admission 1.88. Baseline creatinine 1-2. Monitor volume status and electrolytes replace as needed. Daily BMP. Avoid nephrotoxic meds. (3) Acquired arteriovenous malformation of small intestine Is this a current diagnosis for this admission?: Yes Plan: History of multiple AVMs status post multiple endoscopies and cauterization. Patient is pending transfer to [facility]. Plan as above. (4) CAD (coronary artery disease) Qualifiers: Coronary Disease-Associated Artery/Lesion type: bypass graft, autologous artery Is this a current diagnosis for this admission?: Yes Plan: Status post multiple stent placement in 2010. Has not had any recent stress test. Patient was noted to have elevated troponins on 09/01/2019 at 0.075, 0.129, 0.219 which as per patient was attributed to one episode of atrial flutter. Repeat troponins are trending down. Patient denies any anginal symptoms. Discussed with ED attending if this could be ACS, he does not think this is ACS, could be A. fib RVR and anemia. Trend troponins, PRN nitroglycerin, PRN morphine, beta-blockers, statins. Hold antiplatelets due to acute GI bleed. (5) H/O aortic valve replacement Is this a current diagnosis for this admission?: Yes Plan: History of bioprosthetic aortic valve replacement in 2018. (6) Atrial flutter Qualifiers: Atrial flutter type: unspecified Qualified Code(s): I48.92 - Unspecified atrial flutter Is this a current diagnosis for this admission?: Yes Plan: Patient had one episode of atrial flutter while in ED. Was a started on Cardizem drip. Currently in this rhythm. Continue beta-blockers. Continue telemetry. PRN metoprolol. (7) Elevated troponin Is this a current diagnosis for this admission?: Yes Plan: History of CAD. Status post multiple stent placement 2010. Not sure if elevated troponins are due to acute coronary syndrome or due to atrial flutter complicated by underlying severe anemia. Patient is denying any chest pain and EKG has no acute changes. Patient was noted to have elevated troponins on 09/01/2019 at 0.075, 0.129, 0.219 which as per patient was attributed to one episode of atrial flutter. Repeat troponins are trending down. Patient denies any anginal symptoms. Discussed with ED attending if this could be ACS, he does not think this is ACS, could be A. fib RVR and anemia. Trend troponins, PRN nitroglycerin, PRN morphine, beta-blockers, statins. Hold antiplatelets due to acute GI bleed.
[2019-09-05 16:17] LABS: HEMATOCRIT 25.9 % (37.9-51.0); HEMOGLOBIN 8.7 g/dL (13.5-17.0); MEAN CORPUSCULAR HEMOGLOBIN 27.7 pg (27.0-33.4); MEAN CORPUSCULAR HGB CONC 33.6 g/dL (32.0-36.0); MEAN CORPUSCULAR VOLUME 82 fl (80-97); PLATELET COUNT 179 10^3/uL (150-450); RED BLOOD COUNT 3.14 10^6/uL (4.35-5.55); RED CELL DISTRIBUTION WIDTH 18.4 % (11.5-14.0); WHITE BLOOD COUNT 4.7 10^3/uL (4.0-10.5)
[2019-09-05 16:43] LABS: ABSOLUTE LYMPHOCYTES# (MANUAL) 1.3 10^3/uL (0.5-4.7); BAND NEUTROPHILS % (MANUAL) 6 % (3-5); BASOPHILS % (MANUAL) 1 % (0-2); EOSINOPHILS % (MANUAL) 7 % (0-6); LYMPHOCYTES % (MANUAL) 28 % (13-45); METAMYELOCYTES % (MANUAL) 1 % (0-1); MONOCYTES % (MANUAL) 0 % (3-13); NUCLEATED RED BLOOD CELLS 4 /100 WBC (0); SEGMENTED NEUTROPHILS % (MAN) 57 % (42-78); TOTAL CELLS COUNTED 100
[2019-09-05 16:44] LABS: ANISOCYTOSIS 2+; OVALOCYTES 1+; POIKILOCYTOSIS 1+; TEAR DROP CELLS SLIGHT
[2019-09-05 16:45] LABS: PLATELET COMMENT ADEQUATE
[2019-09-05 19:30] VITALS: BP 164/46
--- NOTE | 2019-09-06 17:41 | EKG REPORT ---
SEVERITY:- ABNORMAL ECG - SINUS RHYTHM FIRST DEGREE AV BLOCK RIGHT BUNDLE BRANCH BLOCK : Confirmed by: Marina George 06-Sep-2019 17:41:11
== END 2019-09-05 19:50 | disposition short-term general hospital (02) ==
LOC: ER 13:34
DX: K92.2 Gastrointestinal hemorrhage, unspecified (principal); D64.9 Anemia, unspecified; I48.92 Unspecified atrial flutter; I45.10 Unspecified right bundle-branch block; R06.02 Shortness of breath; R42 Dizziness and giddiness; R63.0 Anorexia; R07.89 Other chest pain; R60.0 Localized edema; R79.89 Other specified abnormal findings of blood chemistry; I25.10 Atherosclerotic heart disease of native coronary artery without angina pectoris; I10 Essential (primary) hypertension; I25.2 Old myocardial infarction; Z98.890 Other specified postprocedural states; Z85.46 Personal history of malignant neoplasm of prostate; Z92.3 Personal history of irradiation; Z87.891 Personal history of nicotine dependence; Z95.2 Presence of prosthetic heart valve; Z95.5 Presence of coronary angioplasty implant and graft; Z95.0 Presence of cardiac pacemaker; Z93.3 Colostomy status; Z75.1 Person awaiting admission to adequate facility elsewhere
CPT/HCPCS: 93005 ×2; 96376; 99291; 99292; 96361; 96375; 96365; 96366; 86900; 86901; 36415; 87040; 82553; 36430; 86850; 82962; 82550; 85025; 85027; 85610; 80048; 80053; 81001; 84484; 86920; 71045; 93010 ×2; P9016; A9270 ×28; J0610; J3490 ×2; J7030; J7050 ×2; J7040; J0153

== ENCOUNTER 2019-09-22 07:00 | Day surgery (SDC) | payer MEDICARE, OTHER ==
[~2019-09-22 07:00] MED LIST changes: +CEFAZOLIN 1 GM/D5W RTU 1 GM/50 ML RTUPB IV PRN; -DIPHENHYDRAMINE HCL 25 MG CAPSULE PO PRN; -FUROSEMIDE INJ/PF 20 MG/2 ML SDV IV PRN
[2019-09-22] MEDS ORDERED: CEFAZOLIN SODIUM 1 GM in DEXTROSE 5%-WATER 50 ML IV PRN (07:31)
[2019-09-22 07:52] LABS: HEMATOCRIT 23.3 % (37.9-51.0); MEAN CORPUSCULAR HEMOGLOBIN 27.2 pg (27.0-33.4); MEAN CORPUSCULAR HGB CONC 32.9 g/dL (32.0-36.0); MEAN CORPUSCULAR VOLUME 83 fl (80-97); PLATELET COUNT 182 10^3/uL (150-450); RED BLOOD COUNT 2.82 10^6/uL (4.35-5.55); WHITE BLOOD COUNT 6.1 10^3/uL (4.0-10.5)
[2019-09-22] MEDS ORDERED: FENTANYL CITRATE INJ/PF 100 MCG/2 ML AMPUL ONE (07:53)
[2019-09-22] MEDS ORDERED: LIDOCAINE 0.5% INJ-PF (5 MG/ML) 50 ML SDV ONE (07:53)
[2019-09-22] MEDS ORDERED: MIDAZOLAM 2 MG/2 ML INJ ONE (07:53)
[2019-09-22] MEDS ORDERED: BACITRACIN INJ 50,000 UNIT VIAL ONE (07:54)
[2019-09-22 08:13] LABS: HEMOGLOBIN 7.7 g/dL (13.5-17.0)
--- NOTE | 2019-09-22 08:23 | RADIOLOGY REPORT (SQ) ---
EXAM DESCRIPTION: CHEST SINGLE VIEW COMPLETED DATE/TIME: 09/22/2019 7:23 am REASON FOR STUDY: PRE OP C18.2 MALIGNANT NEOPLASM OF ASCENDING COLON K51.919 ULCERATIVE COLITIS, U NSP WITH UNSPECIFIED COMPLICATI COMPARISON: 09/01/2019 NUMBER OF VIEWS: One view. TECHNIQUE: Single frontal radiographic view of the chest acquired. LIMITATIONS: None. FINDINGS: LUNGS AND PLEURA: Chronic interstitial changes. No infiltrate or edema. MEDIASTINUM AND HILAR STRUCTURES: Stable. HEART AND VASCULAR STRUCTURES: Heart enlarged without failure. Normal vasculature. BONES: No acute findings. HARDWARE: CABG. Pacemaker. OTHER: No other significant finding. IMPRESSION: HEART ENLARGED WITHOUT FAILURE. NO OTHER SIGNIFICANT RADIOGRAPHIC FINDING IN THE CHEST. TECHNICAL DOCUMENTATION: JOB ID: [id number] [employer]- All Rights Reserved Reading location - IP/workstation name: [email or web address]
--- NOTE | 2019-09-22 09:37 | Operative Report ---
Nonrecallable Operative Report DATE OF SURGERY: 09/22/19 PREOPERATIVE DIAGNOSIS: colon cancer POSTOPERATIVE DIAGNOSIS: colon cancer OPERATION: Port-A-Cath placement left chest SURGEON: PATRICIA WRIGHT ANESTHESIA: Local TISSUE REMOVED OR ALTERED: None COMPLICATIONS: None ESTIMATED BLOOD LOSS: 2 cc INTRAOPERATIVE FINDINGS: See note PROCEDURE: Patient was brought to the catheterization lab awake alert stable condition placed on the catheterization table in supine position After appropriate timeout site verification procedure commenced. The left chest and neck were prepped and draped in usual sterile fashion. The subclavian area was anesthetized with 1% lidocaine plain. Using a micropuncture needle the left subclavian vein was accessed. The wire was placed through the needle into the superior cava confirmed on fluoroscopy Over the wire the tear-away introducer dilator was placed under direct vision using fluoroscopy The catheter was then placed through the tear-away introducer which was torn away. The tip of the catheter was confirmed the superior vena cava just above the right atrium. A tunnel maker was then utilized from the subclavian stick site to a an incision that was made on the left anterior chest wall with a 15 blade. The catheter was tunneled through to the port pocket fashion on the left anterior chest wall. The catheter was attached to the port. Flushed and withdrew easily. The port pocket was then closed with interrupted placed 3-0 Vicryl sutures in the subcutaneous tissue and the skin was closed with intracuticular 3-0 Vicryl. The port was heparinized with a heparinized saline solution. Steri-Strips completed the procedure estimated blood loss was less than 2 cc sponge and needle counts were correct x2 patient was then transferred recovery in stable condition
--- NOTE | 2019-09-22 09:39 | Discharge Summary ---
Discharge Summary (SDC) - Discharge Final Diagnosis: Colon cancer Date of Surgery: 09/22/19 Discharge Date: 09/22/19 Condition: Good Referrals: ALEISHA FONG MD [Primary Care Provider] - Discharge Diet: As Tolerated Discharge Activity: Activity As Tolerated Report the Following to Your Physician Immediately: Shortness of Breath - Patient needs a follow-up with me in 7 to 10 days, Unusual Bleeding
[2019-09-22 11:09] VITALS: BP 153/56
--- NOTE | 2019-09-22 11:29 | RADIOLOGY REPORT (SQ) ---
EXAM DESCRIPTION: PORTACATH INSERTION COMPLETED DATE/TIME: 09/22/2019 9:21 am REASON FOR STUDY: C18.2 COLON CA, K51.919 COLITIS C18.2 MALIGNANT NEOPLASM OF ASCENDING COLON K51.9 19 ULCERATIVE COLITIS, UNSP WITH UNSPECIFIED COMPLICATI COMPARISON: None. FLUOROSCOPY TIME: 2.1 minutes 179 images saved to PACS. TECHNIQUE: Intra-operative images acquired during surgical procedure to evaluate progress. NUMBER OF IMAGES: 179 LIMITATIONS: None. FINDINGS: Selected images from left-sided port placement. Tip overlies SVC. IMPRESSION: IMAGE(S) OBTAINED DURING PROCEDURE. COMMENT: Quality ID [id number]: Final reports for procedures using fluoroscopy that document radiation exp osure indices, or exposure time and number of fluorographic images (if radiation exposure indices are not available) Please consult full operative report of the attending physician for description of the procedure. TECHNICAL DOCUMENTATION: JOB ID: [id number] [employer]- All Rights Reserved Reading location - IP/workstation name: [email or web address]
== END 2019-09-22 10:40 | disposition home or self-care (01) ==
LOC: CCL 07:00
PROVIDERS: ATTEND Surgery
DX: C18.2 Malignant neoplasm of ascending colon (principal); K51.919 Ulcerative colitis, unspecified with unspecified complications; E78.00 Pure hypercholesterolemia, unspecified; Z95.5 Presence of coronary angioplasty implant and graft; G47.30 Sleep apnea, unspecified; I25.2 Old myocardial infarction; C61 Malignant neoplasm of prostate; I10 Essential (primary) hypertension; F17.210 Nicotine dependence, cigarettes, uncomplicated; Z79.899 Other long term (current) drug therapy
CPT/HCPCS: 36415; 85027; 36561; 77001; 71045; C1752; C1788; Q9967; J2250; J3490 ×2; J0690; J3010; J7060; J1644

== ENCOUNTER 2019-10-22 10:48 | Outpatient (CLI) | payer MEDICARE, OTHER ==
[~2019-10-22 10:48] MED LIST changes: -ACETAMINOPHEN 325 MG TABLET PO PRN; -CEFAZOLIN 1 GM/D5W RTU 1 GM/50 ML RTUPB IV PRN; +[UNRECOGNIZED DRUG - OTHER] IM PRN
[2019-10-22 11:01] VITALS: BP 130/60
== END 2019-10-22 11:20 | disposition home or self-care (01) ==
LOC: II 10:48 → 5TH 10:50 → II 11:20
PROVIDERS: ATTEND Internal Medicine Hematology & Oncology
DX: C18.2 Malignant neoplasm of ascending colon (principal); K51.919 Ulcerative colitis, unspecified with unspecified complications
CPT/HCPCS: 96372; J2353

== ENCOUNTER 2019-10-24 04:55 | Emergency (ER) | payer MEDICARE, OTHER ==
[2019-10-24 08:55] LABS: HEMATOCRIT 25.4 % (37.9-51.0); HEMOGLOBIN 8.4 g/dL (13.5-17.0); MEAN CORPUSCULAR HEMOGLOBIN 26.7 pg (27.0-33.4); MEAN CORPUSCULAR HGB CONC 33.2 g/dL (32.0-36.0); MEAN CORPUSCULAR VOLUME 80 fl (80-97); PLATELET COUNT 212 10^3/uL (150-450); RED BLOOD COUNT 3.16 10^6/uL (4.35-5.55); RED CELL DISTRIBUTION WIDTH 20.6 % (11.5-14.0); WHITE BLOOD COUNT 6.3 10^3/uL (4.0-10.5)
[2019-10-24 09:00] LABS: INTERNATIONAL RATION (INR) 1.09; PROTHROMBIN TIME 14.1 SEC (11.4-15.4)
[2019-10-24 09:02] LABS: PARTIAL THROMBOPLASTIN TIME 86.5 SEC (23.5-35.8)
[2019-10-24 09:39] LABS: ABSOLUTE LYMPHOCYTES# (MANUAL) 2.1 10^3/uL (0.5-4.7); ABSOLUTE MONOCYTES # (MANUAL) 0.1 10^3/uL (0.1-1.4); BASOPHILS % (MANUAL) 2 % (0-2); EOSINOPHILS % (MANUAL) 7 % (0-6); LYMPHOCYTES % (MANUAL) 32 % (13-45); MONOCYTES % (MANUAL) 2 % (3-13); NUCLEATED RED BLOOD CELLS 4 /100 WBC (0); SEGMENTED NEUTROPHILS % (MAN) 41 % (42-78); TOTAL CELLS COUNTED 100
[2019-10-24 09:41] LABS: ANISOCYTOSIS 2+; HYPOCHROMASIA SLIGHT; OVALOCYTES 1+; PLATELET COMMENT ADEQUATE; POLYCHROMASIA 1+; TEAR DROP CELLS 1+
[2019-10-24 09:42] LABS: BAND NEUTROPHILS % (MANUAL) 15 % (3-5)
[2019-10-24] MEDS ORDERED: OXYMETAZOLINE HCL 0.05% NASAL SPRAY 15 ML BOTTLE NASL ONE (09:57)
--- NOTE | 2019-10-24 10:47 | ER Document Report ---
ED General - General Chief Complaint: Nose Bleed Stated Complaint: SPITTING BLOOD AND NOSE BLEED Time Seen by Provider: 10/24/19 08:06 Primary Care Provider: MELITA MYERS MD [Primary Care Provider] - Follow up as needed TRAVEL OUTSIDE OF THE [place] IN LAST 30 DAYS: No - HPI Notes: 74-year-old gentleman presents with nosebleed intermittently within the last 12 hours. Left nostril bleeding. No trauma. Not currently on anticoagulants. Patient has a previous history of cancer of the colon/rectum and is had a colectomy. He also has a history of gastrointestinal AVMs with recurrent occult bleeding requiring frequent transfusion. Patient also has a history of aortic valve replacement with a tissue valve. - Related Data Allergies/Adverse Reactions: No Known Allergies Allergy (Verified 10/24/19 05:05) Past Medical History - General Information source: Patient - Social History Smoking Status: Never Smoker Family History: DM Patient has suicidal ideation: No Patient has homicidal ideation: No - Past Medical History Cardiac Medical History: Reports: Hx Coronary Artery Disease, Hx Heart Attack - 2010, Hx Hypercholesterolemia, Hx Hypertension Pulmonary Medical History: Denies: Hx Asthma, Hx Bronchitis, Hx COPD, Hx Pneumonia Neurological Medical History: Denies: Hx Cerebrovascular Accident, Hx Seizures Renal/ Medical History: Denies: Hx Peritoneal Dialysis Malignancy Medical History: Reports Hx Prostate Cancer - Treated with radiation seed implantation, and external beam radiation GI Medical History: Reports: Hx Ulcerative Colitis Musculoskeletal Medical History: Denies Hx Arthritis Psychiatric Medical History: Reports: Hx Depression Infectious Medical History: Past Surgical History: Reports: Hx Abdominal Surgery - Total colectomy with ileostomy in December 2017, Hx Appendectomy, Hx Cardiac Surgery - pacemaker, Hx Colostomy, Hx Coronary Stent - X3, Hx Open Heart Surgery - run blood gas aortic valve replacement September 2017 - Immunizations Hx Diphtheria, Pertussis, Tetanus Vaccination: Yes Hx Pneumococcal Vaccination: 08/26/12 Review of Systems - Review of Systems Notes: Constitutional: Negative for fever. HENT: As per HPI Eyes: Negative for visual changes. Cardiovascular: Negative for chest pain. Respiratory: Negative for shortness of breath. Gastrointestinal: Negative for abdominal pain, vomiting or diarrhea. Genitourinary: Negative for dysuria. Musculoskeletal: Negative for back pain. Skin: Negative for rash. Neurological: Negative for headaches, weakness or numbness. 10 point ROS negative except as marked above and in HPI. Physical Exam - Vital signs Vitals: Temp Pulse Resp BP Pulse Ox 98.0 F 78 20 140/55 H 96 10/24/19 05:04 10/24/19 05:04 10/24/19 05:04 10/24/19 05:04 10/24/19 05:04 - Notes Notes: GENERAL: Well-developed well-nourished appearing in no acute distress. SKIN: Good turgor no rashes. HEAD: Normocephalic atraumatic. EYES: PERRLA. EOMI. Conjunctivae and sclerae clear. EARS: CANALS AND TMS CLEAR. NOSE: Patient has a gauze packing that he placed in the left nare. I have rem ene this and there is some crusted blood present but no evidence of any active bleeding. He spit out some large clots. I have observed him for several minutes and do not see any recurrence of any bleeding down the posterior pharynx. MOUTH: Moist mucosa. Good dentition. No stridor or edema. No drooling. NECK: Supple. No masses or thyromegaly. No adenopathy. Carotids 2+ without bruits. No JVD. BACK: Symmetrical without tenderness. CHEST: Respirations unlabored. Breath sounds clear and symmetrical. HEART: Regular rhythm. No murmur gallop or rub. ABDOMEN: Colostomy present right lower quadrant. Soft nontender without masses, organomegaly or rebound. Bowel sounds normally active. No bruits. GENITALIA: Deferred. EXTREMITIES: No edema. No calf tenderness. Cap refill less than 1.5 seconds. Dorsalis pedis and posterior tibial pulses 3+ and symmetrical. NEUROLOGICAL: GCS 15. Alert and oriented x3. Normal gait. Fluent speech. Cranial nerves II through XII intact. Sensorimotor and cerebellar normal. Normal tone. PSYCHIATRIC: Appropriate affect. Course - Re-evaluation Re-evalutation: 10/24/19 10:47 Patient indicates he usually runs about 9-9.5 on his hemoglobin. I do not think he needs transfusion at the moment. I do not see any recurrence of bleeding at this time and therefore I did not recommend packing the nose. We talked about routine management of epistaxis. I gave him a prescription for Afrin spray. We recommended use of a coolmist humidifier in his bedroom. He should avoid nose blowing. He may follow-up with his primary care provider and ENT PRN. - Vital Signs Vital signs: Temp Pulse Resp BP Pulse Ox 97.6 F 67 16 143/66 H 96 10/24/19 09:07 10/24/19 09:07 10/24/19 09:07 10/24/19 09:07 10/24/19 09:07 - Laboratory Result Diagrams: 10/24/19 08:40 Laboratory results interpreted by me: 10/24/19 10/24/19 08:40 08:40 RBC 3.16 L Hgb 8.4 L Hct 25.4 L MCH 26.7 L RDW 20.6 H Seg Neuts % (Manual) 41 L Band Neutrophils % 15 H Monocytes % (Manual) 2 L Eosinophils % (Manual) 7 H APTT 86.5 H Discharge - Discharge Clinical Impression: Epistaxis Condition: Stable Disposition: HOME, SELF-CARE Additional Instructions: Nosebleed Instructions There is a significant chance of re-bleeding following a nosebleed. Proper care makes this less likely. Do not touch the nose for 24 hours. Do not blow the nose forcefully for one week. After 24 hours, gently apply Vaseline ointment to both nostrils with the tip of a finger, three times a day, for one week. It's normal to have a bloody mucous discharge for a few days. If active bleeding recurs, blow all the blood from the nose, then sit quietly and pinch the nose as firmly as possible for 10 minutes. If this does not stop the bleeding, return for further care. If packing was left in the nose and it starts to come out of the nostril, either tuck it back in or cut it off. Don't pull it out. Return for recheck and removal of the packing when instructed. Persons with frequent nosebleeds should avoid aspirin (unless prescribed for another reason). Humidity in the bedroom, and petroleum jelly applied to the nostrils at night may help. Return here as needed for new or worsening symptoms. Use nasal spray in left nostril 3 times daily 2 puffs. Prescriptions: Oxymetazoline HCl [Afrin 0.05% Nasal [place] 15 ml Bottle] 30 spray NAREB TID 3 Days #1 bottle Referrals: MELITA MYERS MD [Primary Care Provider] - Follow up as needed
[2019-10-24 10:54] VITALS: BP 131/66
== END 2019-10-24 11:00 | disposition home or self-care (01) ==
LOC: ER 04:55
DX: R04.0 Epistaxis (principal); I25.10 Atherosclerotic heart disease of native coronary artery without angina pectoris; I10 Essential (primary) hypertension; Z85.46 Personal history of malignant neoplasm of prostate; Z85.048 Personal history of other malignant neoplasm of rectum, rectosigmoid junction, and anus; Z92.3 Personal history of irradiation; Z93.3 Colostomy status; Z90.49 Acquired absence of other specified parts of digestive tract
CPT/HCPCS: 36591; 99283; 36415; 85025; 85610; 85730; A9270; J1642; J3490

== ENCOUNTER 2019-11-16 14:21 | Emergency (ER) | payer MEDICARE, OTHER ==
[2019-11-16] MEDS ORDERED: ASPIRIN 81 MG TABLET, CHEWABLE PO ONE (15:11)
[2019-11-16] MEDS ORDERED: NORMAL SALINE 1000 ML 500 ML IV ONE (15:12)
--- NOTE | 2019-11-16 15:20 | ER Document Report ---
ED Cardiac - General Chief Complaint: Irregular Pulse Stated Complaint: TACHYCARDIA Time Seen by Provider: 11/16/19 14:39 Primary Care Provider: MELITA MYERS MD [ACTIVE STAFF] - Follow up as needed Notes: Patient presents with chest pain and shortness of breath. Per EMS his heart rate was approximately 170. He is due to have a blood transfusion tomorrow at the oncology clinic. He has a port in the left anterior chest. He also has a pacemaker. He is on metoprolol. Chest pain and shortness of breath resolved on its own in route. Patient has had no aspirin. Patient tells me he has been treated for colon cancer and prostate cancer. He says the reason for the blood transfusion is his AV malformations. Patient denies any chest pain or shortness of breath currently. His heart rate is approximately 130. No other complaints. TRAVEL OUTSIDE OF THE [place] IN LAST 30 DAYS: No - Related Data Allergies/Adverse Reactions: No Known Allergies Allergy (Verified 10/24/19 05:05) Past Medical History - General Information source: Patient - Social History Smoking Status: Unknown if Ever Smoked Family History: DM Patient has suicidal ideation: No Patient has homicidal ideation: No - Past Medical History Cardiac Medical History: Reports: Hx Coronary Artery Disease, Hx Heart Attack - 2010, Hx Hypercholesterolemia, Hx Hypertension Pulmonary Medical History: Denies: Hx Asthma, Hx Bronchitis, Hx COPD, Hx Pneumonia Neurological Medical History: Denies: Hx Cerebrovascular Accident, Hx Seizures Renal/ Medical History: Denies: Hx Peritoneal Dialysis Malignancy Medical History: Reports Hx Prostate Cancer - Treated with radiation seed implantation, and external beam radiation GI Medical History: Reports: Hx Ulcerative Colitis Musculoskeletal Medical History: Denies Hx Arthritis Psychiatric Medical History: Reports: Hx Depression Infectious Medical History: Past Surgical History: Reports: Hx Abdominal Surgery - Total colectomy with ileostomy in December 2017, Hx Appendectomy, Hx Cardiac Surgery - pacemaker, Hx Colostomy, Hx Coronary Stent - X3, Hx Open Heart Surgery - run blood gas aortic valve replacement September 2017 - Immunizations Hx Diphtheria, Pertussis, Tetanus Vaccination: Yes Hx Pneumococcal Vaccination: 08/26/12 Review of Systems - Review of Systems Cardiovascular: Chest pain, Palpitations Respiratory: Short of breath. denies: Hemoptysis -: Yes All other systems reviewed and negative Physical Exam - Vital signs Vitals: Temp Pulse Resp Pulse Ox 98.1 F 140 H 27 H 98 11/16/19 14:55 11/16/19 14:55 11/16/19 14:55 11/16/19 14:55 Interpretation: Tachycardic - General General appearance: Appears well - HEENT Head: Normocephalic Mucous membranes: Normal - Respiratory Respiratory status: No respiratory distress Breath sounds: Normal - Cardiovascular Rhythm: Regular, Tachycardia Murmur: No - Abdominal Inspection: Normal Bowel sounds: Normal Tenderness: Nontender - Back Back: Normal - Extremities General upper extremity: Normal inspection, Normal ROM General lower extremity: Normal inspection, Normal ROM - Neurological Neuro grossly intact: Yes Orientation: AAOx4 Speech: Normal - Psychological Associated symptoms: Normal affect, Normal mood - Skin Skin Temperature: Warm Skin Moisture: Dry Course - Re-evaluation Re-evalutation: 11/16/19 15:21 Patient signed out AGAINST MEDICAL ADVICE. He declines blood transfusion or any other tests or treatments because he says he feels better and he wants to go home. He understands that he may end up dying from this decision. He will return at once if he changes his mind and agrees to be treated. - Vital Signs Vital signs: Temp Pulse Resp BP Pulse Ox 98.1 F 140 H 27 H 98 11/16/19 14:55 11/16/19 14:55 11/16/19 14:55 11/16/19 14:55 Discharge - Discharge Clinical Impression: Tachycardia Chest pain Qualifiers: Chest pain type: chest pain on breathing Qualified Code(s): R07.1 - Chest pain on breathing; R07.81 - Pleurodynia Condition: Serious Disposition: AGAINST MEDICAL ADVICE Referrals: MELITA MYERS MD [ACTIVE STAFF] - Follow up as needed
--- NOTE | 2019-11-16 21:32 | EKG REPORT ---
SEVERITY:- ABNORMAL ECG - SUPRAVENTRICULAR TACHYCARDIA RBBB AND LPFB : Confirmed by: Petey Petty MD 16-Nov-2019 21:31:58
== END 2019-11-16 15:24 | disposition left against medical advice (07) ==
LOC: ER 14:21
DX: R00.0 Tachycardia, unspecified (principal); R07.1 Chest pain on breathing; R07.81 Pleurodynia; R06.02 Shortness of breath; Z95.0 Presence of cardiac pacemaker; Z79.899 Other long term (current) drug therapy; Z93.3 Colostomy status; Z95.4 Presence of other heart-valve replacement
CPT/HCPCS: 93005; 93010; 99285

== ENCOUNTER 2019-11-19 10:50 | Outpatient (CLI) | payer MEDICARE, OTHER ==
[2019-11-19 11:11] VITALS: BP 172/100
== END 2019-11-19 11:14 | disposition home or self-care (01) ==
LOC: II 10:50 → 5TH 10:53 → II 11:14
PROVIDERS: ATTEND Internal Medicine Hematology & Oncology
DX: C18.2 Malignant neoplasm of ascending colon (principal); K51.919 Ulcerative colitis, unspecified with unspecified complications
CPT/HCPCS: 96372; J2353

== ENCOUNTER 2019-12-17 11:01 | Outpatient (CLI) | payer MEDICARE, OTHER ==
[2019-12-17 11:13] VITALS: BP 113/54
== END 2019-12-17 11:23 | disposition home or self-care (01) ==
LOC: II 11:01 → 5TH 11:11 → II 11:23
PROVIDERS: ATTEND Internal Medicine Hematology & Oncology
DX: C18.2 Malignant neoplasm of ascending colon (principal); K51.919 Ulcerative colitis, unspecified with unspecified complications
CPT/HCPCS: 96372; J2353

== ENCOUNTER 2020-01-14 11:00 | Outpatient (CLI) | payer MEDICARE, OTHER ==
[2020-01-14 11:08] VITALS: BP 137/57
== END 2020-01-14 11:15 | disposition home or self-care (01) ==
LOC: II 11:00 → 5TH 11:09 → II 11:15
PROVIDERS: ATTEND Internal Medicine Hematology & Oncology
DX: C18.2 Malignant neoplasm of ascending colon (principal); K51.919 Ulcerative colitis, unspecified with unspecified complications
CPT/HCPCS: 96372; J2353

== ENCOUNTER 2020-02-11 10:54 | Outpatient (CLI) | payer MEDICARE, OTHER ==
[2020-02-11 11:05] VITALS: BP 120/54
== END 2020-02-11 11:10 | disposition home or self-care (01) ==
LOC: II 10:54 → 5TH 10:56 → II 11:10
PROVIDERS: ATTEND Internal Medicine Hematology & Oncology
DX: C18.2 Malignant neoplasm of ascending colon (principal); K51.919 Ulcerative colitis, unspecified with unspecified complications
CPT/HCPCS: 96372; J2353

== ENCOUNTER 2020-03-10 10:51 | Outpatient (CLI) | payer MEDICARE, OTHER ==
[2020-03-10 11:10] VITALS: BP 116/43
== END 2020-03-10 11:14 | disposition home or self-care (01) ==
LOC: II 10:51 → 5TH 10:54 → II 11:14
PROVIDERS: ATTEND Internal Medicine Hematology & Oncology
DX: C18.2 Malignant neoplasm of ascending colon (principal); K51.919 Ulcerative colitis, unspecified with unspecified complications
CPT/HCPCS: 96372; J2353

== ENCOUNTER 2020-03-19 07:25 | Outpatient (CLI) | payer MEDICARE, OTHER ==
[2020-03-18 17:37] LABS: MEAN CORPUSCULAR HEMOGLOBIN 24.4 pg (27.0-33.4); MEAN CORPUSCULAR HGB CONC 31.5 g/dL (32.0-36.0); MEAN CORPUSCULAR VOLUME 78 fl (80-97); PLATELET COUNT 272 10^3/uL (150-450); RED BLOOD COUNT 3.09 10^6/uL (4.35-5.55); RED CELL DISTRIBUTION WIDTH 28.7 % (11.5-14.0); WHITE BLOOD COUNT 7.6 10^3/uL (4.0-10.5)
[2020-03-18 17:38] LABS: HEMOGLOBIN 7.6 g/dL (13.5-17.0)
[~2020-03-19 07:25] MED LIST changes: +ACETAMINOPHEN 325 MG TABLET PO PRN; +DIPHENHYDRAMINE HCL 25 MG CAPSULE PO PRN; +FUROSEMIDE INJ/PF 20 MG/2 ML SDV IV PRN; -[UNRECOGNIZED DRUG - OTHER] IM PRN
[2020-03-19] MEDS ORDERED: NORMAL SALINE 250 ML IV PRN (13:00)
[2020-03-19 13:09] VITALS: BP 131/47
== END 2020-03-19 13:00 | disposition home or self-care (01) ==
LOC: 3W 07:25 → II 07:25
PROVIDERS: ATTEND Internal Medicine Hematology & Oncology
DX: D50.9 Iron deficiency anemia, unspecified (principal)
CPT/HCPCS: 86900; 86901; 36415; 36430; 86850; 86920; P9016; J7050; J1642

== ENCOUNTER 2020-04-07 11:33 | Outpatient (CLI) | payer MEDICARE, OTHER ==
[~2020-04-07 11:33] MED LIST changes: -ACETAMINOPHEN 325 MG TABLET PO PRN; -DIPHENHYDRAMINE HCL 25 MG CAPSULE PO PRN; -FUROSEMIDE INJ/PF 20 MG/2 ML SDV IV PRN; +[UNRECOGNIZED DRUG - OTHER] IM PRN
[2020-04-07 11:39] VITALS: BP 123/62
== END 2020-04-07 12:00 | disposition home or self-care (01) ==
LOC: II 11:33 → 5TH 11:34 → II 12:00
PROVIDERS: ATTEND Internal Medicine Hematology & Oncology
DX: C18.2 Malignant neoplasm of ascending colon (principal); K51.919 Ulcerative colitis, unspecified with unspecified complications
CPT/HCPCS: 96372; J2353

== ENCOUNTER 2020-04-19 15:00 | Emergency (ER) | payer MEDICARE, OTHER ==
--- NOTE | 2020-04-19 15:21 | ER Document Report ---
ED Medical Screen (RME) - General Chief Complaint: Abnormal Lab Results Stated Complaint: ABNORMAL LABS Time Seen by Provider: 04/19/20 15:13 Primary Care Provider: MELITA MYERS MD [Primary Care Provider] - Follow up as needed Mode of Arrival: Wheelchair Information source: Patient Notes: 75-year-old male presented to ED for need of further blood testing. He had abnormal labs and was seen to get 2 units of blood this morning. He states his hemoglobin was 5 before the 2 units and 6 after the 2 units. He states he is also on amoxicillin for his kidneys. He states he is not had any while he has been here today and he does need his amoxicillin. He does have a history of cardiac problems renal problems colon cancer with a colostomy his anus was removed. He also has prostate cancer which was not removed. He has also had multiple retinal surgeries. He is alert oriented respirations regular nonlabored at this time. He states that they were trying to get him transferred to [facility]. I have greeted and performed a rapid initial assessment of this patient. A comprehensive ED assessment and evaluation of the patient, analysis of test results and completion of medical decision making process will be conducted by an additional ED providers. TRAVEL OUTSIDE OF THE [place] IN LAST 30 DAYS: No - Related Data Allergies/Adverse Reactions: No Known Allergies Allergy (Verified 04/19/20 15:12) Home Medications: cardiac. colon ca. colon removed. rectal surgery. prostate ca Past Medical History - Social History Chew tobacco use (# tins/day): No Frequency of alcohol use: None Drug Abuse: None - Past Medical History Cardiac Medical History: Reports: Hx Coronary Artery Disease, Hx Heart Attack - 2010, Hx Hypercholesterolemia, Hx Hypertension Pulmonary Medical History: Denies: Hx Asthma, Hx Bronchitis, Hx COPD, Hx Pneumonia Neurological Medical History: Denies: Hx Cerebrovascular Accident, Hx Seizures Renal/ Medical History: Denies: Hx Peritoneal Dialysis Malignancy Medical History: Reports Hx Prostate Cancer - Treated with radiation seed implantation, and external beam radiation GI Medical History: Reports: Hx Ulcerative Colitis Musculoskeltal Medical History: Denies Hx Arthritis Psychiatric Medical History: Reports: Hx Depression Infectious Medical History: Past Surgical History: Reports: Hx Abdominal Surgery - Total colectomy with ileostomy in December 2017, Hx Appendectomy, Hx Cardiac Surgery - pacemaker, Hx Colostomy, Hx Coronary Stent - X3, Hx Open Heart Surgery - run blood gas aortic valve replacement September 2017 - Immunizations Hx Diphtheria, Pertussis, Tetanus Vaccination: Yes Physical Exam - Vital signs Vitals: Temp Pulse Resp BP Pulse Ox 97.6 F 126 H 20 91/53 L 98 04/19/20 15:06 04/19/20 15:06 04/19/20 15:06 04/19/20 15:06 04/19/20 15:06 Course - Vital Signs Vital signs: Temp Pulse Resp BP Pulse Ox 97.6 F 126 H 20 91/53 L 98 04/19/20 15:12 04/19/20 15:06 04/19/20 15:06 04/19/20 15:06 04/19/20 15:06 Doctor's Discharge - Discharge Referrals: MELITA MYERS MD [Primary Care Provider] - Follow up as needed
[2020-04-19] MEDS ORDERED: AMOXICILLIN TRIHYDRATE 500 MG CAPSULE PO ONE (15:27)
[2020-04-19 16:39] LABS: HEMATOCRIT 20.1 % (37.9-51.0); MEAN CORPUSCULAR HEMOGLOBIN 26.9 pg (27.0-33.4); MEAN CORPUSCULAR HGB CONC 32.8 g/dL (32.0-36.0); MEAN CORPUSCULAR VOLUME 82 fl (80-97); RED BLOOD COUNT 2.45 10^6/uL (4.35-5.55); RED CELL DISTRIBUTION WIDTH 22.4 % (11.5-14.0); WHITE BLOOD COUNT 6.9 10^3/uL (4.0-10.5)
[2020-04-19 16:47] LABS: ALBUMIN 3.3 g/dL (3.5-5.0); ALKALINE PHOSPHATASE 55 U/L (38-126); ANION GAP 9 (5-19); ASPARTATE AMINO TRANSFERASE 29 U/L (17-59); BILIRUBIN,DIRECT 0.5 mg/dL (0.0-0.4); BILIRUBIN,TOTAL 1.6 mg/dL (0.2-1.3); BLOOD UREA NITROGEN 47 mg/dL (7-20); CALCIUM 7.7 mg/dL (8.4-10.2); CARBON DIOXIDE 26 mmol/L (22-30); CHLORIDE 97 mmol/L (98-107); GLUCOSE 112 mg/dL (75-110); TOTAL PROTEIN 6.8 g/dL (6.3-8.2)
[2020-04-19 17:30] LABS: HEMOGLOBIN 6.6 g/dL (13.5-17.0)
[2020-04-19 17:33] LABS: APPEARANCE,URINE CLEAR; BILIRUBIN,URINE NEGATIVE (NEGATIVE); COLOR,URINE YELLOW; GLUCOSE, URINE NEGATIVE (NEGATIVE); KETONES,URINE NEGATIVE (NEGATIVE); LEUKOCYTE ESTERASE,URINE NEGATIVE (NEGATIVE); NITRITE,URINE NEGATIVE (NEGATIVE); PROTEIN,URINE NEGATIVE (NEGATIVE); URINE SPECIFIC GRAVITY 1.015; UROBILINOGEN,URINE NEGATIVE mg/dL (<2.0)
[2020-04-19] MEDS ORDERED: NORMAL SALINE 250 ML IV PRN ×2 (17:43)
[2020-04-19 17:56] LABS: ABSOLUTE LYMPHOCYTES# (MANUAL) 2.3 10^3/uL (0.5-4.7); ABSOLUTE MONOCYTES # (MANUAL) 0.3 10^3/uL (0.1-1.4); BAND NEUTROPHILS % (MANUAL) 2 % (3-5); BASOPHILS % (MANUAL) 1 % (0-2); EOSINOPHILS % (MANUAL) 3 % (0-6); LYMPHOCYTES % (MANUAL) 30 % (13-45); METAMYELOCYTES % (MANUAL) 1 % (0-1); MONOCYTES % (MANUAL) 5 % (3-13); SEGMENTED NEUTROPHILS % (MAN) 38 % (42-78); TOTAL CELLS COUNTED 100
[2020-04-19 17:59] LABS: TOXIC GRANULATION 1+
[2020-04-19 18:00] LABS: ANISOCYTOSIS 3+; HYPOCHROMASIA SLIGHT; PLATELET CLUMPS PRESENT; PLATELET COMMENT ADEQUATE; POIKILOCYTOSIS 3+; POLYCHROMASIA 2+
[2020-04-19 18:01] LABS: HOWELL-JOLLY BODIES PRESENT; OVALOCYTES 2+; SCHISTOCYTES 2+; TEAR DROP CELLS 2+
[2020-04-19 18:02] LABS: BURR CELLS SLIGHT; TARGET CELLS SLIGHT
[2020-04-19 18:03] LABS: NUCLEATED RED BLOOD CELLS 16 /100 WBC (0)
[2020-04-19 18:04] LABS: IMMATURE MONONUCLEAR% (MANUAL) 13 % (0); MYELOCYTES % (MANUAL) 1 % (0); PROMYELOCYTES % (MANUAL) 2 % (0)
[2020-04-19 18:05] LABS: PLATELET COUNT 167 10^3/uL (150-450)
--- NOTE | 2020-04-19 18:21 | ER Document Report ---
Entered by LISA FIERRO SCRIBE 04/19/20 1739 Acting as scribe for:YUE MATT DO ED General - General Chief Complaint: Abnormal Lab Results Stated Complaint: ABNORMAL LABS Time Seen by Provider: 04/19/20 15:13 Primary Care Provider: MELITA MYERS MD [Primary Care Provider] - Follow up as needed Mode of Arrival: Wheelchair Information source: Patient Notes: This 75 year old male patient with a history of ulcerative colitis, prostate cancer, s/p total colectomy presents to the emergency department today with complaints of a hemoglobin of 5.0 yesterday in outpatient labs. He has been getting blood transfusions every other week since May which was recently changed to every week due to AVM. He reports that he has noticed recently that his stools have been black and he has also noticed red blood in his colostomy bag. Patient mentions he has had right flank pain over the last few days and he took a friend's amoxicillin which seemed to help. He denies any urinary symptoms, abdominal pain, or usage of blood thinning medications. TRAVEL OUTSIDE OF THE [place] IN LAST 30 DAYS: No - Related Data Allergies/Adverse Reactions: No Known Allergies Allergy (Verified 04/19/20 15:12) Home Medications: cardiac. colon ca. colon removed. rectal surgery. prostate ca Past Medical History - General Information source: Patient - Social History Smoking Status: Former Smoker Cigarette use (# per day): No Chew tobacco use (# tins/day): No Frequency of alcohol use: None Drug Abuse: None Lives with: Family Family History: Reviewed & Not Pertinent, DM Patient has homicidal ideation: No - Past Medical History Cardiac Medical History: Reports: Hx Coronary Artery Disease, Hx Heart Attack - 2010, Hx Hypercholesterolemia, Hx Hypertension Malignancy Medical History: Reports Hx Prostate Cancer - Treated with radiation seed implantation, and external beam radiation GI Medical History: Reports: Hx Ulcerative Colitis Psychiatric Medical History: Reports: Hx Depression Infectious Medical History: Past Surgical History: Reports: Hx Abdominal Surgery - Total colectomy with ileostomy in December 2017, Hx Appendectomy, Hx Cardiac Surgery - pacemaker, Hx Colostomy, Hx Coronary Stent - X3, Hx Open Heart Surgery - run blood gas aortic valve replacement September 2017 - Immunizations Hx Diphtheria, Pertussis, Tetanus Vaccination: Yes Hx Pneumococcal Vaccination: 08/26/12 Review of Systems - Review of Systems Constitutional: See HPI, Other - low hemoglobin EENT: No symptoms reported Cardiovascular: No symptoms reported Respiratory: No symptoms reported Gastrointestinal: See HPI, Black stools. denies: Abdominal pain Genitourinary: See HPI, Flank pain - right. denies: Burning, Dysuria Male Genitourinary: No symptoms reported Musculoskeletal: No symptoms reported Skin: No symptoms reported Hematologic/Lymphatic: No symptoms reported Neurological/Psychological: No symptoms reported -: Yes All other systems reviewed and negative Physical Exam - Vital signs Vitals: Temp Pulse Resp BP Pulse Ox 97.6 F 126 H 20 91/53 L 98 04/19/20 15:06 04/19/20 15:06 04/19/20 15:06 04/19/20 15:06 04/19/20 15:06 - Notes Notes: Physical Exam: General: Alert, obese. HEENT: Normocephalic. Atraumatic. PERRL. Extraocular movements intact. Oropharynx clear. Neck: Supple. Non-tender. Respiratory: No respiratory distress. Clear and equal breath sounds bilaterally. Cardiovascular: Regular rate and rhythm. Abdominal: Obese. Ostomy in place in LLQ, black stool. Non-tender. No diste nsion. Normal Bowel Sounds. Back: No gross abnormalities. Extremities: Moves all four extremities. Upper extremities: Normal inspection. Normal ROM. Lower extremities: Normal inspection. No edema. Normal ROM. Neurological: Normal cognition. AAOx4. Normal speech. Psychological: Normal affect. Normal Mood. Skin: Warm. Dry. Pale in color. Course - Re-evaluation Re-evalutation: 04/19/20 21:09 MDM Unfortunate 75 year old male arrives with anemia a bit worse than usual. Has known AVM's in small intestine and is status post colectomy with left abd colostomy. Blasts were noted by path on peripheral smear. Due to that he was sent to the ED. He has comorbidities of cad, valvular heart disease and renal insuf as well as morbid obesity. 04/20/20 00:23 Pt is a complex medical pt that unfortunately has new onset leukemia. [facility] is at Capacity and [facility] has no beds. [facility] has been able to accept the pt but due to beds being filled. - Vital Signs Vital signs: Temp Pulse Resp BP Pulse Ox 99.5 F 87 22 H 124/36 L 97 04/19/20 22:24 04/19/20 20:02 04/19/20 22:11 04/19/20 22:11 04/19/20 21:30 - Laboratory Result Diagrams: 04/19/20 15:49 04/19/20 15:49 Laboratory results interpreted by me: 04/19/20 04/19/20 04/19/20 15:49 15:49 15:49 RBC 2.45 L Hgb 6.6 L Hct 20.1 L MCH 26.9 L RDW 22.4 H Seg Neuts % (Manual) 38 L Band Neutrophils % 2 L Myelocytes % 1 H Promyelocytes % 2 H Immature Leukocytes % 13 H Sodium 132.3 L Chloride 97 L BUN 47 H Creatinine 3.73 H Est GFR ( Amer) 19 L Est GFR (MDRD) Non-Af 16 L Glucose 112 H Uric Acid Calcium 7.7 L Phosphorus Total Bilirubin 1.6 H Direct Bilirubin 0.5 H Lactate Dehydrogenase Albumin 3.3 L Crossmatch See Detail 04/19/20 15:49 RBC Hgb Hct MCH RDW Seg Neuts % (Manual) Band Neutrophils % Myelocytes % Promyelocytes % Immature Leukocytes % Sodium Chloride BUN Creatinine Est GFR ( Amer) Est GFR (MDRD) Non-Af Glucose Uric Acid 13.9 H Calcium Phosphorus 5.5 H Total Bilirubin Direct Bilirubin Lactate Dehydrogenase 357 H Albumin Crossmatch - Diagnostic Test Radiology reviewed: Image reviewed, Reports reviewed - EKG Interpretation by Me EKG shows normal: Sinus rhythm - NSR Nl [place] 68 BPM 1st degree av block RBBB no st elevaiton or depression my interpretation. Similar to October 2019 Rate: Normal Rhythm: NSR Discharge - Discharge Clinical Impression: Acute blood loss anemia, Morbid obesity Acute leukemia Qualifiers: Leukemia Active/Remission status: without remission Qualified Code(s): C95.00 - Acute leukemia of unspecified cell type not having achieved remission Iron deficiency anemia Qualifiers: Iron deficiency anemia type: chronic blood loss Qualified Code(s): D50.0 - Iron deficiency anemia secondary to blood loss (chronic) CKD (chronic kidney disease) Qualifiers: Chronic kidney disease stage: stage 3 (moderate) Qualified Code(s): N18.3 - Chronic kidney disease, stage 3 (moderate) Condition: Stable Disposition: Tertiary-Other Referrals: MELITA MYERS MD [Primary Care Provider] - Follow up as needed I personally performed the services described in the documentation, reviewed and edited the documentation which was dictated to the scribe in my presence, and it accurately records my words and actions.
[2020-04-19 19:29] LABS: INTERNATIONAL RATION (INR) 1.17; PROTHROMBIN TIME 15.1 SEC (11.4-15.4)
--- NOTE | 2020-04-19 19:47 | RADIOLOGY REPORT (SQ) ---
EXAM DESCRIPTION: CT ABD/PELVIS NO ORAL OR IV IMAGES COMPLETED DATE/TIME: 04/19/2020 7:28 pm REASON FOR STUDY: anemia/ ho UC blood in ostomy bag COMPARISON: 01/26/2018 TECHNIQUE: CT scan of the abdomen and pelvis performed without intravenous or oral contrast. Images reviewed with lung, soft tissue, and bone windows. Reconstructed coronal and sagittal MPR images revi ewed. All images stored on PACS. All CT scanners at this facility use dose modulation, iterative reconstruction, and/or weight based d osing when appropriate to reduce radiation dose to as low as reasonably achievable (ALARA). [facility]: Dose Right [facility]: CareDose [facility]: Dose Right [facility]: Teradose 4D [facility]: Smart Clinicient RADIATION DOSE: CT Rad equipment meets quality standard of care and radiation dose reduction techniq ues were employed. CTDIvol: 19.1 mGy. DLP: 1057 mGy-cm.mGy. LIMITATIONS: None. FINDINGS: LOWER CHEST: No significant findings. No nodules or infiltrates. NON-CONTRASTED LIVER, SPLEEN, ADRENALS: Evaluation limited by lack of IV contrast. No identified sign ificant masses. PANCREAS: No masses. No peripancreatic inflammatory changes. GALLBLADDER: No identified stones by CT criteria. No inflammatory changes to suggest cholecystitis. RIGHT KIDNEY AND URETER: No suspicious masses. Assessment limited by lack of IV contrast. Renal vas cular calcifications. No hydronephrosis or hydroureter. LEFT KIDNEY AND URETER: No suspicious masses. Assessment limited by lack of IV contrast. Renal vasc ular calcifications. Mild hydronephrosis and hydroureter. No obstructing calculus is seen. AORTA AND RETROPERITONEUM: No aneurysm. No retroperitoneal masses or adenopathy. BOWEL AND PERITONEAL CAVITY: There is an ostomy in the right lower quadrant. Apparent total colectom y. No bowel mass. APPENDIX: Surgically absent. PELVIS, BLADDER, AND ABDOMINAL WALL:No abnormal masses. No free fluid. Bladder normal. BONES: No significant findings. OTHER: No other significant finding. IMPRESSION: Renal vascular calcifications are present. There is mild left hydronephrosis and hydrou reter with no obstructing calculus. Apparent total colectomy. No bowel mass is appreciated. No abn ormal bowel wall thickening is seen. COMMENT: Quality ID # [id number]: Final reports with documentation of one or more dose reduction techniques (e.g., Automated exposure control, adjustment of the mA and/or kV according to patient size, use of iterative reconstruction technique) TECHNICAL DOCUMENTATION: JOB ID: [id number] 2010 [employer]- All Rights Reserved Reading location - IP/workstation name: [email or web address]
--- NOTE | 2020-04-19 19:48 | RADIOLOGY REPORT (SQ) ---
EXAM DESCRIPTION: CHEST SINGLE VIEW IMAGES COMPLETED DATE/TIME: 04/19/2020 7:36 pm REASON FOR STUDY: htn COMPARISON: 09/22/2019 EXAM PARAMETERS: NUMBER OF VIEWS: One view. TECHNIQUE: Single frontal radiographic view of the chest acquired. RADIATION DOSE: NA LIMITATIONS: None. FINDINGS: LUNGS AND PLEURA: Chronic stable mild interstitial changes. No acute pulmonary consolida tion. No pneumothorax or pleural effusion. MEDIASTINUM AND HILAR STRUCTURES: No masses. Contour normal. HEART AND VASCULAR STRUCTURES: Generalized cardiomegaly. Normal vasculature. BONES: No acute findings. HARDWARE: Prior anterior median sternotomy and cardiac pacemaker. OTHER: No other significant finding. IMPRESSION: 1. No significant interval changes since the prior study dated 09/22/2019. Chronic mild stable changes. No acute findings. 2. Generalized cardiomegaly. No evidence for failure. TECHNICAL DOCUMENTATION: JOB ID: [id number] 2010 [employer]- All Rights Reserved Reading location - IP/workstation name: [email or web address]
[2020-04-19 20:49] LABS: PHOSPHORUS 5.5 mg/dL (2.5-4.5); URIC ACID 13.9 mg/dL (3.5-8.5)
[2020-04-19] MEDS ORDERED: HYDROCODONE/ACETAMINOPHEN 5-325 MG TABLET PO ONE (21:41)
[2020-04-20] MEDS ORDERED: NORMAL SALINE 1000 ML 1,000 ML IV ONE (00:16)
[2020-04-20 00:40] LABS: HEMATOCRIT 23.5 % (37.9-51.0); MEAN CORPUSCULAR HEMOGLOBIN 27.5 pg (27.0-33.4); MEAN CORPUSCULAR HGB CONC 33.2 g/dL (32.0-36.0); MEAN CORPUSCULAR VOLUME 83 fl (80-97); PLATELET COUNT 177 10^3/uL (150-450); RED BLOOD COUNT 2.84 10^6/uL (4.35-5.55); RED CELL DISTRIBUTION WIDTH 18.3 % (11.5-14.0); WHITE BLOOD COUNT 6.9 10^3/uL (4.0-10.5)
[2020-04-20 01:10] LABS: ABSOLUTE LYMPHOCYTES# (MANUAL) 2.6 10^3/uL (0.5-4.7); ABSOLUTE MONOCYTES # (MANUAL) 0.1 10^3/uL (0.1-1.4); BAND NEUTROPHILS % (MANUAL) 7 % (3-5); BASOPHILS % (MANUAL) 1 % (0-2); EOSINOPHILS % (MANUAL) 0 % (0-6); IMMATURE MONONUCLEAR% (MANUAL) 5 % (0); LYMPHOCYTES % (MANUAL) 32 % (13-45); MONOCYTES % (MANUAL) 2 % (3-13); MYELOCYTES % (MANUAL) 2 % (0); NUCLEATED RED BLOOD CELLS 6 /100 WBC (0); SEGMENTED NEUTROPHILS % (MAN) 46 % (42-78); TOTAL CELLS COUNTED 100
[2020-04-20 01:14] LABS: ANISOCYTOSIS 2+; PLATELET COMMENT ADEQUATE
[2020-04-20 01:17] LABS: HYPOCHROMASIA SLIGHT; OVALOCYTES 1+; POLYCHROMASIA 1+
[2020-04-20 01:18] LABS: TEAR DROP CELLS 1+
[2020-04-20 01:19] LABS: POIKILOCYTOSIS 2+; SCHISTOCYTES 1+
[2020-04-20 01:28] LABS: TOXIC GRANULATION SLIGHT; TOXIC VACUOLATION PRESENT
[2020-04-20 01:52] LABS: HEMOGLOBIN 7.8 g/dL (13.5-17.0)
[2020-04-20] MEDS ORDERED: METOPROLOL TARTRATE 25 MG TABLET PO ONE (05:27)
[2020-04-20] MEDS ORDERED: FLUDROCORTISONE ACETATE 0.1 MG TABLET PO SCH (10:00)
[2020-04-20] MEDS ORDERED: FOLIC ACID 1 MG TABLET PO SCH (10:00)
--- NOTE | 2020-04-20 10:24 | EKG REPORT ---
SEVERITY:- ABNORMAL ECG - WIDE COMPLEX TACHYCARDIA RIGHT BUNDLE BRANCH BLOCK : Confirmed by: Marian Delcid MD 20-Apr-2020 10:23:42
--- NOTE | 2020-04-20 10:24 | EKG REPORT ---
SEVERITY:- ABNORMAL ECG - SINUS RHYTHM FIRST DEGREE AV BLOCK RIGHT BUNDLE BRANCH BLOCK : Confirmed by: Marian Delcid MD 20-Apr-2020 10:23:48
[2020-04-20 15:26] LABS: HEMATOCRIT 21.5 % (37.9-51.0); MEAN CORPUSCULAR HEMOGLOBIN 27.6 pg (27.0-33.4); MEAN CORPUSCULAR HGB CONC 33.7 g/dL (32.0-36.0); MEAN CORPUSCULAR VOLUME 82 fl (80-97); PLATELET COUNT 165 10^3/uL (150-450); RED BLOOD COUNT 2.62 10^6/uL (4.35-5.55); RED CELL DISTRIBUTION WIDTH 18.8 % (11.5-14.0); WHITE BLOOD COUNT 6.3 10^3/uL (4.0-10.5)
[2020-04-20 15:48] LABS: ABSOLUTE LYMPHOCYTES# (MANUAL) 1.5 10^3/uL (0.5-4.7); ABSOLUTE MONOCYTES # (MANUAL) 0.3 10^3/uL (0.1-1.4); BAND NEUTROPHILS % (MANUAL) 6 % (3-5); BASOPHILS % (MANUAL) 0 % (0-2); EOSINOPHILS % (MANUAL) 1 % (0-6); IMMATURE MONONUCLEAR% (MANUAL) 3 % (0); LYMPHOCYTES % (MANUAL) 24 % (13-45); METAMYELOCYTES % (MANUAL) 3 % (0-1); MONOCYTES % (MANUAL) 4 % (3-13); NUCLEATED RED BLOOD CELLS 8 /100 WBC (0); SEGMENTED NEUTROPHILS % (MAN) 59 % (42-78); TOTAL CELLS COUNTED 100
[2020-04-20 15:53] LABS: ANISOCYTOSIS 2+; OVALOCYTES 2+; POLYCHROMASIA SLIGHT
[2020-04-20 15:54] LABS: PLATELET CLUMPS PRESENT; PLATELET COMMENT ADEQUATE
[2020-04-20 15:56] LABS: HEMOGLOBIN 7.2 g/dL (13.5-17.0)
[2020-04-20] MEDS ORDERED: NORMAL SALINE 250 ML IV PRN ×2 (16:12)
--- NOTE | 2020-04-20 16:15 | ER Document Report ---
Doctor's Note Notes: 04/20/20 16:14 I was called to bedside to evaluate patient. He is awake and alert, sitting in the chair, does not appear to be in any distress. Skin appears pink. Patient is demanding a blood transfusion. His hemoglobin has returned and is 7.2, was 7.8 on last check. Patient reports that he has received 15 units of blood and stating that nothing is being done for him currently. He is awaiting transfer to [place], I discussed with him his work-up and treatment while here in the emergency department. I have ordered him 1 unit of packed red blood cells.
[2020-04-20] MEDS ORDERED: ALTEPLASE INJ 2 MG VIAL (CATH CLEARANCE) IV ONE (18:40)
[2020-04-20 21:33] LABS: ALBUMIN 3.1 g/dL (3.5-5.0); ALKALINE PHOSPHATASE 66 U/L (38-126); ANION GAP 9 (5-19); ASPARTATE AMINO TRANSFERASE 34 U/L (17-59); BILIRUBIN,DIRECT 0.3 mg/dL (0.0-0.4); BILIRUBIN,TOTAL 1.4 mg/dL (0.2-1.3); BLOOD UREA NITROGEN 40 mg/dL (7-20); CALCIUM 7.2 mg/dL (8.4-10.2); CARBON DIOXIDE 26 mmol/L (22-30); CHLORIDE 100 mmol/L (98-107); GLUCOSE 125 mg/dL (75-110); PHOSPHORUS 4.7 mg/dL (2.5-4.5); POTASSIUM 4.1 mmol/L (3.6-5.0); TOTAL PROTEIN 6.7 g/dL (6.3-8.2); URIC ACID 13.4 mg/dL (3.5-8.5)
[2020-04-20 21:45] LABS: D-DIMER 1.49 ug/mL (0.00-0.50)
[2020-04-20] MEDS ORDERED: DOXAZOSIN MESYLATE 1 MG TABLET PO SCH (22:00)
[2020-04-20] MEDS ORDERED: METOPROLOL TARTRATE 25 MG TABLET PO SCH (22:00)
--- NOTE | 2020-04-20 22:24 | ER Document Report ---
ED General - General Chief Complaint: Abnormal Lab Results Stated Complaint: ABNORMAL LABS Time Seen by Provider: 04/19/20 15:13 Primary Care Provider: MELITA LUJAN MD [Primary Care Provider] - Follow up as needed Mode of Arrival: Wheelchair TRAVEL OUTSIDE OF THE [place] IN LAST 30 DAYS: No - Related Data Allergies/Adverse Reactions: No Known Allergies Allergy (Verified 04/19/20 15:12) Home Medications: cardiac. colon ca. colon removed. rectal surgery. prostate ca Past Medical History - General Information source: Patient - Social History Smoking Status: Former Smoker Cigarette use (# per day): No Chew tobacco use (# tins/day): No Frequency of alcohol use: None Drug Abuse: None Lives with: Family Family History: Reviewed & Not Pertinent, DM Patient has homicidal ideation: No - Past Medical History Cardiac Medical History: Reports: Hx Coronary Artery Disease, Hx Heart Attack - 2010, Hx Hypercholesterolemia, Hx Hypertension Pulmonary Medical History: Denies: Hx Asthma, Hx Bronchitis, Hx COPD, Hx Pneumonia Neurological Medical History: Denies: Hx Cerebrovascular Accident, Hx Seizures Renal/ Medical History: Denies: Hx Peritoneal Dialysis Malignancy Medical History: Reports Hx Prostate Cancer - Treated with radiation seed implantation, and external beam radiation GI Medical History: Reports: Hx Ulcerative Colitis Musculoskeletal Medical History: Denies Hx Arthritis Psychiatric Medical History: Reports: Hx Depression Infectious Medical History: Past Surgical History: Reports: Hx Abdominal Surgery - Total colectomy with ileostomy in December 2017, Hx Appendectomy, Hx Cardiac Surgery - pacemaker, Hx Colostomy, Hx Coronary Stent - X3, Hx Open Heart Surgery - run blood gas aortic valve replacement September 2017 - Immunizations Hx Diphtheria, Pertussis, Tetanus Vaccination: Yes Hx Pneumococcal Vaccination: 08/26/12 Physical Exam - Vital signs Vitals: Temp Pulse Resp BP Pulse Ox 97.6 F 126 H 20 91/53 L 98 04/19/20 15:06 04/19/20 15:06 04/19/20 15:06 04/19/20 15:06 04/19/20 15:06 Course - Re-evaluation Re-evalutation: 04/20/20 22:17 [facility] I have seen the pt again and reviewed the chart and spoken with Dr. Lujan here and then Dr. Valencia from the hospitalist team. The pt remained on the list for [place]. I have discussed the pt again with the [facility] oncology team and the attending doctor has conveyed to me - thru Dr. Flowers (fellow in heme onc) - that the pt, from their perspective, can follow up. The concern here is that the pt is needed reperated PRBCs to maintain a low H/H and has known AVMs and blasts seen on the peripheral smear. He is clinically stable here, but has an acute kidney injury in addition to the hematolgy disorder. He is best served, in my opinion, with a rapid diagnosis of the blast source and we are still attempting that. Repeat of the CMP shows a mild improvement in kidney function and a mild decreased in PO4 and UA. [place] transfer center was reengaged and they have accepted the pt in transfer. We are awaiting [place] ambulance service for transport. - Vital Signs Vital signs: Temp Pulse Resp BP Pulse Ox 98.2 F 98 16 104/71 96 04/20/20 20:35 04/20/20 17:50 04/20/20 21:00 04/20/20 20:35 04/20/20 19:43 - Laboratory Result Diagrams: 04/20/20 15:05 04/20/20 21:03 Laboratory results interpreted by me: 04/19/20 04/19/20 04/19/20 15:49 15:49 15:49 RBC 2.45 L Hgb 6.6 L Hct 20.1 L MCH 26.9 L RDW 22.4 H Seg Neuts % (Manual) 38 L Band Neutrophils % 2 L Monocytes % (Manual) Metamyelocytes % Myelocytes % 1 H Promyelocytes % 2 H Immature Leukocytes % 13 H Fibrinogen D-Dimer Sodium 132.3 L Chloride 97 L BUN 47 H Creatinine 3.73 H Est GFR ( Amer) 19 L Est GFR (MDRD) Non-Af 16 L Glucose 112 H Uric Acid Calcium 7.7 L Phosphorus Total Bilirubin 1.6 H Direct Bilirubin 0.5 H Lactate Dehydrogenase Albumin 3.3 L Crossmatch See Detail 04/19/20 04/20/20 04/20/20 15:49 00:30 15:05 RBC 2.84 L 2.62 L Hgb 7.8 L 7.2 L Hct 23.5 L 21.5 L MCH RDW 18.3 H 18.8 H Seg Neuts % (Manual) Band Neutrophils % 7 H 6 H Monocytes % (Manual) 2 L Metamyelocytes % 3 H Myelocytes % 2 H Promyelocytes % Immature Leukocytes % 5 H 3 H Fibrinogen D-Dimer Sodium Chloride BUN Creatinine Est GFR ( Amer) Est GFR (MDRD) Non-Af Glucose Uric Acid 13.9 H Calcium Phosphorus 5.5 H Total Bilirubin Direct Bilirubin Lactate Dehydrogenase 357 H Albumin Crossmatch 04/20/20 04/20/20 21:03 21:03 RBC Hgb Hct MCH RDW Seg Neuts % (Manual) Band Neutrophils % Monocytes % (Manual) Metamyelocytes % Myelocytes % Promyelocytes % Immature Leukocytes % Fibrinogen 607 H D-Dimer 1.49 H Sodium 134.9 L Chloride BUN 40 H Creatinine 3.59 H Est GFR ( Amer) 20 L Est GFR (MDRD) Non-Af 17 L Glucose 125 H Uric Acid 13.4 H Calcium 7.2 L Phosphorus 4.7 H Total Bilirubin 1.4 H Direct Bilirubin Lactate Dehydrogenase Albumin 3.1 L Crossmatch - Diagnostic Test Radiology reviewed: Reports reviewed - EKG Interpretation by Me EKG shows normal: Sinus rhythm - Sinus Rhythm 73 BPM no RBBB 1st degree av block without st elevation or depression my interpretation. Critical Care Note - Critical Care Note Total time excluding time spent on procedures (mins): 30 Comments: MDM This complex medical pt needed multiple consults with several tertiary care centers - [facility], [place], [facility] and multiple conversations with consultants including our housestaff here and oncology here several times. Additionally he was transfused several units of PRBCs here in the ED and his response to this was monitored as was his renal function. From a clinical standpoint he is no worse and arguably improved to some degree from his arrival here. Total Critical Care time 60 minutes includes all of above with complex medical decision making. 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
[2020-04-20 23:13] VITALS: BP 133/62
== END 2020-04-20 23:15 | disposition short-term general hospital (02) ==
LOC: ER 15:00
DX: D50.0 Iron deficiency anemia secondary to blood loss (chronic) (principal); C95.00 Acute leukemia of unspecified cell type not having achieved remission; Q27.33 Arteriovenous malformation of digestive system vessel; E66.01 Morbid (severe) obesity due to excess calories; I44.0 Atrioventricular block, first degree; I45.10 Unspecified right bundle-branch block; I13.10 Hypertensive heart and chronic kidney disease without heart failure, with stage 1 through stage 4 chronic kidney disease, or unspecified chronic kidney disease; N18.3 Chronic kidney disease, stage 3 (moderate); N17.9 Acute kidney failure, unspecified; C61 Malignant neoplasm of prostate; I25.10 Atherosclerotic heart disease of native coronary artery without angina pectoris; R19.5 Other fecal abnormalities; N13.30 Unspecified hydronephrosis; R10.9 Unspecified abdominal pain; Z90.49 Acquired absence of other specified parts of digestive tract; Z79.899 Other long term (current) drug therapy; Z87.891 Personal history of nicotine dependence; Z95.5 Presence of coronary angioplasty implant and graft; Z93.3 Colostomy status
CPT/HCPCS: 93005 ×2; 99285; 86900; 86901; 36415; 87040; 36430; 86850; 83615; 83690; 84100; 84443; 84550; 85025; 85384; 85610; 87077; 80053; 81001; 84484; 87186; 86920; 85379; 87150 ×26; 71045; 74176; 93010 ×2; P9016; A9270 ×2; J2997; J7030

== ENCOUNTER 2020-05-19 10:51 | Inpatient (IN) | payer MEDICARE, OTHER ==
[~2020-05-19 10:51] MED LIST changes: +CALCIUM GLUCONATE 1000 MG/10 ML INJ IV ONE; +ETOMIDATE INJ/PF 20 MG/10 ML SDV IV ONE; +LIDOCAINE 2% INJ-PF (100 MG/5 ML) SYRINGE ONE; +SODIUM BICARBONATE 8.4% INJ 50 MEQ/50 ML DISP.SYRIN ONE; -[UNRECOGNIZED DRUG - OTHER] IM PRN
[2020-05-19] MEDS ORDERED: AZTREONAM INJ 1 GM VIAL IV ONE (10:56)
[2020-05-19] MEDS ORDERED: VANCOMYCIN HCL INJ 1000 MG VIAL IV ONE (10:56)
[2020-05-19] MEDS ORDERED: RINGERS LACTATED IV ONE (11:01)
[2020-05-19] MEDS ORDERED: DEXTROSE 50%-WATER 25 GM/50 ML DISP.SYRIN IV ONE ×2 (11:07→11:08)
[2020-05-19 11:20] LABS: VENOUS BLOOD BASE EXCESS -8.3 mmol/L; VENOUS BLOOD HCO3 16.4 mmol/L (20-32); VENOUS BLOOD PCO2 30.6 mmHg (35-63); VENOUS BLOOD PH 7.35 (7.30-7.42)
[2020-05-19 11:23] LABS: HEMATOCRIT 26.5 % (37.9-51.0); HEMOGLOBIN 8.6 g/dL (13.5-17.0); MEAN CORPUSCULAR HEMOGLOBIN 26.7 pg (27.0-33.4); MEAN CORPUSCULAR HGB CONC 32.3 g/dL (32.0-36.0); MEAN CORPUSCULAR VOLUME 83 fl (80-97); PLATELET COUNT 190 10^3/uL (150-450); RED BLOOD COUNT 3.21 10^6/uL (4.35-5.55); RED CELL DISTRIBUTION WIDTH 22.5 % (11.5-14.0); WHITE BLOOD COUNT 21.5 10^3/uL (4.0-10.5)
[2020-05-19 11:33] LABS: INTERNATIONAL RATION (INR) 2.32; PROTHROMBIN TIME 25.5 SEC (11.4-15.4)
[2020-05-19 11:34] LABS: APPEARANCE,URINE SLIGHTLY-CLOUDY; BILIRUBIN,URINE NEGATIVE (NEGATIVE); COLOR,URINE AMBER; GLUCOSE, URINE NEGATIVE (NEGATIVE); KETONES,URINE NEGATIVE (NEGATIVE); PROTEIN,URINE 30 mg/dL (NEGATIVE); URINE SPECIFIC GRAVITY 1.016; UROBILINOGEN,URINE NEGATIVE mg/dL (<2.0)
[2020-05-19 11:42] LABS: ALBUMIN 2.5 g/dL (3.5-5.0); ALKALINE PHOSPHATASE 101 U/L (38-126); ANION GAP 18 (5-19); ASPARTATE AMINO TRANSFERASE 373 U/L (17-59); BILIRUBIN,DIRECT 8.7 mg/dL (0.0-0.4); BILIRUBIN,TOTAL 10.1 mg/dL (0.2-1.3); BLOOD UREA NITROGEN 82 mg/dL (7-20); CARBON DIOXIDE 16 mmol/L (22-30); CHLORIDE 98 mmol/L (98-107); POTASSIUM 4.6 mmol/L (3.6-5.0); TOTAL PROTEIN 5.9 g/dL (6.3-8.2)
[2020-05-19 11:43] LABS: GLUCOSE 55 mg/dL (75-110)
[2020-05-19 11:51] LABS: CALCIUM 6.7 mg/dL (8.4-10.2)
[2020-05-19 11:55] LABS: ABSOLUTE LYMPHOCYTES# (MANUAL) 1.9 10^3/uL (0.5-4.7); ABSOLUTE MONOCYTES # (MANUAL) 2.6 10^3/uL (0.1-1.4); BAND NEUTROPHILS % (MANUAL) 5 % (3-5); BASOPHILS % (MANUAL) 0 % (0-2); EOSINOPHILS % (MANUAL) 1 % (0-6); LYMPHOCYTES % (MANUAL) 8 % (13-45); METAMYELOCYTES % (MANUAL) 1 % (0-1); MONOCYTES % (MANUAL) 12 % (3-13); SEGMENTED NEUTROPHILS % (MAN) 70 % (42-78); TOTAL CELLS COUNTED 100
[2020-05-19 11:59] LABS: ANISOCYTOSIS 3+; OVALOCYTES 2+; PLATELET COMMENT ADEQUATE; POIKILOCYTOSIS 2+; SCHISTOCYTES 2+; TOXIC VACUOLATION PRESENT
[2020-05-19 12:00] LABS: SPHEROCYTES 1+
[2020-05-19] MEDS ORDERED: ACETAMINOPHEN 650 MG SUPP.RECT PR ONE (12:03)
[2020-05-19 12:04] LABS: ARTERIAL BLOOD BASE EXCESS -9.5 mmol/L; ARTERIAL BLOOD H2CO3 0.78 mmol/L (1.05-1.35); ARTERIAL BLOOD HCO3 14.7 mmol/L (20-24); ARTERIAL BLOOD PH 7.37 (7.35-7.45); ARTERIAL BLOOD PO2 57.9 mmHg (80-100); ARTERIAL BLOOD TOTAL CO2 15.5 mmol/L (23-27)
[2020-05-19 12:04] LABS: URINE AMPHETAMINES SCREEN NEGATIVE; URINE BARBITURATES SCREEN NEGATIVE; URINE BENZODIAZEPINES SCREEN NEGATIVE; URINE COCAINE SCREEN NEGATIVE; URINE MARIJUANA (THC) SCREEN NEGATIVE; URINE METHADONE SCREEN NEGATIVE; URINE PHENCYCLIDINE SCREEN NEGATIVE
--- NOTE | 2020-05-19 12:04 | RADIOLOGY REPORT (SQ) ---
EXAM DESCRIPTION: CHEST SINGLE VIEW IMAGES COMPLETED DATE/TIME: 05/19/2020 11:41 am REASON FOR STUDY: sepsis COMPARISON: 04/19/2020 NUMBER OF VIEWS: One view. TECHNIQUE: Single frontal radiographic image of the chest acquired. LIMITATIONS: None. FINDINGS: LUNGS AND PLEURA: Chronic interstitial changes. No evidence of pulmonary edema or pneumon ia. MEDIASTINUM AND HEART: Stable heart size and mediastinal structures. SUPPORT DEVICES: Stable position of right pacemaker. BONY STRUCTURES: No acute findings. HARDWARE: CABG. OTHER: No other significant finding. IMPRESSION: Cardiomegaly. No acute findings. Reading location - IP/workstation name: [email or web address]
[2020-05-19 12:05] LABS: MYELOCYTES % (MANUAL) 1 % (0); NUCLEATED RED BLOOD CELLS 6 /100 WBC (0); PROMYELOCYTES % (MANUAL) 1 % (0)
[2020-05-19 12:08] LABS: ARTERIAL BLOOD FIO2 2L
[2020-05-19] MEDS ORDERED: CALCIUM GLUCONATE 1000 MG/10 ML INJ IV ONE (12:08)
--- NOTE | 2020-05-19 13:27 | RADIOLOGY REPORT (SQ) ---
EXAM DESCRIPTION: CT HEAD WITHOUT IMAGES COMPLETED DATE/TIME: 05/19/2020 1:12 pm REASON FOR STUDY: ams COMPARISON: None. TECHNIQUE: Axial images acquired through the brain without intravenous contrast. Images reviewed wi th bone, brain and subdural windows. Additional sagittal and coronal reconstructions were generated. Images stored on PACS. All CT scanners at this facility use dose modulation, iterative reconstruction, and/or weight based d osing when appropriate to reduce radiation dose to as low as reasonably achievable (ALARA). [facility]: Dose Right [facility]: CareDose [facility]: Dose Right [facility]: Teradose 4D [facility]: [employer] RADIATION DOSE: CT Rad equipment meets quality standard of care and radiation dose reduction techniq ues were employed. CTDIvol: 53.2 mGy. DLP: 1150 mGy-cm. mGy. LIMITATIONS: None. FINDINGS: VENTRICLES: Normal size and contour. CEREBRUM: No masses. No hemorrhage. No midline shift. No evidence for acute infarction. Normal gra y/white matter differentiation. No areas of low density in the white matter. CEREBELLUM: Posterior fossa arachnoid cyst. No solid masses in the cerebellum. No infarction. EXTRAAXIAL SPACES: No fluid collections. No masses. ORBITS AND GLOBE: No intra- or extraconal masses. Normal contour of globe without masses. CALVARIUM: No fracture. PARANASAL SINUSES: No fluid or mucosal thickening. SOFT TISSUES: No mass or hematoma. OTHER: No other significant finding. IMPRESSION: Posterior fossa arachnoid cyst. No other significant finding. EVIDENCE OF ACUTE STROKE: NO. COMMENT: Quality ID # [id number]: Final reports with documentation of one or more dose reduction techniques (e.g., Automated exposure control, adjustment of the mA and/or kV according to patient size, use of iterative reconstruction technique) TECHNICAL DOCUMENTATION: JOB ID: [id number] 2010 [employer]- All Rights Reserved Reading location - IP/workstation name: [email or web address]
[2020-05-19] MEDS ORDERED: CLINDAMYCIN 600 MG/D5W RTU 600 MG/50 ML RTUPB IV ONE (13:37)
[2020-05-19] MEDS ORDERED: DEXTROSE 5%-WATER 250 ML with NOREPINEPHRINE BITARTRATE 4 MG IV PRN ×4 (13:38→16:41)
--- NOTE | 2020-05-19 13:41 | RADIOLOGY REPORT (SQ) ---
EXAM DESCRIPTION: CT ABD/PELVIS NO ORAL OR IV IMAGES COMPLETED DATE/TIME: 05/19/2020 1:12 pm REASON FOR STUDY: sepsis COMPARISON: 04/19/2020 TECHNIQUE: CT scan of the abdomen and pelvis performed without intravenous or oral contrast. Images reviewed with lung, soft tissue, and bone windows. Reconstructed coronal and sagittal MPR images revi ewed. All images stored on PACS. All CT scanners at this facility use dose modulation, iterative reconstruction, and/or weight based d osing when appropriate to reduce radiation dose to as low as reasonably achievable (ALARA). [facility]: Dose Right [facility]: CareDose [facility]: Dose Right [facility]: Teradose 4D [facility]: [employer] RADIATION DOSE: CT Rad equipment meets quality standard of care and radiation dose reduction techniq ues were employed. CTDIvol: 26.9 mGy. DLP: 1566 mGy-cm.mGy. LIMITATIONS: None. FINDINGS: LOWER CHEST: Dependent atelectasis in the lung bases. NON-CONTRASTED LIVER, SPLEEN, ADRENALS: Evaluation limited by lack of IV contrast. No identified sign ificant masses. PANCREAS: No masses. No peripancreatic inflammatory changes. GALLBLADDER: The gallbladder slightly hyperdense. No definable gallstones are seen. RIGHT KIDNEY AND URETER: No suspicious masses. Assessment limited by lack of IV contrast. Vascular calcifications. No hydronephrosis or hydroureter. LEFT KIDNEY AND URETER: No suspicious masses. Assessment limited by lack of IV contrast. Vascular c alcifications. No hydronephrosis or hydroureter. AORTA AND RETROPERITONEUM: No aneurysm. No retroperitoneal masses or adenopathy. BOWEL AND PERITONEAL CAVITY: Right lower quadrant ostomy. Apparent total colectomy. No bowel mass o r obstruction. APPENDIX: Surgically absent. PELVIS, BLADDER, AND ABDOMINAL WALL:Prostate seed implants. There is a catheter in the urinary bladd er. BONES: No significant findings. OTHER: No other significant finding. IMPRESSION: Slightly hyperdense gallbladder suggestive of milk of calcium gallbladder versus numerou s tiny gallstones. Right lower quadrant ostomy. Renal vascular calcifications. No acute findings. COMMENT: Quality ID # [id number]: Final reports with documentation of one or more dose reduction techniques (e.g., Automated exposure control, adjustment of the mA and/or kV according to patient size, use of iterative reconstruction technique) TECHNICAL DOCUMENTATION: JOB ID: [id number] 2010 [employer]- All Rights Reserved Reading location - IP/workstation name: [email or web address]
--- NOTE | 2020-05-19 13:48 | ER Document Report ---
ED General - General Chief Complaint: Altered Mental Status Stated Complaint: ALTERED MENTAL STATUS Primary Care Provider: MELITA MYERS MD [Primary Care Provider] - Follow up as needed TRAVEL OUTSIDE OF THE [place]. IN LAST 30 DAYS: No - HPI Notes: Chief complaint: Altered mental status and hypotension History of present illness: 75-year-old male with history of myelodysplastic syndrome and past history of colon CA and ulcerative colitis recently treated with Vidaza and just released from [facility] several days ago now transported here via EMS for altered mental status which is been progressive over several days per family and hypotension which is been noted today by EMS. Patient is in extremis and unable to relate his own history. I have reviewed extensive old records here and also have spoken with his local oncologist Dr. Davis by telephone. indicates that she saw this gentleman in clinic 2 days ago and started him on Augmentin for a cellulitis in the left groin area and she recommended hospitalization and the patient was adamantly opposed to this and refused admission. Son reiterates that the patient is a full code at this time. - Related Data Allergies/Adverse Reactions: No Known Allergies Allergy (Verified 04/19/20 15:12) Past Medical History - General Information source: Relative, Office, COUNT INCLUDES [facility] Records Cannot obtain history due to: Altered mental status - Social History Smoking Status: Unknown if Ever Smoked Frequency of alcohol use: None Drug Abuse: None Lives with: Family Family History: Reviewed & Not Pertinent, DM - Past Medical History Cardiac Medical History: Reports: Hx Coronary Artery Disease, Hx Heart Attack - 2010, Hx Hypercholesterolemia, Hx Hypertension Pulmonary Medical History: Denies: Hx Asthma, Hx Bronchitis, Hx COPD, Hx Pneumonia Neurological Medical History: Denies: Hx Cerebrovascular Accident, Hx Seizures Renal/ Medical History: Reports: Other - Renal insufficiency. Denies: Hx Peritoneal Dialysis Malignancy Medical History: Reports Hx Prostate Cancer - Treated with radiation seed implantation, and external beam radiation GI Medical History: Reports: Hx Ulcerative Colitis, Other - Cancer of the colon Musculoskeletal Medical History: Denies Hx Arthritis Psychiatric Medical History: Reports: Hx Depression Infectious Medical History: Past Surgical History: Reports: Hx Abdominal Surgery - Total colectomy with ileostomy in December 2017, Hx Appendectomy, Hx Cardiac Surgery - pacemaker, Hx Colostomy, Hx Coronary Stent - X3, Hx Open Heart Surgery - run blood gas aortic valve replacement September 2017 - Immunizations Hx Diphtheria, Pertussis, Tetanus Vaccination: Yes Hx Pneumococcal Vaccination: 08/26/12 Review of Systems - Review of Systems -: Yes ROS unobtainable due to patient's medical condition Physical Exam - Vital signs Vitals: Resp Pulse Ox 34 H 93 05/19/20 10:52 05/19/20 10:52 - Notes Notes: GENERAL: Somewhat obese elderly man with severely altered mental status. SKIN: Pale and cool. Patient has redness and desquamation noted in the left groin area adjacent to the scrotum. Also has ecchymotic lesions over the medial aspect of the left lower extremity. HEAD: Normocephalic atraumatic. EYES: Pupils are small equal and sluggishly reactive to light. Eyes are open spontaneously and gaze is conjugate. EARS: CANALS AND TMS CLEAR. NOSE: CLEAR. MOUTH: Dry oral mucosa. Gag reflex intact. No stridor or edema. No drooling. NECK: Supple. No masses or thyromegaly. No adenopathy. Carotids 2+ without bruits. No JVD. BACK: Symmetrical without tenderness. CHEST: Tachypnea. Respirations unlabored. Breath sounds clear and symmetrical. HEART: Tachycardic regular rhythm. No murmur gallop or rub. Pacemaker right anterior chest wall. Healed midline CABG scar present. ABDOMEN: Colostomy right upper quadrant with yellow stool present bag. Soft mildly distended without masses, organomegaly or rebound. Bowel sounds normally active. No bruits. GENITALIA: Uncircumcised male. Area of swelling redness and skin breakdown along left lateral aspect of scrotum. EXTREMITIES: No edema. No calf tenderness. Cap refill less than 1.5 seconds. Dorsalis pedis and posterior tibial pulses 3+ and symmetrical. NEUROLOGICAL: GCS 12. Eyes are open spontaneously. Nonsense syllables. Patient will commands to squeeze my fingers. He moves all 4 extremities symmetrically. Course - Re-evaluation Re-evalutation: 05/19/20 15:49 We have attempted to transfer this patient to [place] and I have spoken with Dr. Maninder Betancourt in the ICU there who says he will place this gentleman on a waiting list but they currently on diversion and cannot accept the patient. This man has been aggressively treated for sepsis with IV fluids IV antibiotics and pressors. He has a Fernandez catheter. CT scan of the abdomen and pelvis without contrast have demonstrated multiple stones and sludge in the gallbladder. No other significant findings reported acutely. White count is 21,000. Lactate is 5.5. He has acute kidney injury with a creatinine of 5.2. Arterial pH is normal. He is requiring 4 L of nasal O2. We have not placed a central line at this point because he has pacing leads in the great vessels in the chest bilaterally and has a significant cellulitis in the left groin area. He is also somewhat coagulopathic with a INR of 2.3. Current findings have been discussed with the ICU attending cannoneer Dr. Vasquez. He will evaluate patient at this time for admission to critical care unit locally until bed is available at [place]. - Vital Signs Vital signs: Temp Pulse Resp BP Pulse Ox 23 H 87/32 L 90 L 05/19/20 15:30 05/19/20 15:30 05/19/20 15:30 - Laboratory Result Diagrams: 05/19/20 11:00 05/19/20 11:00 Laboratory results interpreted by me: 05/19/20 05/19/20 05/19/20 10:56 11:00 11:00 WBC 21.5 H RBC 3.21 L Hgb 8.6 L Hct 26.5 L MCH 26.7 L RDW 22.5 H Lymphocytes % (Manual) 8 L Myelocytes % 1 H Promyelocytes % 1 H Abs Neuts (Manual) 16.8 H Abs Monocytes (Manual) 2.6 H PT 25.5 H Carbonic Acid ABG pCO2 ABG pO2 ABG HCO3 ABG Total CO2 ABG O2 Saturation VBG pCO2 VBG HCO3 Sodium Carbon Dioxide BUN Creatinine Est GFR ( Amer) Est GFR (MDRD) Non-Af Glucose POC Glucose 57 L Lactic Acid Calcium Total Bilirubin Direct Bilirubin AST ALT Total Protein Albumin Urine Protein Urine Blood 05/19/20 05/19/20 05/19/20 11:00 11:00 11:00 WBC RBC Hgb Hct MCH RDW Lymphocytes % (Manual) Myelocytes % Promyelocytes % Abs Neuts (Manual) Abs Monocytes (Manual) PT Carbonic Acid ABG pCO2 ABG pO2 ABG HCO3 ABG Total CO2 ABG O2 Saturation VBG pCO2 30.6 L VBG HCO3 16.4 L Sodium 131.7 L Carbon Dioxide 16 L BUN 82 H Creatinine 5.31 H Est GFR ( Amer) 13 L Est GFR (MDRD) Non-Af 11 L Glucose 55 L POC Glucose Lactic Acid 5.3 H Calcium 6.7 L* Total Bilirubin 10.1 H Direct Bilirubin 8.7 H AST 373 H ALT 100 H Total Protein 5.9 L Albumin 2.5 L Urine Protein Urine Blood 05/19/20 05/19/20 05/19/20 11:10 11:55 13:48 WBC RBC Hgb Hct MCH RDW Lymphocytes % (Manual) Myelocytes % Promyelocytes % Abs Neuts (Manual) Abs Monocytes (Manual) PT Carbonic Acid 0.78 L ABG pCO2 26.0 L ABG pO2 57.9 L ABG HCO3 14.7 L ABG Total CO2 15.5 L ABG O2 Saturation 90.0 L VBG pCO2 VBG HCO3 Sodium Carbon Dioxide BUN Creatinine Est GFR ( Amer) Est GFR (MDRD) Non-Af Glucose POC Glucose Lactic Acid 5.5 H Calcium Total Bilirubin Direct Bilirubin AST ALT Total Protein Albumin Urine Protein 30 H Urine Blood MODERATE H - Diagnostic Test Radiology reviewed: Reports reviewed - Per radiologist: No acute changes on head CT. Abdomen/pelvis CT remarkable for presence of colostomy and multiple small stones in gallbladder with milk of calcium appearance. Portable chest x-ray shows cardiomegaly. Critical Care Note - Critical Care Note Total time excluding time spent on procedures (mins): 120 - Ryan's gangrene, sepsis, altered mental status Discharge - Discharge Clinical Impression: Septic shock, Ryan's gangrene of scrotum, Myelodysplastic syndrome Condition: Critical Disposition: ADMITTED INPATIENT Admitting Provider: Dr. Vasquez Unit Admitted: ICU Referrals: MELITA MYERS MD [Primary Care Provider] - Follow up as needed
[2020-05-19] MEDS ORDERED: NOREPINEPHRINE BITARTRATE INJ/PF 4 MG/4 ML SDV IV ONE ×3 (14:10→21:15)
[2020-05-19] MEDS ORDERED: DILTIAZEM HCL INJ 25 MG/5 ML VIAL IV ONE (15:16)
[2020-05-19] MEDS ORDERED: MIDAZOLAM 2 MG/2 ML INJ ONE (15:58)
[2020-05-19] MEDS ORDERED: ETOMIDATE INJ/PF 20 MG/10 ML SDV IV ONE (16:27)
[2020-05-19] MEDS ORDERED: ROCURONIUM BROMIDE INJ 50 MG/5 ML VIAL IV ONE (16:27)
[2020-05-19] MEDS ORDERED: MIDAZOLAM 2 MG/2 ML INJ IV ONE (16:28)
[2020-05-19] MEDS ORDERED: ACETAMINOPHEN 325 MG TABLET PO PRN (16:41)
[2020-05-19] MEDS ORDERED: MIDAZOLAM HCL 50 MG/100 ML RTUINJ IV PRN (16:53)
[2020-05-19] MEDS ORDERED: CALCIUM GLUC IN NACL, ISO-OSM 1 GM/50 ML RTUPB IV ONE (16:55)
--- NOTE | 2020-05-19 16:55 | RADIOLOGY REPORT (SQ) ---
EXAM DESCRIPTION: CHEST SINGLE VIEW IMAGES COMPLETED DATE/TIME: 05/19/2020 4:44 pm REASON FOR STUDY: tr2 post intubation COMPARISON: 05/19/2020 EXAM PARAMETERS: NUMBER OF VIEWS: One view. TECHNIQUE: Single frontal radiographic view of the chest acquired. RADIATION DOSE: NA LIMITATIONS: None. FINDINGS: LUNGS AND PLEURA: Mild pulmonary edema. MEDIASTINUM AND HILAR STRUCTURES: No masses. Contour normal. HEART AND VASCULAR STRUCTURES: Cardiomegaly. BONES: No acute findings. HARDWARE: An endotracheal tube has its tip 4 cm above the meliton. A right internal jugular catheter has its tip in the superior vena cava. Injection port on the left. Pacemaker on the right. Sternot brad wires. An NG tube extends to the stomach. OTHER: No other significant finding. IMPRESSION: Tube and catheter placement as described. Cardiomegaly with pulmonary edema. TECHNICAL DOCUMENTATION: JOB ID: [id number] 2010 [employer]- All Rights Reserved Reading location - IP/workstation name: [email or web address]
[2020-05-19] MEDS: MAGNESIUM SULFATE 1 GM/D5W 100 ML IV SCH ×2 (17:51→18:52)
--- NOTE | 2020-05-19 17:54 | RADIOLOGY REPORT (SQ) ---
EXAM DESCRIPTION: U/S ABDOMEN LIMITED W/O DOP IMAGES COMPLETED DATE/TIME: 05/19/2020 5:32 pm REASON FOR STUDY: Increased bilirubin, sepsis COMPARISON: 10/07/2017 TECHNIQUE: Dynamic and static grayscale images acquired of the abdomen and recorded on PACS. Kishao vale selected color Doppler and spectral images recorded. LIMITATIONS: None. FINDINGS: PANCREAS: No masses. The distal pancreas is not well seen. LIVER: Hepatomegaly. Somewhat heterogeneous. cc Increased echogenicity with focal fatty sparing tien cent to the gallbladder. LIVER VASCULATURE: Normal directional flow of the main portal vein and hepatic veins. GALLBLADDER: No stones. Normal wall thickness. No pericholecystic fluid. ULTRASOUND-DETECTED GARCIA'S SIGN: Negative. INTRAHEPATIC DUCTS AND COMMON DUCT: CBD and intrahepatic ducts normal caliber. No filling defects. AORTA: No aneurysm. RIGHT KIDNEY: Normal size, 10.3 cm. Cortical thinning. Increased echogenicity. No solid or suspici ous masses. No hydronephrosis. No calcifications. PERITONEAL AND RIGHT PLEURAL SPACE: No ascites or effusions. OTHER: No other significant findings. IMPRESSION: Hepatomegaly with hepatic steatosis. Mild cortical atrophy in the right kidney. Findtracee aguilar as described. TECHNICAL DOCUMENTATION: JOB ID: [id number] 2010 [employer]- All Rights Reserved Reading location - IP/workstation name: [email or web address]
[2020-05-19] MEDS ORDERED: FAMOTIDINE INJ/PF 20 MG/2 ML SDV IV SCH (18:00)
[2020-05-19] MEDS ORDERED: PIPERACILLIN SODIUM/TAZOBACTAM 4.5 GM in NORMAL SALINE 100 ML IV SCH (18:00)
[2020-05-19] MEDS ORDERED: VASOPRESSIN INJ 20 UNIT/1 ML VIAL ONE (18:03)
[2020-05-19] MEDS ORDERED: AMIODARONE HCL 150 MG in DEXTROSE 5%-WATER 100 ML IV ONE (18:08)
--- NOTE | 2020-05-19 18:10 | PDOC CONSULTATION ---
Consultation Consult Date: 05/19/20 Provider Consulted: MELITA MYERS Consult reason:: Hematology/Oncology consultation was requested for patient well known to me with history of Colon cancer, currently undergoing chemo for myelodyspnstic syndrome and acute sepsis. History of Present Illness Admission Date/PCP: 05/19/20 16:20 MELITA MYERS MD History of Present Illness: OSCAR JOHN is a 75 year old male who underwent colectomy for colon cancer and chronic GI bleeding. No current evidence of colon cancer, but developed myelodysplastic syndrome secondary to treatment for the colon cancer. He was diagnosed at [facility] and was started on azacitadine cycle #1 Day 9 was 05/17/20. He was seen in my office at that time and found to have cellulitis and ulcer on his scrotum and left calf. He was started on PO antibiotics. However, over the past 2 days, he has developed fever, and on admission to the ED was severely hypotensive. He is currently intubated and sedated. Past Medical History Cardiac Medical History: Reports: Coronary Artery Disease, Myocardial Infarction - 2010, Hyperlipidema, Hypertension Pulmonary Medical History: Denies: Asthma, Bronchitis, Chronic Obstructive Pulmonary Disease (COPD), Pneumonia Neurological Medical History: Denies: Seizures Renal/ Medical History: Reports: Other - Renal insufficiency GI Medical History: Reports: Ulcerative Colitis, Other - Cancer of the colon Musculoskeltal Medical History: Denies: Arthritis Psychiatric Medical History: Reports: Depression Hematology: Reports: Anemia Past Surgical History Past Surgical History: Reports: Appendectomy, Colostomy, Coronary Stent - X3 Social History Lives with: Family Smoking Status: Unknown if Ever Smoked Frequency of Alcohol Use: None Hx Recreational Drug Use: No Drugs: None Hx Prescription Drug Abuse: No Family History Family History: Reviewed & Not Pertinent, DM Parental Family History Reviewed: No Children Family History Reviewed: No Sibling(s) Family History Reviewed.: No Medication/Allergy Home Medications: Allopurinol [Zyloprim 100 mg Tablet] 100 mg PO DAILY 09/22/19 Doxazosin Mesylate [Cardura 2 mg Tablet] 1 mg PO DAILY 09/22/19 Folic Acid 1 mg PO DAILY 09/22/19 Furosemide [Lasix 40 mg Tablet] 40 mg PO DAILY 09/22/19 Metoprolol Tartrate [Lopressor 25 mg Tablet] 12.5 mg PO Q12 09/22/19 Rosuvastatin Calcium [Crestor] 20 mg PO DAILY 09/22/19 Fludrocortisone Acetate [Florinef 0.1 mg Tablet] 0.1 mg PO DAILY 04/19/20 Allergies/Adverse Reactions: No Known Allergies Allergy (Verified 04/19/20 15:12) Review of Systems ROS unobtainable: Due to endotracheal tube Physical Exam Vital Signs: Temp Pulse Resp BP Pulse Ox 24 H 92/31 L 98 05/19/20 16:00 05/19/20 16:15 05/19/20 16:15 Intake & Output 05/18/20 05/19/20 05/20/20 06:59 06:59 06:59 Intake Total 4072 Output Total 320 Balance 3752 Weight 132.7 kg General appearance: PRESENT: no acute distress, morbidly obese Head exam: PRESENT: normocephalic Mouth exam: PRESENT: moist, other - endotrachial tube Neck exam: ABSENT: tenderness Respiratory exam: PRESENT: clear to auscultation lasha Cardiovascular exam: PRESENT: RRR, tachycardia GI/Abdominal exam: PRESENT: soft. ABSENT: tenderness Gentrourinary exam: PRESENT: lesions, scrotal swelling Extremities exam: PRESENT: +1 edema Neurological exam: PRESENT: altered, other - sedated on vent. Skin exam: PRESENT: other - New purpura lesions left ower extremity. Results Laboratory Results: 05/19/20 05/19/20 05/19/20 11:00 11:00 11:00 WBC 21.5 H RBC 3.21 L Hgb 8.6 L Hct 26.5 L MCV 83 MCH 26.7 L MCHC 32.3 RDW 22.5 H Plt Count 190 Seg Neutrophils % Not Reportable Carbonic Acid HCO3/H2CO3 Ratio ABG pH ABG pCO2 ABG pO2 ABG HCO3 ABG O2 Saturation ABG Base Excess VBG pH 7.35 VBG pCO2 30.6 L VBG HCO3 16.4 L VBG Base Excess -8.3 FiO2 Sodium 131.7 L Potassium 4.6 Chloride 98 Carbon Dioxide 16 L Anion Gap 18 BUN 82 H Creatinine 5.31 H Est GFR ( Amer) 13 L Glucose 55 L Lactic Acid Calcium 6.7 L* Total Bilirubin 10.1 H AST 373 H Alkaline Phosphatase 101 Total Protein 5.9 L Albumin 2.5 L Urine Color Urine Appearance Urine pH Ur Specific [place] Urine Protein Urine Glucose (UA) Urine Ketones Urine Blood Urine RBC (Auto) Blood Type Antibody Screen 05/19/20 05/19/20 05/19/20 11:00 11:10 11:22 WBC RBC Hgb Hct MCV MCH MCHC RDW Plt Count Seg Neutrophils % Carbonic Acid HCO3/H2CO3 Ratio ABG pH ABG pCO2 ABG pO2 ABG HCO3 ABG O2 Saturation ABG Base Excess VBG pH VBG pCO2 VBG HCO3 VBG Base Excess FiO2 Sodium Potassium Chloride Carbon Dioxide Anion Gap BUN Creatinine Est GFR ( Amer) Glucose Lactic Acid 5.3 H Calcium Total Bilirubin AST Alkaline Phosphatase Total Protein Albumin Urine Color ED Urine Appearance SLIGHTLY-CLOUDY Urine pH 5.0 Ur Specific [place] 1.016 Urine Protein 30 H Urine Glucose (UA) NEGATIVE Urine Ketones NEGATIVE Urine Blood MODERATE H Urine RBC (Auto) 18 Blood Type O POSITIVE Antibody Screen NEGATIVE 05/19/20 05/19/20 11:55 13:48 WBC RBC Hgb Hct MCV MCH MCHC RDW Plt Count Seg Neutrophils % Carbonic Acid 0.78 L HCO3/H2CO3 Ratio 18:1 ABG pH 7.37 ABG pCO2 26.0 L ABG pO2 57.9 L ABG HCO3 14.7 L ABG O2 Saturation 90.0 L ABG Base Excess -9.5 VBG pH VBG pCO2 VBG HCO3 VBG Base Excess FiO2 2L Sodium Potassium Chloride Carbon Dioxide Anion Gap BUN Creatinine Est GFR ( Amer) Glucose Lactic Acid 5.5 H Calcium Total Bilirubin AST Alkaline Phosphatase Total Protein Albumin Urine Color Urine Appearance Urine pH Ur Specific [place] Urine Protein Urine Glucose (UA) Urine Ketones Urine Blood Urine RBC (Auto) Blood Type Antibody Screen 05/19/20 11:00 Troponin I 0.193 Impressions: Abdomen Ultrasound 05/19/20 00:00 IMPRESSION: Hepatomegaly with hepatic steatosis. Mild cortical atrophy in the right kidney. Findings as described. Chest X-Ray 05/19/20 10:57 IMPRESSION: Cardiomegaly. No acute findings. Head CT 05/19/20 12:08 IMPRESSION: Posterior fossa arachnoid cyst. No other significant finding. EVIDENCE OF ACUTE STROKE: NO. Abdomen/Pelvis CT 05/19/20 12:09 IMPRESSION: Slightly hyperdense gallbladder suggestive of milk of calcium gallbladder versus numerous tiny gallstones. Right lower quadrant ostomy. Renal vascular calcifications. No acute findings. Status: Image reviewed by me Assessment & Plan - Plan Summary Plan Summary: 1., History of colon cancer - currently with no evidence of disease 2. Myelodysplastic syndrome - started azacitadine last week - first cycle. Next dose not due until 3 weeks from now. Immunocompromized due to this. Transfuse as indicated. 3. Cellulitis with Sepsis and scrotal ulcer - on appropriate antibiotics. Pressors in place 4. Respiratory failure - now on mechanical ventilation. 5. Prognosis is poor, but patient remains full code. patient was discussed with ED physician. Please call with any questions or concerns.
[2020-05-19 18:16] LABS: ALBUMIN 2.2 g/dL (3.5-5.0); ALKALINE PHOSPHATASE 96 U/L (38-126); ANION GAP 13 (5-19); ASPARTATE AMINO TRANSFERASE 364 U/L (17-59); BLOOD UREA NITROGEN 75 mg/dL (7-20); CARBON DIOXIDE 18 mmol/L (22-30); CHLORIDE 100 mmol/L (98-107); GLUCOSE 83 mg/dL (75-110); TOTAL PROTEIN 5.2 g/dL (6.3-8.2)
[2020-05-19] MEDS ORDERED: NORMAL SALINE 1000 ML 1,000 ML IV ONE (18:16)
[2020-05-19 18:19] LABS: HEMATOCRIT 24.2 % (37.9-51.0); MEAN CORPUSCULAR HEMOGLOBIN 26.9 pg (27.0-33.4); MEAN CORPUSCULAR HGB CONC 32.2 g/dL (32.0-36.0); MEAN CORPUSCULAR VOLUME 84 fl (80-97); RED BLOOD COUNT 2.89 10^6/uL (4.35-5.55); RED CELL DISTRIBUTION WIDTH 22.8 % (11.5-14.0)
--- NOTE | 2020-05-19 18:19 | CRITICAL CARE ADMISSION REPORT ---
HPI Date:: 05/19/20 Time:: 05:00 Reason for ICU Reason:: Acute septic shock, JEWEL, Acut resp. failure Admission Date/Time & PCP: Admission Date/Time: 05/19/20 16:20 Primary Care Provider: MELITA MYERS MD HPI: History of present illness: 75-year-old male with history of myelodysplastic syndrome and past history of colon CA and ulcerative colitis recently treated with Vidaza and just released from [facility] several days ago now transported here via EMS for altered mental status which is been progressive over several days per family and hypotension which is been noted today by EMS. Patient is in extremis and unable to relate his own history. I have reviewed extensive old records here and also have spoken with his local oncologist Dr. Davis by telephone. indicates that she saw this gentleman in clinic 2 days ago and started him on Augmentin for a cellulitis in the left groin area and she recommended hospitalization and the patient was adamantly opposed to this and refused admission. Son reiterates that the patient is a full code at this time. 05/19 The patient was seen by his oncologist a few days ago with this pubic rash and was urged to be admitted but thepatient apparently declined. I was asked to see the patient by Dr. Ratliff for possible admission. When I saw him he was still responsive and speaking. However, he appeared to be getting more obtunded. Given his hemodynamic instabilty and worsening mental status we intubated him. I than placed a CVP in the Right IJ. He is rather tachycardic in a rapid Atrial fib with heart rate to the 140s. at times e is having salvos of VPCs as well. He has an indurated , reddened area in his pubic area abutting the left inner thigh as well. It is quite tender to touch. Unclear how longstanding these findings are. The patient is on a high FI02 at 80%. He has a clear CXR. He does have a bilirubin of [address] abdo/pelcvise just showed sludge in the gb. Alk phos is not particularly elevated. He is on about 16 mcg/min of levophed presently. His creatinine is >5. It was reportedly 2.2 earlier this month. the patient has a 2 lead PPM. He has a colostomy related to a history of ulcerative colitis. In addition, he has a history of porostate cancer treated with brachytherapy. He has a history of CAD and Had an OH in 2010. He appears to have a sternotomy scar but I am nt awre of what was done. The patiuent is currently in shock and critical condition. The ED spe to [facility] and the patient was accepted pending an open bed. 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 The patient is in profound shock. He is on the ventilator. he has acute on chronic kidney injury Plan:: 1) abx:: Patient started on Zosyn 2)Ventilatory management 3)Renal consult:: No urgent need for dialysis yet. 4)Pressors:: patient on Levophed and Vasopressin. 5) Fluids :: Patient got over 4-5 liters of fluid and is gaetting 25 gms albumin. 6) Surgical consult :: No urology on staff. We will have to decide of patient requires transfer and if he is ultimately safe for transfer. Prognosis is guarded. Past Medical History Cardiac Medical History: Reports: Coronary Artery Disease, Myocardial Infarction - 2011, Hyperlipidema, Hypertension Pulmonary Medical History: Denies: Asthma, Bronchitis, Chronic Obstructive Pulmonary Disease (COPD), Pneumonia Neurological Medical History: Denies: Seizures Renal/ Medical History: Reports: Other - Renal insufficiency GI Medical History: Reports: Ulcerative Colitis, Other - Cancer of the colon Musculoskeltal Medical History: Denies: Arthritis Psychiatric Medical History: Reports: Depression Hematology: Reports: Anemia Past Surgical History Past Surgical History: Reports: Appendectomy, Colostomy, Coronary Stent - X3 Social/Family History - Social History Lives with: Family Smoking Status: Unknown if Ever Smoked Frequency of Alcohol Use: None Hx Recreational Drug Use: No Drugs: None Hx Prescription Drug Abuse: No - Medication/Allergies Home Medications: Allopurinol [Zyloprim 100 mg Tablet] 100 mg PO DAILY 09/22/19 Doxazosin Mesylate [Cardura 2 mg Tablet] 1 mg PO DAILY 09/22/19 Folic Acid 1 mg PO DAILY 09/22/19 Furosemide [Lasix 40 mg Tablet] 40 mg PO DAILY 09/22/19 Metoprolol Tartrate [Lopressor 25 mg Tablet] 12.5 mg PO Q12 09/22/19 Rosuvastatin Calcium [Crestor] 20 mg PO DAILY 09/22/19 Fludrocortisone Acetate [Florinef 0.1 mg Tablet] 0.1 mg PO DAILY 04/19/20 Allergies/Adverse Reactions: No Known Allergies Allergy (Verified 04/19/20 15:12) Physical Exam Vital Signs: Temp Pulse Resp BP Pulse Ox 24 H 92/31 L 98 05/19/20 16:00 05/19/20 16:15 05/19/20 16:15 Intake & Output 05/18/20 05/19/20 05/20/20 06:59 06:59 06:59 Intake Total 4072 Output Total 320 Balance 3752 Weight 132.7 kg Weight/Height Weight 132.7 kg Height 6 ft General appearance: PRESENT: morbidly obese, severe distress Head exam: PRESENT: atraumatic, normocephalic Eye exam: PRESENT: conjunctiva pink Mouth exam: PRESENT: moist, neck supple Neck exam: PRESENT: full ROM. ABSENT: tenderness Respiratory exam: PRESENT: accessory muscle use, decreased breath sounds Cardiovascular exam: PRESENT: irregular rhythm, +S1, +S2 Pulses: PRESENT: normal radial pulses, +1 pedal pulses bilateral GI/Abdominal exam: PRESENT: distended, soft Rectal exam: PRESENT: deferred Gentrourinary exam: PRESENT: other - the patient has reness and induation in the pubis extending to the scrotum and the inside of theleft thight. Extremities exam: ABSENT: calf tenderness, clubbing, joint swelling Musculoskeletal exam: PRESENT: full ROM - Has multiple scatterd ehhcymoses below the left knee. Neurological exam: PRESENT: alert, oriented to person, oriented to place Laboratory/Radiographs Laboratory Results: 05/19/20 11:00 05/19/20 11:00 05/19/20 05/19/20 05/19/20 11:00 11:00 11:00 WBC 21.5 H RBC 3.21 L Hgb 8.6 L Hct 26.5 L MCV 83 MCH 26.7 L MCHC 32.3 RDW 22.5 H Plt Count 190 Seg Neutrophils % Not Reportable Carbonic Acid HCO3/H2CO3 Ratio ABG pH ABG pCO2 ABG pO2 ABG HCO3 ABG O2 Saturation ABG Base Excess VBG pH 7.35 VBG pCO2 30.6 L VBG HCO3 16.4 L VBG Base Excess -8.3 FiO2 Sodium 131.7 L Potassium 4.6 Chloride 98 Carbon Dioxide 16 L Anion Gap 18 BUN 82 H Creatinine 5.31 H Est GFR ( Amer) 13 L Glucose 55 L Lactic Acid Calcium 6.7 L* Total Bilirubin 10.1 H AST 373 H Alkaline Phosphatase 101 Total Protein 5.9 L Albumin 2.5 L Urine Color Urine Appearance Urine pH Ur Specific [place] Urine Protein Urine Glucose (UA) Urine Ketones Urine Blood Urine RBC (Auto) Blood Type Antibody Screen 05/19/20 05/19/20 05/19/20 11:00 11:10 11:22 WBC RBC Hgb Hct MCV MCH MCHC RDW Plt Count Seg Neutrophils % Carbonic Acid HCO3/H2CO3 Ratio ABG pH ABG pCO2 ABG pO2 ABG HCO3 ABG O2 Saturation ABG Base Excess VBG pH VBG pCO2 VBG HCO3 VBG Base Excess FiO2 Sodium Potassium Chloride Carbon Dioxide Anion Gap BUN Creatinine Est GFR ( Amer) Glucose Lactic Acid 5.3 H Calcium Total Bilirubin AST Alkaline Phosphatase Total Protein Albumin Urine Color ED Urine Appearance SLIGHTLY-CLOUDY Urine pH 5.0 Ur Specific [place] 1.016 Urine Protein 30 H Urine Glucose (UA) NEGATIVE Urine Ketones NEGATIVE Urine Blood MODERATE H Urine RBC (Auto) 18 Blood Type O POSITIVE Antibody Screen NEGATIVE 05/19/20 05/19/20 11:55 13:48 WBC RBC Hgb Hct MCV MCH MCHC RDW Plt Count Seg Neutrophils % Carbonic Acid 0.78 L HCO3/H2CO3 Ratio 18:1 ABG pH 7.37 ABG pCO2 26.0 L ABG pO2 57.9 L ABG HCO3 14.7 L ABG O2 Saturation 90.0 L ABG Base Excess -9.5 VBG pH VBG pCO2 VBG HCO3 VBG Base Excess FiO2 2L Sodium Potassium Chloride Carbon Dioxide Anion Gap BUN Creatinine Est GFR ( Amer) Glucose Lactic Acid 5.5 H Calcium Total Bilirubin AST Alkaline Phosphatase Total Protein Albumin Urine Color Urine Appearance Urine pH Ur Specific [place] Urine Protein Urine Glucose (UA) Urine Ketones Urine Blood Urine RBC (Auto) Blood Type Antibody Screen 05/19/20 11:00 Troponin I 0.193 Impressions: Chest X-Ray 05/19/20 10:57 IMPRESSION: Cardiomegaly. No acute findings. Head CT 05/19/20 12:08 IMPRESSION: Posterior fossa arachnoid cyst. No other significant finding. EVIDENCE OF ACUTE STROKE: NO. Abdomen/Pelvis CT 05/19/20 12:09 IMPRESSION: Slightly hyperdense gallbladder suggestive of milk of calcium gallbladder versus numerous tiny gallstones. Right lower quadrant ostomy. Renal vascular calcifications. No acute findings. Critical Time Critical Time (minutes): 90 -: The care of a critically ill patient is dynamic. This note represents a static moment in the admission process. Orders and treatments may be given simultan eously and urgently, and time is not loss prevention representative of the treatment process. This patient requires Critical Care secondary to life threatening organ or limb dysfunction. Without Critical Care services, the patient is at risk for increased mortality and morbidity.
[2020-05-19] MEDS: ALBUMIN HUMAN 12.5 GM/50 ML RTUINJ IV SCH ×2 (18:20→19:30)
[2020-05-19] MEDS ORDERED: AMIODARONE HCL INJ 150 MG/3 ML VIAL IV ONE ×2 (18:22→18:24)
[2020-05-19 18:23] LABS: CALCIUM 6.4 mg/dL (8.4-10.2)
[2020-05-19] MEDS ORDERED: PHENYLEPHRINE HCL INJ/PF 10 MG/1 ML SDV ONE ×2 (18:27→21:25)
[2020-05-19 18:34] LABS: WHITE BLOOD COUNT 39.7 10^3/uL (4.0-10.5)
[2020-05-19 18:35] LABS: HEMOGLOBIN 7.8 g/dL (13.5-17.0)
[2020-05-19 18:36] LABS: PLATELET COUNT 200 10^3/uL (150-450)
[2020-05-19] MEDS ORDERED: SODIUM BICARBONATE 8.4% INJ 50 MEQ/50 ML DISP.SYRIN ONE ×5 (18:37→21:13)
--- NOTE | 2020-05-19 18:43 | RADIOLOGY REPORT (SQ) ---
EXAM DESCRIPTION: KUB/ABDOMEN (SINGLE VIEW) IMAGES COMPLETED DATE/TIME: 05/19/2020 6:18 pm REASON FOR STUDY: NG tube placement COMPARISON: None. NUMBER OF VIEWS: One view. TECHNIQUE: Supine radiographic image of the upper abdomen acquired. LIMITATIONS: None. FINDINGS: BOWEL GAS PATTERN: Normal bowel gas pattern. No dilated loops. CALCIFICATIONS: No suspicious calcifications. SOFT TISSUES: No gross mass or suggestion of organomegaly. HARDWARE: Nasogastric tube, tip in stomach. BONES: No acute fracture. No worrisome bone lesions. OTHER: No other significant finding. IMPRESSION: TIP OF THE NASOGASTRIC TUBE IS IN THE STOMACH. TECHNICAL DOCUMENTATION: JOB ID: [id number] 2010 [employer]- All Rights Reserved Reading location - IP/workstation name: [email or web address]
[2020-05-19 18:45] LABS: ABSOLUTE LYMPHOCYTES# (MANUAL) 4.4 10^3/uL (0.5-4.7); ABSOLUTE MONOCYTES # (MANUAL) 4.8 10^3/uL (0.1-1.4); BAND NEUTROPHILS % (MANUAL) 5 % (3-5); BASOPHILS % (MANUAL) 0 % (0-2); EOSINOPHILS % (MANUAL) 0 % (0-6); IMMATURE MONONUCLEAR% (MANUAL) 1 % (0); LYMPHOCYTES % (MANUAL) 11 % (13-45); MONOCYTES % (MANUAL) 12 % (3-13); NUCLEATED RED BLOOD CELLS 2 /100 WBC (0); PROMYELOCYTES % (MANUAL) 1 % (0); SEGMENTED NEUTROPHILS % (MAN) 70 % (42-78); TOTAL CELLS COUNTED 100
[2020-05-19 18:49] LABS: ANISOCYTOSIS 3+; BURR CELLS SLIGHT; POIKILOCYTOSIS 2+; SCHISTOCYTES 2+; TOXIC GRANULATION 1+; TOXIC VACUOLATION PRESENT
[2020-05-19 18:50] LABS: OVALOCYTES 1+; PLATELET CLUMPS PRESENT; PLATELET COMMENT ADEQUATE; TEAR DROP CELLS 1+
[2020-05-19] MEDS ORDERED: LIDOCAINE HCL/D5W/PF 2,000 MG/250 ML RTUINJ IV ONE (18:52)
[2020-05-19] MEDS ORDERED: MAGNESIUM SULFATE/D5W 2 GM/200 ML RTUPB IV ONE (18:54)
[2020-05-19] MEDS ORDERED: PIPERACILLIN SODIUM/TAZOBACTAM 2.25 GM in NORMAL SALINE 50 ML IV SCH (19:00)
--- NOTE | 2020-05-19 20:18 | PDOC CONSULTATION ---
Consultation Consult Date: 05/19/20 Provider Consulted: YESIKA JOYNER Consult reason:: Evaluate groin infection History of Present Illness Admission Date/PCP: 05/19/20 16:20 MELITA MYERS MD History of Present Illness: OSCAR JHON is a 75 year old male currently on chemotherapy for myelodysplastic syndrome presenting with several day history of progressively worsening left groin pain as well as leg pain followed by generalized malaise and weakness. Patient brought to the ER and was noted to have multisystem failure. Patient underwent fluid resuscitation and intubation and was transferred to the intensive care unit where he was noted to be severely hypotensive and tachycardic requiring more fluids and pressor support. I have had a discussion with the patient's son for a history. The son notes that the patient did not have any abdominal pain nor significant changes in his bowel movements via his colostomy. His son does note that his predominant symptoms in the last couple of days has been groin and leg pain. Past Medical History Cardiac Medical History: Reports: Coronary Artery Disease, Myocardial Infarction - 2011, Hyperlipidema, Hypertension Pulmonary Medical History: Denies: Asthma, Bronchitis, Chronic Obstructive Pulmonary Disease (COPD), Pneumonia Neurological Medical History: Denies: Seizures Renal/ Medical History: Reports: Other - Renal insufficiency GI Medical History: Reports: Other - Cancer of the colon status post resection and chemotherapy Musculoskeltal Medical History: Denies: Arthritis Psychiatric Medical History: Reports: Depression Hematology: Reports: Anemia Past Surgical History Past Surgical History: Reports: Colostomy, Coronary Stent - X3 Social History Lives with: Family Smoking Status: Unknown if Ever Smoked Frequency of Alcohol Use: None Hx Recreational Drug Use: No Drugs: None Hx Prescription Drug Abuse: No Family History Family History: Reviewed & Not Pertinent, DM Parental Family History Reviewed: No Children Family History Reviewed: No Sibling(s) Family History Reviewed.: No Medication/Allergy Home Medications: Allopurinol [Zyloprim 100 mg Tablet] 100 mg PO DAILY 09/22/19 Doxazosin Mesylate [Cardura 2 mg Tablet] 1 mg PO DAILY 09/22/19 Folic Acid 1 mg PO DAILY 09/22/19 Furosemide [Lasix 40 mg Tablet] 40 mg PO DAILY 09/22/19 Rosuvastatin Calcium [Crestor] 20 mg PO DAILY 09/22/19 Fludrocortisone Acetate [Florinef 0.1 mg Tablet] 0.1 mg PO DAILY 04/19/20 Colchicine [Colcrys 0.6 mg Tablet] 0.6 mg PO DAILY 05/19/20 Metoprolol Succinate [Toprol Xl 25 mg Tab.sr] 25 mg PO DAILY 05/19/20 Allergies/Adverse Reactions: No Known Allergies Allergy (Verified 04/19/20 15:12) Review of Systems ROS unobtainable: Due to endotracheal tube Physical Exam Vital Signs: Temp Pulse Resp BP Pulse Ox 101.1 F H 14 99/52 L 95 05/19/20 18:02 05/19/20 18:02 05/19/20 18:02 05/19/20 18:02 Intake & Output 05/18/20 05/19/20 05/20/20 06:59 06:59 06:59 Intake Total 5212 Output Total 320 Balance 4892 Weight 132.7 kg General appearance: PRESENT: obese Respiratory exam: PRESENT: clear to auscultation lasha Cardiovascular exam: PRESENT: tachycardia GI/Abdominal exam: PRESENT: other - Soft, morbidly obese, does not appear to be distended. Ostomy appears pink. Extremities exam: PRESENT: other - The left lower leg is diffusely edematous but no epidermal lysis. There is induration and multiple purpura lesions. With his edema I am unable to palpate any pulses in his feet. And his feet are cool. He does have palpable femoral pulses. Skin exam: PRESENT: other - At his left upper scrotum there is erythema and dark discoloration with a opening with a slight seropurulent drainage. There is some epidermal lysis in this region as well. It appears to be confined to this region of the upper scrotum and immediately adjacent groin region but not the upper leg. The skin outside the confines of this region feels supple with no abnormalities. Results Laboratory Results: 05/19/20 17:42 05/19/20 17:42 05/19/20 05/19/20 05/19/20 11:00 11:00 11:00 WBC 21.5 H RBC 3.21 L Hgb 8.6 L Hct 26.5 L MCV 83 MCH 26.7 L MCHC 32.3 RDW 22.5 H Plt Count 190 Seg Neutrophils % Not Reportable Carbonic Acid HCO3/H2CO3 Ratio ABG pH ABG pCO2 ABG pO2 ABG HCO3 ABG O2 Saturation ABG Base Excess VBG pH 7.35 VBG pCO2 30.6 L VBG HCO3 16.4 L VBG Base Excess -8.3 FiO2 Sodium 131.7 L Potassium 4.6 Chloride 98 Carbon Dioxide 16 L Anion Gap 18 BUN 82 H Creatinine 5.31 H Est GFR ( Amer) 13 L Glucose 55 L Lactic Acid Calcium 6.7 L* Total Bilirubin 10.1 H AST 373 H Alkaline Phosphatase 101 Total Protein 5.9 L Albumin 2.5 L Urine Color Urine Appearance Urine pH Ur Specific [address] Urine Protein Urine Glucose (UA) Urine Ketones Urine Blood Urine RBC (Auto) Blood Type Antibody Screen 05/19/20 05/19/20 05/19/20 11:00 11:10 11:22 WBC RBC Hgb Hct MCV MCH MCHC RDW Plt Count Seg Neutrophils % Carbonic Acid HCO3/H2CO3 Ratio ABG pH ABG pCO2 ABG pO2 ABG HCO3 ABG O2 Saturation ABG Base Excess VBG pH VBG pCO2 VBG HCO3 VBG Base Excess FiO2 Sodium Potassium Chloride Carbon Dioxide Anion Gap BUN Creatinine Est GFR ( Amer) Glucose Lactic Acid 5.3 H Calcium Total Bilirubin AST Alkaline Phosphatase Total Protein Albumin Urine Color ED Urine Appearance SLIGHTLY-CLOUDY Urine pH 5.[address] 1.016 Urine Protein 30 H Urine Glucose (UA) NEGATIVE Urine Ketones NEGATIVE Urine Blood MODERATE H Urine RBC (Auto) 18 Blood Type O POSITIVE Antibody Screen NEGATIVE 05/19/20 05/19/20 05/19/20 11:55 13:48 17:16 WBC RBC Hgb Hct MCV MCH MCHC RDW Plt Count Seg Neutrophils % Carbonic Acid 0.78 L HCO3/H2CO3 Ratio 18:1 ABG pH 7.37 ABG pCO2 26.0 L ABG pO2 57.9 L ABG HCO3 14.7 L ABG O2 Saturation 90.0 L ABG Base Excess -9.5 VBG pH VBG pCO2 VBG HCO3 VBG Base Excess FiO2 2L Sodium Potassium Chloride Carbon Dioxide Anion Gap BUN Creatinine Est GFR ( Amer) Glucose Lactic Acid 5.5 H 4.9 H Calcium Total Bilirubin AST Alkaline Phosphatase Total Protein Albumin Urine Color Urine Appearance Urine pH Ur Specific [address] Urine Protein Urine Glucose (UA) Urine Ketones Urine Blood Urine RBC (Auto) Blood Type Antibody Screen 05/19/20 05/19/20 05/19/20 17:42 17:42 18:36 WBC 39.7 H* RBC 2.89 L Hgb 7.8 L Hct 24.2 L MCV 84 MCH 26.9 L MCHC 32.2 RDW 22.8 H Plt Count 200 Seg Neutrophils % Not Reportable Carbonic Acid Cancelled HCO3/H2CO3 Ratio Cancelled ABG pH Cancelled ABG pCO2 Cancelled ABG pO2 Cancelled ABG HCO3 Cancelled ABG O2 Saturation Cancelled ABG Base Excess Cancelled VBG pH VBG pCO2 VBG HCO3 VBG Base Excess FiO2 Cancelled Sodium 131.0 L Potassium 5.0 Chloride 100 Carbon Dioxide 18 L Anion Gap 13 BUN 75 H Creatinine 5.19 H Est GFR ( Amer) 13 L Glucose 83 Lactic Acid Calcium 6.4 L* Total Bilirubin 10.0 H AST 364 H Alkaline Phosphatase 96 Total Protein 5.2 L Albumin 2.2 L Urine Color Urine Appearance Urine pH Ur Specific [address] Urine Protein Urine Glucose (UA) Urine Ketones Urine Blood Urine RBC (Auto) Blood Type Antibody Screen 05/19/20 11:00 Troponin I 0.193 Impressions: Abdomen Ultrasound 05/19/20 00:00 IMPRESSION: Hepatomegaly with hepatic steatosis. Mild cortical atrophy in the right kidney. Findings as described. KUB X-Ray 05/19/20 00:00 IMPRESSION: TIP OF THE NASOGASTRIC TUBE IS IN THE STOMACH. Chest X-Ray 05/19/20 10:57 IMPRESSION: Cardiomegaly. No acute findings. Head CT 05/19/20 12:08 IMPRESSION: Posterior fossa arachnoid cyst. No other significant finding. EVIDENCE OF ACUTE STROKE: NO. Abdomen/Pelvis CT 05/19/20 12:09 IMPRESSION: Slightly hyperdense gallbladder suggestive of milk of calcium gallbladder versus numerous tiny gallstones. Right lower quadrant ostomy. Renal vascular calcifications. No acute findings. Assessment & Plan - Diagnosis (1) Septic shock Is this a current diagnosis for this admission?: Yes Plan: Uncertain of the etiology but certainly infection related with his upper scrotal infection and possibly his left lower leg infection is high on the differential diagnosis, especially in a patient who is immunocompromised. I have reviewed the CT scan with radiology and there is no evidence of biliary dilatation and no visible bowel abnormalities. Patient has been placed on broad-spectrum antibiotics. He has undergone aggressive fluid resuscitation and pressor support. If we can resuscitate him to the point where he is stable enough to undergo an operation, I will plan a left upper scrotal debridement and certainly further debridement if I find evidence of spread from this area. I will also plan to make longitudinal incisions over his left lower leg to make sure I am not missing necrotizing fasciitis of the left lower leg. I have had a discussion with the son concerning the risk and benefits of the procedure. He understands that especially in reference to the left lower leg I may be making incisions that does not help and may have difficulties healing. Patient's prognosis is extremely poor.
[2020-05-19 20:33] LABS: ARTERIAL BLOOD BASE EXCESS -12.4 mmol/L; ARTERIAL BLOOD H2CO3 1.47 mmol/L (1.05-1.35); ARTERIAL BLOOD HCO3 15.9 mmol/L (20-24); ARTERIAL BLOOD O2 SATURATION 97.6 % (94-98); ARTERIAL BLOOD PCO2 48.9 mmHg (35-45); ARTERIAL BLOOD PO2 131.8 mmHg (80-100); ARTERIAL BLOOD TOTAL CO2 17.4 mmol/L (23-27)
[2020-05-19 20:34] LABS: ARTERIAL BLOOD FIO2 100%
[2020-05-19 20:35] LABS: ARTERIAL BLOOD PH 7.13 (7.35-7.45)
[2020-05-19] MEDS ORDERED: DEXTROSE 5%-WATER 250 ML with VASOPRESSIN 100 UNIT IV PRN ×2 (20:52)
[2020-05-19] MEDS ORDERED: DEXTROSE 5%-WATER 500 ML with AMIODARONE HCL 900 MG IV PRN ×2 (20:52)
[2020-05-19] MEDS ORDERED: LIDOCAINE IV PRN (20:53)
[2020-05-19] MEDS ORDERED: D5W IV PRN (20:53)
[2020-05-19] MEDS ORDERED: RINGERS SOLUTION,LACTATED 1,000 ML IV PRN (20:58)
--- NOTE | 2020-05-19 21:22 | PDOC PROGRESS REPORT ---
Subjective Progress Note for:: 05/19/20 Reason For Visit: SEPSIS,FAUSTO'S GANGRENE Physical Exam Vital Signs: Temp Pulse Resp BP Pulse Ox 101.1 F H 14 99/52 L 95 05/19/20 18:02 05/19/20 18:02 05/19/20 18:02 05/19/20 18:02 Intake & Output 05/18/20 05/19/20 05/20/20 06:59 06:59 06:59 Intake Total 5212 Output Total 320 Balance 4892 Weight 132.7 kg Results Laboratory Results: 05/19/20 17:42 05/19/20 17:42 05/19/20 05/19/20 05/19/20 11:00 11:00 11:00 WBC 21.5 H RBC 3.21 L Hgb 8.6 L Hct 26.5 L MCV 83 MCH 26.7 L MCHC 32.3 RDW 22.5 H Plt Count 190 Seg Neutrophils % Not Reportable Carbonic Acid HCO3/H2CO3 Ratio ABG pH ABG pCO2 ABG pO2 ABG HCO3 ABG O2 Saturation ABG Base Excess VBG pH 7.35 VBG pCO2 30.6 L VBG HCO3 16.4 L VBG Base Excess -8.3 FiO2 Sodium 131.7 L Potassium 4.6 Chloride 98 Carbon Dioxide 16 L Anion Gap 18 BUN 82 H Creatinine 5.31 H Est GFR ( Amer) 13 L Glucose 55 L Lactic Acid Calcium 6.7 L* Total Bilirubin 10.1 H AST 373 H Alkaline Phosphatase 101 Total Protein 5.9 L Albumin 2.5 L Urine Color Urine Appearance Urine pH Ur Specific [place] Urine Protein Urine Glucose (UA) Urine Ketones Urine Blood Urine RBC (Auto) Blood Type Antibody Screen 05/19/20 05/19/20 05/19/20 11:00 11:10 11:22 WBC RBC Hgb Hct MCV MCH MCHC RDW Plt Count Seg Neutrophils % Carbonic Acid HCO3/H2CO3 Ratio ABG pH ABG pCO2 ABG pO2 ABG HCO3 ABG O2 Saturation ABG Base Excess VBG pH VBG pCO2 VBG HCO3 VBG Base Excess FiO2 Sodium Potassium Chloride Carbon Dioxide Anion Gap BUN Creatinine Est GFR ( Amer) Glucose Lactic Acid 5.3 H Calcium Total Bilirubin AST Alkaline Phosphatase Total Protein Albumin Urine Color ED Urine Appearance SLIGHTLY-CLOUDY Urine pH 5.0 Ur Specific [place] 1.016 Urine Protein 30 H Urine Glucose (UA) NEGATIVE Urine Ketones NEGATIVE Urine Blood MODERATE H Urine RBC (Auto) 18 Blood Type O POSITIVE Antibody Screen NEGATIVE 05/19/20 05/19/20 05/19/20 11:55 13:48 17:16 WBC RBC Hgb Hct MCV MCH MCHC RDW Plt Count Seg Neutrophils % Carbonic Acid 0.78 L HCO3/H2CO3 Ratio 18:1 ABG pH 7.37 ABG pCO2 26.0 L ABG pO2 57.9 L ABG HCO3 14.7 L ABG O2 Saturation 90.0 L ABG Base Excess -9.5 VBG pH VBG pCO2 VBG HCO3 VBG Base Excess FiO2 2L Sodium Potassium Chloride Carbon Dioxide Anion Gap BUN Creatinine Est GFR ( Amer) Glucose Lactic Acid 5.5 H 4.9 H Calcium Total Bilirubin AST Alkaline Phosphatase Total Protein Albumin Urine Color Urine Appearance Urine pH Ur Specific [place] Urine Protein Urine Glucose (UA) Urine Ketones Urine Blood Urine RBC (Auto) Blood Type Antibody Screen 05/19/20 05/19/20 05/19/20 17:42 17:42 18:36 WBC 39.7 H* RBC 2.89 L Hgb 7.8 L Hct 24.2 L MCV 84 MCH 26.9 L MCHC 32.2 RDW 22.8 H Plt Count 200 Seg Neutrophils % Not Reportable Carbonic Acid Cancelled HCO3/H2CO3 Ratio Cancelled ABG pH Cancelled ABG pCO2 Cancelled ABG pO2 Cancelled ABG HCO3 Cancelled ABG O2 Saturation Cancelled ABG Base Excess Cancelled VBG pH VBG pCO2 VBG HCO3 VBG Base Excess FiO2 Cancelled Sodium 131.0 L Potassium 5.0 Chloride 100 Carbon Dioxide 18 L Anion Gap 13 BUN 75 H Creatinine 5.19 H Est GFR ( Amer) 13 L Glucose 83 Lactic Acid Calcium 6.4 L* Total Bilirubin 10.0 H AST 364 H Alkaline Phosphatase 96 Total Protein 5.2 L Albumin 2.2 L Urine Color Urine Appearance Urine pH Ur Specific [place] Urine Protein Urine Glucose (UA) Urine Ketones Urine Blood Urine RBC (Auto) Blood Type Antibody Screen 05/19/20 05/19/20 05/19/20 19:52 20:03 20:26 WBC RBC Hgb Hct MCV MCH MCHC RDW Plt Count Seg Neutrophils % Carbonic Acid Cancelled 1.47 H HCO3/H2CO3 Ratio Cancelled 10:1 ABG pH Cancelled 7.13 L* ABG pCO2 Cancelled 48.9 H ABG pO2 Cancelled 131.8 H ABG HCO3 Cancelled 15.9 L ABG O2 Saturation Cancelled 97.6 ABG Base Excess Cancelled -12.4 VBG pH VBG pCO2 VBG HCO3 VBG Base Excess FiO2 Cancelled 100% Sodium Potassium Chloride Carbon Dioxide Anion Gap BUN Creatinine Est GFR ( Amer) Glucose Lactic Acid 10.6 H Calcium Total Bilirubin AST Alkaline Phosphatase Total Protein Albumin Urine Color Urine Appearance Urine pH Ur Specific [place] Urine Protein Urine Glucose (UA) Urine Ketones Urine Blood Urine RBC (Auto) Blood Type Antibody Screen 05/19/20 11:00 Troponin I 0.193 Impressions: Abdomen Ultrasound 05/19/20 00:00 IMPRESSION: Hepatomegaly with hepatic steatosis. Mild cortical atrophy in the right kidney. Findings as described. KUB X-Ray 05/19/20 00:00 IMPRESSION: TIP OF THE NASOGASTRIC TUBE IS IN THE STOMACH. Chest X-Ray 05/19/20 10:57 IMPRESSION: Cardiomegaly. No acute findings. Head CT 05/19/20 12:08 IMPRESSION: Posterior fossa arachnoid cyst. No other significant finding. EVIDENCE OF ACUTE STROKE: NO. Abdomen/Pelvis CT 05/19/20 12:09 IMPRESSION: Slightly hyperdense gallbladder suggestive of milk of calcium gallbladder versus numerous tiny gallstones. Right lower quadrant ostomy. Renal vascular calcifications. No acute findings. Assessment & Plan - Diagnosis (1) Septic shock Is this a current diagnosis for this admission?: Yes Plan: Patient still unstable despite fluid resuscitation, pressor support, hyperventilation, bicarb drip and broad-spectrum antibiotics. Patient reached a point where his pressures were dwindling with the systolic pressures of around 60 and discussions were made with the patient's son about comfort measures however now patient has opened his eyes and squeezed hand to command with increased systolic pressure to 90. Will see how he does in the next hour. If he demonstrates any signs of the stability, will proceed with debridement. - Time Time Spent: 30 to 50 Minutes Anticipated Discharge Disposition: Uncertain Anticipated Discharge Timeframe: Uncertain
[2020-05-19] MEDS ORDERED: SODIUM BICARBONATE 8.4% INJ 50 MEQ/50 ML DISP.SYRIN IV ONE (21:45)
[2020-05-19] MEDS ORDERED: PHENYLEPHRINE HCL INJ/PF 10 MG/1 ML SDV IV ONE (21:45)
[2020-05-19] MEDS ORDERED: LIDOCAINE 2% INJ-PF (100 MG/5 ML) SYRINGE IV ONE (21:45)
[2020-05-19] MEDS ORDERED: NORMAL SALINE INJ/PF 0.9% 10 ML SDV IV PRN (21:54)
[2020-05-19] MEDS ORDERED: DEXTROSE 5%-WATER 1000 ML 1,000 ML with SODIUM BICARBONATE 150 MEQ IV PRN ×2 (22:00)
[2020-05-19] MEDS ORDERED: HEPARIN SOD (PORCINE) 5,000 UNIT/ML 1 ML VIAL SUBCUT SCH (22:00)
--- NOTE | 2020-05-19 22:01 | EKG REPORT ---
SEVERITY:- ABNORMAL ECG - ATRIAL FIBRILLATION, V-RATE 117-181 RIGHT BUNDLE BRANCH BLOCK : Confirmed by: Marian Delcid MD 19-May-2020 22:00:53
--- NOTE | 2020-05-19 22:01 | EKG REPORT ---
SEVERITY:- ABNORMAL ECG - PACEMAKER SPIKES OR ARTIFACTS ATRIAL FIBRILLATION, V-RATE 91-130 RUN OF VENTRICULAR PREMATURE COMPLEXES RIGHT BUNDLE BRANCH BLOCK : Confirmed by: Marian Delcid MD 19-May-2020 22:00:46
[2020-05-19 22:12] LABS: HEMATOCRIT 15.2 % (37.9-51.0); MEAN CORPUSCULAR HEMOGLOBIN 26.2 pg (27.0-33.4); MEAN CORPUSCULAR HGB CONC 31.5 g/dL (32.0-36.0); MEAN CORPUSCULAR VOLUME 83 fl (80-97); PLATELET COUNT 100 10^3/uL (150-450); RED BLOOD COUNT 1.84 10^6/uL (4.35-5.55); RED CELL DISTRIBUTION WIDTH 23.8 % (11.5-14.0); WHITE BLOOD COUNT 26.4 10^3/uL (4.0-10.5)
[2020-05-19] MEDS ORDERED: NORMAL SALINE 250 ML IV PRN ×2 (22:14)
--- NOTE | 2020-05-19 22:16 | PDOC PROGRESS REPORT ---
Subjective Reason For Visit: SEPSIS,FAUSTO'S GANGRENE Physical Exam Vital Signs: Temp Pulse Resp BP Pulse Ox 101.1 F H 14 99/52 L 95 05/19/20 18:02 05/19/20 18:02 05/19/20 18:02 05/19/20 18:02 Intake & Output 05/18/20 05/19/20 05/20/20 06:59 06:59 06:59 Intake Total 5212 Output Total 320 Balance 4892 Weight 132.7 kg Results Laboratory Results: 05/19/20 17:42 05/19/20 05/19/20 05/19/20 11:00 11:00 11:00 WBC 21.5 H RBC 3.21 L Hgb 8.6 L Hct 26.5 L MCV 83 MCH 26.7 L MCHC 32.3 RDW 22.5 H Plt Count 190 Seg Neutrophils % Not Reportable Carbonic Acid HCO3/H2CO3 Ratio ABG pH ABG pCO2 ABG pO2 ABG HCO3 ABG O2 Saturation ABG Base Excess VBG pH 7.35 VBG pCO2 30.6 L VBG HCO3 16.4 L VBG Base Excess -8.3 FiO2 Sodium 131.7 L Potassium 4.6 Chloride 98 Carbon Dioxide 16 L Anion Gap 18 BUN 82 H Creatinine 5.31 H Est GFR ( Amer) 13 L Glucose 55 L Lactic Acid Calcium 6.7 L* Total Bilirubin 10.1 H AST 373 H Alkaline Phosphatase 101 Total Protein 5.9 L Albumin 2.5 L Urine Color Urine Appearance Urine pH Ur Specific [place] Urine Protein Urine Glucose (UA) Urine Ketones Urine Blood Urine RBC (Auto) Blood Type Antibody Screen 05/19/20 05/19/20 05/19/20 11:00 11:10 11:22 WBC RBC Hgb Hct MCV MCH MCHC RDW Plt Count Seg Neutrophils % Carbonic Acid HCO3/H2CO3 Ratio ABG pH ABG pCO2 ABG pO2 ABG HCO3 ABG O2 Saturation ABG Base Excess VBG pH VBG pCO2 VBG HCO3 VBG Base Excess FiO2 Sodium Potassium Chloride Carbon Dioxide Anion Gap BUN Creatinine Est GFR ( Amer) Glucose Lactic Acid 5.3 H Calcium Total Bilirubin AST Alkaline Phosphatase Total Protein Albumin Urine Color ED Urine Appearance SLIGHTLY-CLOUDY Urine pH 5.0 Ur Specific [place] 1.016 Urine Protein 30 H Urine Glucose (UA) NEGATIVE Urine Ketones NEGATIVE Urine Blood MODERATE H Urine RBC (Auto) 18 Blood Type O POSITIVE Antibody Screen NEGATIVE 05/19/20 05/19/20 05/19/20 11:55 13:48 17:16 WBC RBC Hgb Hct MCV MCH MCHC RDW Plt Count Seg Neutrophils % Carbonic Acid 0.78 L HCO3/H2CO3 Ratio 18:1 ABG pH 7.37 ABG pCO2 26.0 L ABG pO2 57.9 L ABG HCO3 14.7 L ABG O2 Saturation 90.0 L ABG Base Excess -9.5 VBG pH VBG pCO2 VBG HCO3 VBG Base Excess FiO2 2L Sodium Potassium Chloride Carbon Dioxide Anion Gap BUN Creatinine Est GFR ( Amer) Glucose Lactic Acid 5.5 H 4.9 H Calcium Total Bilirubin AST Alkaline Phosphatase Total Protein Albumin Urine Color Urine Appearance Urine pH Ur Specific [place] Urine Protein Urine Glucose (UA) Urine Ketones Urine Blood Urine RBC (Auto) Blood Type Antibody Screen 05/19/20 05/19/20 05/19/20 17:42 17:42 18:36 WBC 39.7 H* RBC 2.89 L Hgb 7.8 L Hct 24.2 L MCV 84 MCH 26.9 L MCHC 32.2 RDW 22.8 H Plt Count 200 Seg Neutrophils % Not Reportable Carbonic Acid Cancelled HCO3/H2CO3 Ratio Cancelled ABG pH Cancelled ABG pCO2 Cancelled ABG pO2 Cancelled ABG HCO3 Cancelled ABG O2 Saturation Cancelled ABG Base Excess Cancelled VBG pH VBG pCO2 VBG HCO3 VBG Base Excess FiO2 Cancelled Sodium 131.0 L Potassium 5.0 Chloride 100 Carbon Dioxide 18 L Anion Gap 13 BUN 75 H Creatinine 5.19 H Est GFR ( Amer) 13 L Glucose 83 Lactic Acid Calcium 6.4 L* Total Bilirubin 10.0 H AST 364 H Alkaline Phosphatase 96 Total Protein 5.2 L Albumin 2.2 L Urine Color Urine Appearance Urine pH Ur Specific [place] Urine Protein Urine Glucose (UA) Urine Ketones Urine Blood Urine RBC (Auto) Blood Type Antibody Screen 05/19/20 05/19/20 05/19/20 19:52 20:03 20:26 WBC RBC Hgb Hct MCV MCH MCHC RDW Plt Count Seg Neutrophils % Carbonic Acid Cancelled 1.47 H HCO3/H2CO3 Ratio Cancelled 10:1 ABG pH Cancelled 7.13 L* ABG pCO2 Cancelled 48.9 H ABG pO2 Cancelled 131.8 H ABG HCO3 Cancelled 15.9 L ABG O2 Saturation Cancelled 97.6 ABG Base Excess Cancelled -12.4 VBG pH VBG pCO2 VBG HCO3 VBG Base Excess FiO2 Cancelled 100% Sodium Potassium Chloride Carbon Dioxide Anion Gap BUN Creatinine Est GFR ( Amer) Glucose Lactic Acid 10.6 H Calcium Total Bilirubin AST Alkaline Phosphatase Total Protein Albumin Urine Color Urine Appearance Urine pH Ur Specific [place] Urine Protein Urine Glucose (UA) Urine Ketones Urine Blood Urine RBC (Auto) Blood Type Antibody Screen 05/19/20 11:00 Troponin I 0.193 Impressions: Abdomen Ultrasound 05/19/20 00:00 IMPRESSION: Hepatomegaly with hepatic steatosis. Mild cortical atrophy in the right kidney. Findings as described. KUB X-Ray 05/19/20 00:00 IMPRESSION: TIP OF THE NASOGASTRIC TUBE IS IN THE STOMACH. Chest X-Ray 05/19/20 10:57 IMPRESSION: Cardiomegaly. No acute findings. Head CT 05/19/20 12:08 IMPRESSION: Posterior fossa arachnoid cyst. No other significant finding. EVIDENCE OF ACUTE STROKE: NO. Abdomen/Pelvis CT 05/19/20 12:09 IMPRESSION: Slightly hyperdense gallbladder suggestive of milk of calcium gallbladder versus numerous tiny gallstones. Right lower quadrant ostomy. Renal vascular calcifications. No acute findings. Assessment & Plan - Diagnosis (1) Septic shock Is this a current diagnosis for this admission?: Yes Plan: Systolic pressures of 60 despite pressor support. [employer] appropriately discussing with family concerning comfort measures only. - Time Anticipated Discharge Disposition: . Anticipated Discharge Timeframe: .
[2020-05-19] MEDS ORDERED: LORAZEPAM INJ 2 MG/1 ML VIAL IV ONE (22:20)
[2020-05-19] MEDS ORDERED: FENTANYL CITRATE INJ/PF 100 MCG/2 ML AMPUL ONE (22:21)
[2020-05-19] MEDS ORDERED: LORAZEPAM INJ 2 MG/1 ML VIAL ONE (22:21)
[2020-05-19] MEDS ORDERED: FENTANYL CITRATE INJ/PF 100 MCG/2 ML AMPUL IV ONE (22:21)
[2020-05-19] MEDS ORDERED: FENTANYL CITRATE INJ/PF 100 MCG/2 ML AMPUL IV PRN (22:25)
[2020-05-19 22:29] LABS: ABSOLUTE LYMPHOCYTES# (MANUAL) 3.7 10^3/uL (0.5-4.7); ABSOLUTE MONOCYTES # (MANUAL) 5.3 10^3/uL (0.1-1.4); BASOPHILS % (MANUAL) 0 % (0-2); EOSINOPHILS % (MANUAL) 0 % (0-6); HEMOGLOBIN 4.8 g/dL (13.5-17.0); IMMATURE MONONUCLEAR% (MANUAL) 4 % (0); LYMPHOCYTES % (MANUAL) 13 % (13-45); MONOCYTES % (MANUAL) 20 % (3-13); SEGMENTED NEUTROPHILS % (MAN) 62 % (42-78); TOTAL CELLS COUNTED 100
[2020-05-19 22:30] LABS: ANISOCYTOSIS 3+; SCHISTOCYTES 2+; TEAR DROP CELLS 1+; TOXIC GRANULATION 1+; TOXIC VACUOLATION PRESENT
[2020-05-19 22:31] LABS: BURR CELLS SLIGHT; HYPOCHROMASIA SLIGHT; OVALOCYTES 1+; POIKILOCYTOSIS 2+; POLYCHROMASIA SLIGHT; TARGET CELLS SLIGHT
[2020-05-19 22:32] LABS: PLATELET COMMENT DECREASED
[2020-05-19 23:15] VITALS: BP 97/64
--- NOTE | 2020-05-19 23:31 | Death Summary ---
Summary Date : 05/19/20 Time of :: 22:40 Autopsy: No Resuscitation Status: Comfort Measures Only - Per son Sánchez, daughter Renee, daughter Elaine patient made comfort measures only. Hospital Course:: 75-year-old male with history of myelodysplastic syndrome, colon CA, and ulcerative colitis. Recently treated with Vidaza, and just released from [facility] several days ago. He was seen by his oncologist a few days ago with the pubic rash and was urged to be admitted but adamantly refused. Presented to the ED today via EMS for altered mental status which has been progressing over the past several days. Upon arrival to the ED patient was obtunded hemodynamically unstable. He was intubated in the ED a right IJ central venous catheter was placed. He was A. fib RVR and at times having runs of V. tach as well. He was found to have an indurated reddened area in his pubic area extending to the left inner thigh as well. He was requiring high 100% FiO2 on the ventilator. Chest x-ray was clear. He did have a bilirubin of 10, but the CT abdomen pelvis showed no intra-abdominal abnormalities except for sludge in the gallbladder. His creatinine was greater than 5 with a baseline of 2.2 earlier this month. He had a colostomy secondary to ulcerative colitis. Also has a history of prostate cancer for which she was treated with brachii therapy. Has a history of CAD status post PA in 2011 status post AICD at that time. He was admitted to the ICU with septic shock. Surgery did see the patient and plans on taking him to the OR for gangrenous scrotum and left groin. Patient remained too unstable to go to the OR never achieved a map of greater than 40 despite being maxed out on norepinephrine, vasopressin, and phenylephrine. He was on amiodarone drip for A. fib RVR did have multiple runs of V. tach therefore a lidocaine drip at 1 mg/min was started. He had a total of 11 L of lactated Ringer's. As well as a bicarb drip running at 150 cc an hour. Despite all efforts he remained acidotic and hypotensive. He was unable to maintain a sat of greater than 80% on FiO2 100%. His lactic acid continued to rise and was greater than 10, his hemoglobin dropped to 4.8. He was noted to have large amounts of dark red blood coming from his NG tube. Platelet count was 100. Per daughter Renee patient was a DNR on last admission to [place] several weeks ago. Given the futility of all our efforts family decided to make him comfort measures only. At 0 he was extubated and off pressors turned off. Patient at 2239 with family at bedside.
[2020-05-20 13:34] LABS: PATH REVIEW PATHOLOGIST REVIEWED
[2020-05-20 13:35] LABS: PATH REVIEW PATHOLOGIST REVIEWED
[2020-05-20 13:46] LABS: PATH REVIEW PATHOLOGIST REVIEWED
--- NOTE | 2020-05-20 21:21 | EKG REPORT ---
SEVERITY:- ABNORMAL ECG - ATRIAL FIBRILLATION, V-RATE 95-176 RIGHT BUNDLE BRANCH BLOCK : Confirmed by: Marian Delcid MD 20-May-2020 21:20:06
--- NOTE | 2020-06-14 13:09 | PDOC DISCHARGE SUMMARY ---
Impression - Admit/DC Date/PCP Admission Date/Primary Care Provider: 05/19/20 16:20 MELITA MYERS MD Discharge Date: 05/19/20 - Additional Information Resuscitation Status: Comfort Measures Only - Per son Sánchez, daughter Renee, daughter Elaine patient made comfort measures only. Referrals: MELITA MYERS MD [Primary Care Provider] - Follow up as needed Home Medications: Allopurinol [Zyloprim 100 mg Tablet] 100 mg PO DAILY 09/22/19 Doxazosin Mesylate [Cardura 2 mg Tablet] 1 mg PO DAILY 09/22/19 Folic Acid 1 mg PO DAILY 09/22/19 Furosemide [Lasix 40 mg Tablet] 40 mg PO DAILY 09/22/19 Rosuvastatin Calcium [Crestor] 20 mg PO DAILY 09/22/19 Fludrocortisone Acetate [Florinef 0.1 mg Tablet] 0.1 mg PO DAILY 04/19/20 Colchicine [Colcrys 0.6 mg Tablet] 0.6 mg PO DAILY 05/19/20 Metoprolol Succinate [Toprol Xl 25 mg Tab.sr] 25 mg PO DAILY 05/19/20 History of Present Illiness History of Present Illness: History of present illness: 75-year-old male with history of myelodysplastic syndrome and past history of colon CA and ulcerative colitis recently treated with Vidaza and just released from [facility] several days ago now transported here via EMS for altered mental status which is been progressive over several days per family and hypotension which is been noted today by EMS. Patient is in extremis and unable to relate his own history. I have reviewed extensive old records here and also have spoken with his local oncologist Dr. Davis by telephone. indicates that she saw this gentleman in clinic 2 days ago and started him on Augmentin for a cellulitis in the left groin area and she recommended hospitalization and the patient was adamantly opposed to this and refused admis edilia. Son reiterates that the patient is a full code at this time. 05/19 The patient was seen by his oncologist a few days ago with this pubic rash and was urged to be admitted but thepatient apparently declined. I was asked to see the patient by Dr. Ratliff for possible admission. When I saw him he was still responsive and speaking. However, he appeared to be getting more obtunded. Given his hemodynamic instabilty and worsening mental status we intubated him. I than placed a CVP in the Right IJ. He is rather tachycardic in a rapid Atrial fib with heart rate to the 140s. at times e is having salvos of VPCs as well. He has an indurated , reddened area in his pubic area abutting the left inner thigh as well. It is quite tender to touch. Unclear how longstanding these findings are. The patient is on a high FI02 at 80%. He has a clear CXR. He does have a bilirubin of [address] abdo/pelcvise just showed sludge in the gb. Alk phos is not particularly elevated. He is on about 16 mcg/min of levophed presently. His creatinine is >5. It was reportedly 2.2 earlier this month. the patient has a 2 lead PPM. He has a colostomy related to a history of ulcerative colitis. In addition, he has a history of porostate cancer treated with brachytherapy. He has a history of CAD and Had an DC in 2010. He appears to have a sternotomy scar but I am nt awre of what was done. The patiuent is currently in shock and critical condition. The ED spe to [place] and the patient was accepted pending an open bed. 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 The patient is in profound shock. He is on the ventilator. he has acute on chronic kidney injury Plan:: 1) abx:: Patient started on Zosyn 2)Ventilatory management 3)Renal consult:: No urgent need for dialysis yet. 4)Pressors:: patient on Levophed and Vasopressin. 5) Fluids :: Patient got over 4-5 liters of fluid and is gaetting 25 gms albumin. 6) Surgical consult :: No urology on staff. We will have to decide of patient requires transfer and if he is ultimately safe for transfer. Prognosis is guarded. Hospital Course Hospital Course: The patient was admitted ton The ICU. He was unstable from the time of admisssion. He required vigorous pressor support. He developed intaractable shock and metaboloc acidosis. During the course of his time in the ICU he developed ventricular arrhythmias. Despite aggressive rersuscitation efforts his conditiondid not improve. After about 1 hour in the ICU his daughter was contacted and given what appeared to be an inexorable poor course she decided to make the patient cofort care. He was extubated , aggressive treatment stopped and the patient a short time later. Physical Exam Vital Signs: Temp Pulse Resp BP Pulse Ox 97.5 F 0 L 97/64 L 82 L 05/19/20 23:00 05/19/20 23:00 05/19/20 22:19 05/19/20 21:46 Head exam: PRESENT: atraumatic Eye exam: PRESENT: PERRLA Ear exam: PRESENT: TM's normal bilaterally Mouth exam: PRESENT: neck supple Neck exam: PRESENT: full ROM. ABSENT: carotid bruit, JVD, thyromegaly Respiratory exam: PRESENT: accessory muscle use, crackles Cardiovascular exam: PRESENT: +S1, +S2 Pulses: PRESENT: normal radial pulses Rectal exam: PRESENT: deferred Gentrourinary exam: PRESENT: other - The patient had erythema and induation in the skin over the pubi area extending to the inner left thigh. Neurological exam: PRESENT: altered Results Laboratory Results: WBC 26.4 10^3/uL (4.0-10.5) H 05/19/20 21:23 RBC 1.84 10^6/uL (4.35-5.55) L 05/19/20 21:23 Hgb 4.8 g/dL (13.5-17.0) L* D 05/19/20 21:23 Hct 15.2 % (37.9-51.0) L 05/19/20 21:23 MCV 83 fl (80-97) 05/19/20 21:23 MCH 26.2 pg (27.0-33.4) L 05/19/20 21:23 MCHC 31.5 g/dL (32.0-36.0) L 05/19/20 21:23 RDW 23.8 % (11.5-14.0) H 05/19/20 21:23 Plt Count 100 10^3/uL (150-450) L 05/19/20 21:23 Lymph % (Auto) Not Reportable 05/19/20 21:23 Cobb % (Auto) Not Reportable 05/19/20 21:23 Eos % (Auto) Not Reportable 05/19/20 21:23 Baso % (Auto) Not Reportable 05/19/20 21:23 Absolute Neuts (auto) Not Reportable 05/19/20 21:23 Absolute Lymphs (auto) Not Reportable 05/19/20 21:23 Absolute Monos (auto) Not Reportable 05/19/20 21:23 Absolute Eos (auto) Not Reportable 05/19/20 21:23 Absolute Basos (auto) Not Reportable 05/19/20 21:23 Total Counted 100 05/19/20 21:23 Seg Neutrophils % Not Reportable 05/19/20 21:23 Seg Neuts % (Manual) 62 % (42-78) 05/19/20 21:23 Band Neutrophils % 5 % (3-5) 05/19/20 17:42 Lymphocytes % (Manual) 13 % (13-45) 05/19/20 21:23 Atypical Lymphs % 1 % (0) 05/19/20 21:23 Monocytes % (Manual) 20 % (3-13) H 05/19/20 21:23 Eosinophils % (Manual) 0 % (0-6) 05/19/20 21:23 Basophils % (Manual) 0 % (0-2) 05/19/20 21:23 Metamyelocytes % 1 % (0-1) 05/19/20 11:00 Myelocytes % 1 % (0) H 05/19/20 11:00 Promyelocytes % 1 % (0) H 05/19/20 17:42 Immature Leukocytes % 4 % (0) H 05/19/20 21:23 Abs Neuts (Manual) 16.4 10^3/uL (1.7-8.2) H 05/19/20 21:23 Abs Lymphs (Manual) 3.7 10^3/uL (0.5-4.7) 05/19/20 21:23 Abs Monocytes (Manual) 5.3 10^3/uL (0.1-1.4) H 05/19/20 21:23 Absolute Eos (Manual) 0.0 10^3/uL (0.0-0.6) 05/19/20 21:23 Abs Basophils (Manual) 0.0 10^3/uL (0.0-0.2) 05/19/20 21:23 Nucleated RBCs 2 /100 WBC (0) 05/19/20 17:42 Toxic Granulation 1+ 05/19/20 21:23 Toxic Vacuolation PRESENT 05/19/20 21:23 Dohle Bodies PRESENT 05/19/20 17:42 Clumped Platelets PRESENT 05/19/20 17:42 Platelet Comment DECREASED 05/19/20 21:23 Polychromasia SLIGHT 05/19/20 21:23 Hypochromasia SLIGHT 05/19/20 21:23 Poikilocytosis 2+ 05/19/20 21:23 Basophilic Stippling PRESENT 05/19/20 21:23 Anisocytosis 3+ 05/19/20 21:23 Spherocytes 1+ 05/19/20 11:00 Target Cells SLIGHT 05/19/20 21:23 Tear Drop Cells 1+ 05/19/20 21:23 Ovalocytes 1+ 05/19/20 21:23 Naima Cells SLIGHT 05/19/20 21:23 Acanthocytes (Spur) 1+ 05/19/20 21:23 Schistocytes 2+ 05/19/20 21:23 PT 25.5 SEC (11.4-15.4) H 05/19/20 11:00 INR 2.32 05/19/20 11:00 Carbonic Acid 1.47 mmol/L (1.05-1.35) H 05/19/20 20: HCO3/H2CO3 Ratio 10:1 05/19/20 20:26 ABG pH 7.13 (7.35-7.45) L* 05/19/20 20:26 ABG pCO2 48.9 mmHg (35-45) H 05/19/20 20: ABG pO2 131.8 mmHg (80-100) H 05/19/20 20:26 ABG HCO3 15.9 mmol/L (20-24) L 05/19/20 20: ABG Total CO2 17.4 mmol/L (23-27) L 05/19/20 20: ABG O2 Saturation 97.6 % (94-98) 05/19/20 20: ABG Base Excess -12.4 mmol/L 05/19/20 20: VBG pH 7.35 (7.30-7.42) 05/19/20 11:00 VBG pCO2 30.6 mmHg (35-63) L 05/19/20 11:00 VBG HCO3 16.4 mmol/L (20-32) L 05/19/20 11:00 VBG Base Excess -8.3 mmol/L 05/19/20 11:00 FiO2 100% 05/19/20 20:26 Sodium 131.0 mmol/L (137-145) L 05/19/20 17:42 Potassium 5.0 mmol/L (3.6-5.0) 05/19/20 17:42 Chloride 100 mmol/L (98-107) 05/19/20 17:42 Carbon Dioxide 18 mmol/L (22-30) L 05/19/20 17:42 Anion Gap 13 (5-19) 05/19/20 17:42 BUN 75 mg/dL (7-20) H 05/19/20 17:42 Creatinine 5.19 mg/dL (0.52-1.25) H 05/19/20 17:42 Est GFR ( Amer) 13 (>60) L 05/19/20 17:42 Est GFR (MDRD) Non-Af 11 (>60) L 05/19/20 17:42 Glucose 83 mg/dL (75-110) 05/19/20 17:42 POC Glucose 115 mg/dL (70-110) H 05/19/20 18:48 Lactic Acid 10.6 mmol/L (0.7-2.1) H 05/19/20 20:03 Calcium 6.4 mg/dL (8.4-10.2) L* 05/19/20 17:42 Total Bilirubin 10.0 mg/dL (0.2-1.3) H 05/19/20 17:42 Direct Bilirubin 9.0 mg/dL (0.0-0.4) H 05/19/20 17:42 Neonat Total Bilirubin Not Reportable 05/19/20 17:42 Neonat Direct Bilirubin Not Reportable 05/19/20 17:42 Neonat Indirect Bili Not Reportable 05/19/20 17:42 AST 364 U/L (17-59) H 05/19/20 17:42 ALT 99 U/L (<50) H 05/19/20 17:42 Alkaline Phosphatase 96 U/L (38-126) 05/19/20 17:42 Troponin I 0.193 ng/mL 05/19/20 11:00 Total Protein 5.2 g/dL (6.3-8.2) L 05/19/20 17:42 Albumin 2.2 g/dL (3.5-5.0) L 05/19/20 17:42 Urine Color ED 05/19/20 11:10 Urine Appearance SLIGHTLY-CLOUDY 05/19/20 11:10 Urine pH 5.0 (5.0-9.0) 05/19/20 11:10 Ur Specific [place] 1.016 05/19/20 11:10 Urine Protein 30 mg/dL (NEGATIVE) H 05/19/20 11:10 Urine Glucose (UA) NEGATIVE mg/dL (NEGATIVE) 05/19/20 11:10 Urine Ketones NEGATIVE mg/dL (NEGATIVE) 05/19/20 11:10 Urine Blood MODERATE (NEGATIVE) H 05/19/20 11:10 Urine Nitrite (Reflex) NEGATIVE (NEGATIVE) 05/19/20 11:10 Urine Bilirubin NEGATIVE (NEGATIVE) 05/19/20 11:10 Urine Urobilinogen NEGATIVE mg/dL (<2.0) 05/19/20 11:10 Leukocyte Esterase Rfl NEGATIVE (NEGATIVE) 05/19/20 11:10 Urine RBC (Auto) 18 /HPF 05/19/20 11:10 Urine WBC (Reflex) 1 /HPF 05/19/20 11:10 Squamous Epi Cells Auto <1 /HPF 05/19/20 11:10 Urine Ascorbic Acid NEGATIVE (NEGATIVE) 05/19/20 11:10 Urine Opiates Screen UNCONFIRMED POSITIVE 05/19/20 11:10 Urine Methadone Screen NEGATIVE 05/19/20 11:10 Ur Barbiturates Screen NEGATIVE 05/19/20 11:10 Ur Phencyclidine Scrn NEGATIVE 05/19/20 11:10 Ur Amphetamines Screen NEGATIVE 05/19/20 11:10 U Benzodiazepines Scrn NEGATIVE 05/19/20 11:10 Urine Cocaine Screen NEGATIVE 05/19/20 11:10 U Marijuana (THC) Screen NEGATIVE 05/19/20 11:10 Slides for Path Review PATHOLOGIST REVIEWED 05/19/20 21:23 Blood Type O POSITIVE 05/19/20 11:22 Blood Type Confirm O POSITIVE 05/19/20 11:22 Antibody Screen NEGATIVE 05/19/20 11:22 Crossmatch See Detail 05/19/20 11:22 05/19/20 11:00 Troponin I 0.193 Impressions: Abdomen Ultrasound 05/19/20 00:00 IMPRESSION: Hepatomegaly with hepatic steatosis. Mild cortical atrophy in the right kidney. Findings as described. Chest X-Ray 05/19/20 00:00 IMPRESSION: Tube and catheter placement as described. Cardiomegaly with pulmonary edema. KUB X-Ray 05/19/20 00:00 IMPRESSION: TIP OF THE NASOGASTRIC TUBE IS IN THE STOMACH. Chest X-Ray 05/19/20 10:57 IMPRESSION: Cardiomegaly. No acute findings. Head CT 05/19/20 12:08 IMPRESSION: Posterior fossa arachnoid cyst. No other significant finding. EVIDENCE OF ACUTE STROKE: NO. Abdomen/Pelvis CT 05/19/20 12:09 IMPRESSION: Slightly hyperdense gallbladder suggestive of milk of calcium gallbladder versus numerous tiny gallstones. Right lower quadrant ostomy. Pravin al vascular calcifications. No acute findings. Plan Health Concerns: Septic shiock, ? Ryan's gangrene Time Spent: Greater than 30 Minutes - About 120 minutes were spent trying to resuscitate the patient. Stroke Is this a Stroke Patient?: No Stroke Pt being discharged on Anti-thrombolytic therapy?: No Reason(s) for not prescribing Anti-thrombolytic therapy:: Not indicated Stroke Pt being discharged on Anti-coagulation therapy?: No Reason(s) for not prescribing Anti-coagulation therapy:: Not indicated Acute Heart Failure Is this a Heart Failure Patient?: No
--- NOTE | 2020-06-14 13:19 | Operative Report ---
Bedside Procedure - History of Present Illness Indication for Procedure: hypotension Provider: ALEISHA BROTHERS - Central Line Right Internal jugular Central line pre-insertion: Sterile PPE donned, Chloraprep applied Central line lumen type: Triple Anesthetic type: 2% Lidocaine mL's of anesthesia: 5 Ultrasound guided: Yes Line secured with sutures: Yes Central line post-insertion: Blood return from lumens, Sterile dressing applied Number of attempts: 1 Complications: No
--- NOTE | 2020-06-14 13:22 | Operative Report ---
Bedside Procedure - History of Present Illness Indication for Procedure: acute respiratory failure Provider: ALEISHA BROTHERS - Intubation Orotracheal Time of Intubation: 17:00 Airway evaluation: Normal anatomy Mallampati Classification: Class 4 Medications: Etomidate, Versed Intubation method: Orotracheal Blade type: Shahnaz Blade size: 4 Equipment used: Glidescope ETT size: 8.0 ETT secured at: Teeth ETT secured at (cm): 24 Post Intubation Xray: No Intubation Complications: No complications
== END 2020-05-19 22:40 | disposition left against medical advice (07) | DRG 871 ==
LOC: ER 10:51 → EH 16:20 → ICU 18:03
PROVIDERS: ADMIT Internal Medicine; ATTEND Internal Medicine
PROC: 5A1935Z Respiratory Ventilation, Less than 24 Consecutive Hours (ICD-10-PCS; principal; 2020-05-19)
PROC: 02HV33Z Insertion of Infusion Device into Superior Vena Cava, Percutaneous Approach (ICD-10-PCS; 2020-05-19)
PROC: 0BH17EZ Insertion of Endotracheal Airway into Trachea, Via Natural or Artificial Opening (ICD-10-PCS; 2020-05-19)
DX: A41.89 Other specified sepsis (principal); R65.21 Severe sepsis with septic shock; N17.9 Acute kidney failure, unspecified; I47.2 Ventricular tachycardia; N49.3 Fournier gangrene; D46.9 Myelodysplastic syndrome, unspecified; I48.91 Unspecified atrial fibrillation; Z51.5 Encounter for palliative care; Z93.3 Colostomy status; K80.80 Other cholelithiasis without obstruction; I25.10 Atherosclerotic heart disease of native coronary artery without angina pectoris; Z66 Do not resuscitate; I25.2 Old myocardial infarction; I10 Essential (primary) hypertension; E78.5 Hyperlipidemia, unspecified; F32.9 Major depressive disorder, single episode, unspecified; Z95.5 Presence of coronary angioplasty implant and graft; Z90.49 Acquired absence of other specified parts of digestive tract; Z85.038 Personal history of other malignant neoplasm of large intestine; Z95.0 Presence of cardiac pacemaker; Z85.46 Personal history of malignant neoplasm of prostate; Z95.2 Presence of prosthetic heart valve; Z92.25 Personal history of immunosuppression therapy
CPT/HCPCS: 36415; 36600; 36620; 70450; 71045; 74018; 74176; 76705; 80053; 80307; 81001; 82803; 82962; 83605; 84484; 85025; 85610; 86850; 86900; 86901; 87040; 87070; 87077; 87150; 87186; 93005; 93010; 94002; 96361; 96365; 96367; 96375; 99291; 99292; J0610; J0282; J2001; J2060; J2250; J2370; J3010; J3370; J3475; J3490; J7030; J7060; J7120; P9047